=== PATIENT | male | born 1945 | race Caucasian/White ===

== ENCOUNTER 2018-03-13 15:01 | Inpatient (IN) | payer MEDICARE, OTHER ==
[2018-03-13] MEDS ORDERED: VANCOMYCIN IV PER PHARMACY 1 EACH MISC MISCELLANE PRN (15:20)
[2018-03-13] MEDS ORDERED: SODIUM CHLORIDE 0.9% 1,000 ML IV STA (15:20)
--- NOTE | 2018-03-13 15:24 | ED ---
General Adult HPI - General Chief complaint: Recheck/Abnormal Lab/Rx Stated complaint: Wounds on Feet-sent to get IV antibiotics Time Seen by Provider: 03/13/18 15:12 Source: patient, RN notes reviewed Mode of arrival: wheelchair Limitations: no limitations - History of Present Illness Initial comments: Patient 72-year-old male presenting to the emergency room from the wound clinic for admission for wounds to his feet bilaterally. Caregivers at bedside stating that symptoms started approximately a month ago. Patient does stay on a snf. Patient has been following wound care finished up a course of antibiotics of Bactrim. Was seen today and advised come here to the emergency room for admission for failure of outpatient treatment and increased infection. Patient denies any recent fever, chills, shortness of breath, chest pain, back pain, abdominal pain, nausea or vomiting, headaches or visual changes, or any other complaints. - Related Data Home Medications Medication Instructions Recorded Confirmed Acetaminophen Tab [Tylenol Tab] 650 mg PO Q4H PRN 02/06/18 03/13/18 Aspirin [Adult Low Dose Aspirin EC] 81 mg PO DAILY 02/06/18 03/13/18 Ketoconazole 2% Shampoo [Nizoral] 1 applic TOPICAL DIRECTED 02/06/18 03/13/18 Levothyroxine Sodium [Synthroid] 50 mcg PO DAILY 02/06/18 03/13/18 Lisinopril [Zestril] 2.5 mg PO DAILY 02/06/18 03/13/18 Metoprolol Succinate (ER) [Toprol 25 mg PO DAILY 02/06/18 03/13/18 Xl] Omeprazole 20 mg PO DAILY 02/06/18 03/13/18 Potassium Chloride ER [K-Dur 10] 10 meq PO BID 02/06/18 03/13/18 Pravastatin Sodium [Pravachol] 20 mg PO HS 02/06/18 03/13/18 Rivaroxaban [Xarelto] 15 mg PO HS 02/06/18 03/13/18 Torsemide [Demadex] 40 mg PO BID 02/06/18 03/13/18 HYDROcodone/APAP 7.5-325MG [[place] 1 tab PO BID 03/06/18 03/13/18 7.5-325] Amino Acids/Protein Hydrolys 30 ml PO BID 03/13/18 03/13/18 [Pro-Stat Supplement] HYDROcodone/APAP 7.5-325MG [[place] 1 tab PO Q4H PRN 03/13/18 03/13/18 7.5-325] Ketoconazole 2% Shampoo [Nizoral] 1 applic TOPICAL DIRECTED 03/13/18 03/13/18 Mylanta Susp 30 ml PO Q8HR PRN 03/13/18 03/13/18 Sertraline [Zoloft] 50 mg PO HS 03/13/18 03/13/18 Allergies Allergy/AdvReac Type Severity Reaction Status Date / Time No Known Allergies Allergy Verified 03/13/18 15:41 Review of Systems ROS Statement: Those systems with pertinent positive or pertinent negative responses have been documented in the HPI. ROS Other: All systems not noted in ROS Statement are negative. Past Medical History Past Medical History: Atrial Fibrillation, Deep Vein Thrombosis (DVT), GERD/ Reflux, Hyperlipidemia, Hypertension, Vascular Disorder Additional Past Medical History / Comment(s): anemia, 02 2l/min per n/c prn for shortness of breath,hypothyroidism, frequent micturation, wound bottom of left foot, dry skin dermatitis, uses walker History of Any Multi-Drug Resistant Organisms: None Reported Past Surgical History: Unable to Obtain Past Anesthesia/Blood Transfusion Reactions: Unable to Obtain Past Psychological History: Anxiety, Depression Smoking Status: Unknown if ever smoked Past Alcohol Use History: None Reported Past Drug Use History: None Reported - Past Family History Mother Family Medical History: Unable to Obtain General Exam - General Exam Comments Initial Comments: General: The patient is awake and alert, in no distress, and does not appear acutely ill. Eye: Pupils are equal, round and reactive to light, extra-ocular movements are intact. No nystagmus. There is normal conjunctiva bilaterally. No signs of icterus. Ears, nose, mouth and throat: There are moist mucous membranes and no oral lesions. Neck: The neck is supple, there is no tenderness or JVD. Cardiovascular: There is a regular rate and rhythm. No murmur, rub or gallop is appreciated. Respiratory: Lungs are clear to auscultation, respirations are non-labored, breath sounds are equal. No wheezes, stridor, rales, or rhonchi. Musculoskeletal: Normal ROM, no tenderness. Strength 5/5. Sensation intact. Pulses equal bilaterally 2+. Neurological: A&O x 3. CN II-XII intact, There are no obvious motor or sensory deficits. Coordination appears grossly intact. Speech is normal. Skin: Also reviewed lesions measures approximately 4-5 cm in length by 1 cm. There is redness and erythema locally to the top of the foot on the left. Small ulceration to left blakely area measures approximate centimeter across. Ulcer forming on the bottom of the left foot with no drainage. Psychiatric: Cooperative, appropriate mood & affect, normal judgment. Limitations: no limitations Course Vital Signs 03/13/18 15:04 Temperature 98.2 F Pulse Rate 73 Respiratory 18 Rate Blood Pressure 118/72 O2 Sat by Pulse 95 Oximetry Medical Decision Making - Medical Decision Making Patient's x-ray showing no evidence of an osteomyelitis. Patient's labs been reviewed. Cultures are pending. Patient started on Rocephin and vancomycin here in the emergency room. Patient sent in by Dr. Todd for admission for IV antibiotics and outpatient treatment failure. Was on Bactrim previously. Does have bilateral foot ulcers that are infected. Case was discussed with attending physician Dr. Hobbs did discuss the case with Dr. Jansen with the patient. - Lab Data Result diagrams: 03/13/18 15:28 03/13/18 15:28 Lab Results 03/13/18 03/13/18 03/13/18 Range/Units 15:28 15:28 15:28 WBC 7.6 (3.8-10.6) k/uL RBC 4.79 (4.30-5.90) m/uL Hgb 13.4 (13.0-17.5) gm/dL Hct 42.0 (39.0-53.0) % MCV 87.6 (80.0-100.0) fL MCH 27.9 (25.0-35.0) pg MCHC 31.8 (31.0-37.0) g/dL RDW 15.0 (11.5-15.5) % Plt Count 338 (150-450) k/uL Neutrophils % 66 % Lymphocytes % 25 % Monocytes % 5 % Eosinophils % 1 % Basophils % 1 % Neutrophils # 5.0 (1.3-7.7) k/uL Lymphocytes # 1.9 (1.0-4.8) k/uL Monocytes # 0.4 (0-1.0) k/uL Eosinophils # 0.1 (0-0.7) k/uL Basophils # 0.1 (0-0.2) k/uL PT 9.9 (9.0-12.0) sec INR 1.0 (<1.2) APTT 22.2 (22.0-30.0) sec Sodium 143 (137-145) mmol/L Potassium 4.5 (3.5-5.1) mmol/L Chloride 101 (98-107) mmol/L Carbon Dioxide 26 (22-30) mmol/L Anion Gap 16 mmol/L BUN 31 H (9-20) mg/dL Creatinine 1.14 (0.66-1.25) mg/dL Est GFR (CKD-EPI)AfAm 73 (>60 ml/min/1.73 sqM) Est GFR (CKD-EPI)NonAf 63 (>60 ml/min/1.73 sqM) Glucose 96 (74-99) mg/dL Calcium 9.3 (8.4-10.2) mg/dL Total Bilirubin 0.4 (0.2-1.3) mg/dL AST 38 (17-59) U/L ALT 40 (21-72) U/L Alkaline Phosphatase 72 (38-126) U/L Total Protein 7.1 (6.3-8.2) g/dL Albumin 4.0 (3.5-5.0) g/dL Disposition Clinical Impression: Skin ulcers of foot, bilateral, Cellulitis, Failure of outpatient treatment Disposition: ADMITTED IP TO THIS [facility] Condition: Stable Is patient prescribed a controlled substance at d/c from ED?: No Referrals: Chalino Allen MD [Primary Care Provider] - 1-2 days Time of Disposition: 16:37
[2018-03-13] MEDS ORDERED: cefTRIAXone IN SWFI 1,000 MG/10 ML SYRINGE IVP STA (15:29)
[2018-03-13 15:56] LABS: Basophils # (A) 0.1 k/uL (0-0.2); Basophils % (A) 1 %; Eosinophils # (A) 0.1 k/uL (0-0.7); Eosinophils % (A) 1 %; HGB 13.4 gm/dL (13.0-17.5); Lymphocytes # (A) 1.9 k/uL (1.0-4.8); Lymphocytes % (A) 25 %; MCH 27.9 pg (25.0-35.0); MCHC 31.8 g/dL (31.0-37.0); MCV 87.6 fL (80.0-100.0); Mean Platelet Volume 6.5; Monocytes # (A) 0.4 k/uL (0-1.0); Monocytes % (A) 5 %; Neutrophils % (A) 66 %; Platelet Count 338 k/uL (150-450); RBC 4.79 m/uL (4.30-5.90); WBC 7.6 k/uL (3.8-10.6)
[2018-03-13] MEDS ORDERED: VANCOMYCIN 1,750 MG in SODIUM CHLORIDE 0.9% 250 ML IVPB ONE (16:00)
[2018-03-13 16:03] LABS: Calcium 9.3 mg/dL (8.4-10.2); Potassium 4.5 mmol/L (3.5-5.1); Total Bilirubin 0.4 mg/dL (0.2-1.3); Total Protein 7.1 g/dL (6.3-8.2)
[2018-03-13 16:06] LABS: Partial Thromboplastin Time 22.2 sec (22.0-30.0); Prothrombin Time 9.9 sec (9.0-12.0)
--- NOTE | 2018-03-13 16:07 | XR ---
EXAMINATION TYPE: XR foot limited bilateral DATE OF EXAM: 03/13/2018 CLINICAL HISTORY: Nonhealing wounds bilaterally TECHNIQUE: Frontal, oblique, and lateral images of the bilateral feet are obtained. COMPARISON: None FINDINGS: There is no acute fracture/dislocation evident in either foot. The joint spaces in the bi lateral feet appear within normal limits. No suspicious cortical destruction or periosteal reaction i s seen. Symmetric small to moderate size inferior calcaneal spur is noted bilaterally. The overlying soft tissue appears unremarkable bilaterally. IMPRESSION: There is no convincing radiographic evidence for acute osteomyelitis in either foot.
[2018-03-13] MEDS ORDERED: ONDANSETRON 4 MG/2 ML VIAL IVP PRN (16:37)
[2018-03-13] MEDS ORDERED: MORPHINE SULFATE 2 MG/ML SYRINGE IV PRN (16:37)
[2018-03-13] MEDS ORDERED: NALOXONE 0.4 MG/ML 1 ML VIAL IV PRN (16:37)
[2018-03-13] MEDS ORDERED: ACETAMINOPHEN TAB 325 MG TAB PO PRN (16:37)
[2018-03-13] MEDS ORDERED: SODIUM CHLORIDE 0.9% 1,000 ML IV ONE (16:37)
[2018-03-13 20:34] LABS: Appearance,Urine Clear (Clear); Bilirubin,Urine Negative (Negative); Blood,Urine Small (Negative); Color,Urine Yellow; Glucose,Urine (UA) Negative (Negative); Ketones,Urine Negative (Negative); Leukocyte Esterase,Urine Negative (Negative); Nitrite,Urine Negative (Negative); Protein,Urine Trace (Negative); RBC,Urine 15 /hpf (0-5); Specific Gravity,Urine 1.014 (1.001-1.035); Squamous Epithelial Cell,Urine <1 /hpf (0-4); Urobilinogen,Urine <2.0 mg/dL (<2.0); WBC,Urine 2 /hpf (0-5)
[2018-03-13] MEDS: PRAVASTATIN SODIUM 20 MG TAB PO SCH (22:18)
[2018-03-13] MEDS: HYDROcodone/APAP 5-325MG 1 EACH TAB PO PRN (22:19)
[2018-03-13] MEDS: RIVAROXABAN 15 MG TAB PO SCH (22:19)
[2018-03-13] MEDS: SERTRALINE 50 MG TAB PO SCH (22:19)
--- NOTE | 2018-03-13 22:54 | P.HPIM ---
History of Present Illness H&P Date: 03/13/18 Chief Complaint: Bilateral LE ulcers Mr. Whaley is a 70 old white male with mental retardation and PMH of A.fib, DVT , hypothyroidism, hyperlipidemia, anemia , anxiety was sent from the wound care clinic for bilateral LE ulcers. Pt had the swelling on ad off for the past 1 month and was following with Wound care clinic. He was given Bactrim but they was no improvement in his ulcers and so sent here for IV Abx. Pt is mentaly retareded and canot provide much history. So most of it is gathered [facility]. He c/o pain and swelling of both legs and feet. No chest pain, SOB or palpitations. No abdominal pain, nausea ,vomiting or diarrhea. Pt wears diapers for urinary incontinence. Review of Systems REVIEW OF SYSTEMS: PSYCH: no anxiety NEURO:No c/o weakness of the extremties, No facial droop, No speech abnormalities. HEMATOLOGIC: No history of easy bleeding and bruising . No recent infections . RESPIRATORY: No cough, No SOB, No chest discomfort. INTEGUMENT: no rashes OPHTHALMOLOGIC: No blurry vision and no eye discharge : urinary incontinence CARDIAC: No chest pain , shortness of breath , paroxysmal nocturnal dyspnea MUSCULOSKELETAL : No Aches or pains in the joints or muscles. GI: No abdominal pain, nausea, vomiting or diarrhea Past Medical History Past Medical History: Atrial Fibrillation, Dementia, Deep Vein Thrombosis (DVT) , GERD/Reflux, Hyperlipidemia, Hypertension, Vascular Disorder Additional Past Medical History / Comment(s): anemia, 02 2l/min per n/c prn for shortness of breath,hypothyroidism, frequent micturation, wound josemanuel feet dry skin dermatitis, per [facility] pt had a pne vaccine in past but not sure of date. pt uses walker with 1 assist and a w/c chaser.pt has intellectual disabilty-formerly [facility] staff stated pt able to read/write some .needs assist to set up food tray and over see. use short simple instructions History of Any Multi-Drug Resistant Organisms: MRSA Date of last positivie culture/infection: per [facility] [place]- in the last 30- 45 days(?begining of january 2018) MDRO Source:: leg Past Surgical History: Unable to Obtain Additional Past Surgical History / Comment(s): called [facility] [place]- unable to obtain any sx hx. Past Anesthesia/Blood Transfusion Reactions: Unable to Obtain Past Psychological History: Anxiety, Depression Additional Psychological History / Comment(s): developmentally delayed, mentally challenged, dementia Smoking Status: Unknown if ever smoked Past Alcohol Use History: Unable to Obtain Past Drug Use History: Unable to Obtain - Past Family History Mother Family Medical History: Unable to Obtain Father Family Medical History: Unable to Obtain Medications and Allergies Home Medications Medication Instructions Recorded Confirmed Type Acetaminophen Tab [Tylenol Tab] 650 mg PO Q4H PRN 02/06/18 03/13/18 History Aspirin [Adult Low Dose Aspirin EC] 81 mg PO DAILY 02/06/18 03/13/18 History Ketoconazole 2% Shampoo [Nizoral] 1 applic TOPICAL DIRECTED 02/06/18 History Levothyroxine Sodium [Synthroid] 50 mcg PO DAILY 02/06/18 03/13/18 History Lisinopril [Zestril] 2.5 mg PO DAILY 02/06/18 03/13/18 History Metoprolol Succinate (ER) [Toprol 25 mg PO DAILY 02/06/18 03/13/18 History Xl] Omeprazole 20 mg PO DAILY 02/06/18 03/13/18 History Potassium Chloride ER [K-Dur 10] 10 meq PO BID 02/06/18 03/13/18 History Pravastatin Sodium [Pravachol] 20 mg PO HS 02/06/18 03/13/18 History Rivaroxaban [Xarelto] 15 mg PO HS 02/06/18 03/13/18 History Torsemide [Demadex] 40 mg PO BID 02/06/18 03/13/18 History HYDROcodone/APAP 7.5-325MG [[place] 1 tab PO BID 03/06/18 03/13/18 History 7.5-325] Amino Acids/Protein Hydrolys 30 ml PO BID 03/13/18 03/13/18 History [Pro-Stat Supplement] HYDROcodone/APAP 7.5-325MG [[place] 1 tab PO Q4H PRN 03/13/18 03/13/18 History 7.5-325] Ketoconazole 2% Shampoo [Nizoral] 1 applic TOPICAL DIRECTED 03/13/18 History Mylanta Susp 30 ml PO Q8HR PRN 03/13/18 03/13/18 History Sertraline [Zoloft] 50 mg PO HS 03/13/18 03/13/18 History Allergies Allergy/AdvReac Type Severity Reaction Status Date / Time No Known Allergies Allergy Verified 03/13/18 15:41 Physical Exam Vitals: Vital Signs Temp Pulse Pulse Resp BP BP Pulse Ox 03/13/18 18:48 97.4 F L 70 12 116/63 96 03/13/18 18:44 98.7 F 72 18 122/78 98 03/13/18 15:04 98.2 F 73 18 118/72 95 Intake and Output 03/13/18 03/13/18 03/13/18 06:59 14:59 22:59 Other: Weight 99.79 kg GENERAL : in no distress, and does not appear acutely ill. Eye: Pupils are equal, round and reactive to light, no pallor or icterus Ears, nose, mouth and throat: There are moist mucous membranes and no oral lesions. Neck: The neck is supple, there is no tenderness or JVD. Cardiovascular: There is a regular rate and rhythm. No murmur, rub or gallop is appreciated. Respiratory: Lungs are clear to auscultation, respirations are non-labored, breath sounds are equal. No wheezes, stridor, rales, or rhonchi. Musculoskeletal: Normal ROM, no tenderness. Strength 5/5. Sensation intact. Pulses equal bilaterally 2+. Neurological: A&O x 2. No focal deficits . Speech is normal. Lower Extremities - ulcer of 6/5 cm seen on the dorsum of the left foot - there is granulation tissue with surroundings erythema and + tenderness.There are multiple ulcers in different stages of healing with surroundings erythema on the right foot also. Psychiatric: Cooperative, appropriate mood & affect Results CBC & Chem 7: 03/13/18 15:28 03/13/18 15:28 Labs: Abnormal Lab Results - Last 24 Hours (Table) 03/13/18 03/13/18 Range/Units 15:28 20:00 BUN 31 H (9-20) mg/dL Urine Protein Trace H (Negative) Urine Blood Small H (Negative) Urine RBC 15 H (0-5) /hpf Thrombosis Risk Factor Assmnt - Choose All That Apply Any of the Below Risk Factors Present?: Yes Each Factor Represents 1 point: Medical pt on bed rest, Obesity (BMI >25), Swollen legs (current) Other Risk Factors: Yes Each Risk Factor Represents 2 Points: Age 61-74 years Each Risk Factor Represents 3 Points: History of DVT/PE Thrombosis Risk Factor Assessment Total Risk Factor Score: 8 Thrombosis Risk Factor Assessment Level: High Risk Assessment and Plan Assessment: ASSESSMENT Bilateral LE cellulitis - failed OP Abx therapy Atrial Fibrillation Mental retardation Deep Vein Thrombosis Hypothyrodism Urinary incontinence GERD/Reflux Hyperlipidemia Hypertension Peripheral Vascular Disorder Plan: Pt has been started on Vancomycin and a dose of Ceftriaxone was given in the ED. Vascular surgery Dr. Packer , who sent him to the ER has been consulted. Resume home meds and further recs to follow depending on the progress of the patient.
[2018-03-14] MEDS: LEVOTHYROXINE 50 MCG TAB PO SCH (05:54)
[2018-03-14] MEDS: VANCOMYCIN 1,500 MG in SODIUM CHLORIDE 0.9% 250 ML IVPB SCH ×2 (05:54→18:49)
[2018-03-14] MEDS: TORSEMIDE 20 MG TAB PO SCH ×2 (08:54→20:52)
[2018-03-14] MEDS: PANTOPRAZOLE 40 MG TABLET PO SCH (08:54)
[2018-03-14] MEDS: POTASSIUM CHLORIDE ER 10 MEQ TAB.ER.PRT PO SCH ×2 (08:54→20:52)
[2018-03-14] MEDS: LISINOPRIL 2.5 MG TAB PO SCH (08:55)
[2018-03-14] MEDS: ASPIRIN 81 MG PO SCH (08:55)
[2018-03-14] MEDS: METOPROLOL SUCCINATE (ER) 25 MG TAB.ER.24H PO SCH (08:56)
[2018-03-14] MEDS ORDERED: NON-FORMULARY DRUG (Amino Acids/Protein Hydrolys [Pro-Stat Supplement] 30 ML) PO SCH (09:00)
[2018-03-14] MEDS: HYDROcodone/APAP 5-325MG 1 EACH TAB PO PRN ×3 (09:08→20:51)
[2018-03-14 09:35] LABS: Basophils % (A) 1 %; Eosinophils # (A) 0.1 k/uL (0-0.7); Eosinophils % (A) 1 %; HCT 36.6 % (39.0-53.0); HGB 11.7 gm/dL (13.0-17.5); Lymphocytes # (A) 1.2 k/uL (1.0-4.8); Lymphocytes % (A) 20 %; MCH 27.8 pg (25.0-35.0); MCHC 31.9 g/dL (31.0-37.0); MCV 87.1 fL (80.0-100.0); Mean Platelet Volume 6.5; Monocytes # (A) 0.3 k/uL (0-1.0); Monocytes % (A) 5 %; Neutrophils # (A) 4.3 k/uL (1.3-7.7); Neutrophils % (A) 71 %; Platelet Count 258 k/uL (150-450); RBC 4.21 m/uL (4.30-5.90); RDW 15.2 % (11.5-15.5)
[2018-03-14 09:47] LABS: Anion Gap 14 mmol/L; Blood Urea Nitrogen 19 mg/dL (9-20); Carbon Dioxide 23 mmol/L (22-30); Chloride 104 mmol/L (98-107); Glucose 118 mg/dL (74-99); Potassium 4.7 mmol/L (3.5-5.1); Sodium 141 mmol/L (137-145)
[2018-03-14 10:09] VITALS: BMI 32.5
--- NOTE | 2018-03-14 14:01 | CONS ---
DATE OF CONSULTATION: 03/14/2018 This is a 70-year-old gentleman well known to me from the wound clinic. He came to the Wound Clinic yesterday. He has multiple ulcer on both lower extremities involving the dorsal aspect of the foot and down the heel area bilaterally. Patient has a foul odor smell noted from the wound. The patient has been admitted with IV antibiotic and local wound care. MEDICAL HISTORY: History of mental retardation, history of atrial fibrillation, history of hyperlipidemia, history of DVT in the past. PHYSICAL EXAMINATION: NECK: Supple. Trachea central. Chest is auscultation. ABDOMEN: Soft. Femorals are palpable. Patient has a bilateral lower extremity multiple ulcer involving the dorsum aspect of the foot and also involving the toes. PLAN: IV antibiotic and local wound care. Follow with you. Thank you very much. SHARRI / GMN: [id number] / MTDD
--- NOTE | 2018-03-14 16:16 | P.PN ---
Subjective Progress Note Date: 03/14/18 progress note being Dictated for Dr. Sanchez interval history:Mr. Whaley is a 70 old white male with mental retardation and PMH of A.fib, DVT, hypothyroidism, hyperlipidemia, anemia , anxiety was sent from the wound care clinic for bilateral LE ulcers. Pt had the swelling on ad off for the past 1 month and was following with Wound care clinic. He was given Bactrim but they was no improvement in his ulcers and so sent here for IV Abx. Pt is mentaly retareded and canot provide much history. So most of it is gathered from the care givers at the residential. He c/o pain and swelling of both legs and feet. No chest pain, SOB or palpitations. No abdominal pain, nausea ,vomiting or diarrhea. Pt wears diapers for urinary incontinence. Review of Systems REVIEW OF SYSTEMS: PSYCH: no anxiety NEURO:No c/o weakness of the extremties, No facial droop, No speech abnormalities. HEMATOLOGIC: No history of easy bleeding and bruising . No recent infections . RESPIRATORY: No cough, No SOB, No chest discomfort. INTEGUMENT: no rashes OPHTHALMOLOGIC: No blurry vision and no eye discharge : urinary incontinence CARDIAC: No chest pain , shortness of breath , paroxysmal nocturnal dyspnea MUSCULOSKELETAL : No Aches or pains in the joints or muscles. GI: No abdominal pain, nausea, vomiting or diarrhea 03/14/2018 no overnight events. maintained on IV antibiotics. local wound care as per vascular surgery.Afebrile, wound cultures pending.complains of right heel "aching" Objective - Vital Signs Vital signs: Vital Signs Temp 98.5 F 03/14/18 15:00 Pulse 80 03/14/18 15:00 Resp 18 03/14/18 15:00 BP 168/69 03/14/18 15:00 Pulse Ox 97 03/14/18 15:00 Intake & Output 03/13/18 03/14/18 03/14/18 18:59 06:59 18:59 Intake Total 1700 120 Output Total 300 Balance 1400 120 Weight 99.79 kg 99.79 kg Intake: Oral 1700 120 Output: Urine 300 Other: Voiding Method Incontinent Incontinent # Voids 3 3 # Bowel Movements 0 - Exam GENERAL : sitting up in bed, no acute distress Eye: Pupils are equal, round and reactive to light, no pallor or icterus Ears, nose, mouth and throat: There are moist mucous membranes and no oral lesions. Neck: The neck is supple, there is no tenderness or JVD. Cardiovascular: regular rate and rhythm. No murmur, rub or gallop is appreciated. Respiratory: Lungs are clear to auscultation, respirations are non-labored, breath sounds are equal. No wheezes, stridor, rales, or rhonchi. Musculoskeletal: Normal ROM, no tenderness. Strength 5/5. Sensation intact. Pulses equal bilaterally 2+. Neurological: A&O x 2. No focal deficits . Speech is normal. Lower Extremities - ulcer of 6/5 cm seen on the dorsum of the left foot - there is granulation tissue with surroundings erythema and + tenderness.There are multiple ulcers in different stages of healing with surroundings erythema on the right foot also, with foul odor. Psychiatric: Cooperative, appropriate mood & affect. mentally delayed. - Labs CBC & Chem 7: 03/14/18 08:55 03/14/18 08:55 Labs: Abnormal Lab Results - Last 24 Hours (Table) 03/13/18 03/13/18 03/14/18 Range/Units 15:28 20:00 08:55 RBC 4.21 L (4.30-5.90) m/uL Hgb 11.7 L (13.0-17.5) gm/dL Hct 36.6 L (39.0-53.0) % BUN 31 H (9-20) mg/dL Glucose (74-99) mg/dL Urine Protein Trace H (Negative) Urine Blood Small H (Negative) Urine RBC 15 H (0-5) /hpf 03/14/18 Range/Units 08:55 RBC (4.30-5.90) m/uL Hgb (13.0-17.5) gm/dL Hct (39.0-53.0) % BUN (9-20) mg/dL Glucose 118 H (74-99) mg/dL Urine Protein (Negative) Urine Blood (Negative) Urine RBC (0-5) /hpf Microbiology - Last 24 Hours (Table) 03/13/18 15:28 Gram Stain - Preliminary Foot - Left Wound Culture - Preliminary Assessment and Plan Assessment: ASSESSMENT multiple ulcers on bilateral lower extremities,bilateral feet.Bilateral LE cellulitis - failed OP Abx therapy Atrial Fibrillation Mental retardation Deep Vein Thrombosis Hypothyrodism Urinary incontinence GERD/Reflux Hyperlipidemia Hypertension Peripheral Vascular Disorder Plan: continue on current medication regime ,monitoring and symptomatic treatment. Maintain IV antibiotics, infectious disease consulted. Wound care as per vascular surgery. The impression and plan of care has been dictated as directed. : I performed a history and examination of this patient, discussed the same with the dictator. I agree with the dictator's note ,documented as a scribe. Any additional findings or plans will be noted.
[2018-03-14] MEDS: SERTRALINE 50 MG TAB PO SCH (20:52)
[2018-03-14] MEDS: RIVAROXABAN 15 MG TAB PO SCH (20:52)
[2018-03-14] MEDS: PRAVASTATIN SODIUM 20 MG TAB PO SCH (20:52)
[2018-03-15] MEDS: VANCOMYCIN 1,500 MG in SODIUM CHLORIDE 0.9% 250 ML IVPB SCH ×2 (06:00→17:44)
[2018-03-15] MEDS: LEVOTHYROXINE 50 MCG TAB PO SCH (06:00)
[2018-03-15] MEDS: TORSEMIDE 20 MG TAB PO SCH ×2 (08:15→21:35)
[2018-03-15] MEDS: PANTOPRAZOLE 40 MG TABLET PO SCH (08:15)
[2018-03-15] MEDS: POTASSIUM CHLORIDE ER 10 MEQ TAB.ER.PRT PO SCH ×2 (08:15→21:36)
[2018-03-15] MEDS: METOPROLOL SUCCINATE (ER) 25 MG TAB.ER.24H PO SCH (08:16)
[2018-03-15] MEDS: LISINOPRIL 2.5 MG TAB PO SCH (08:16)
[2018-03-15] MEDS: ASPIRIN 81 MG PO SCH (08:17)
[2018-03-15 10:01] LABS: Anion Gap 13 mmol/L; Blood Urea Nitrogen 18 mg/dL (9-20); Calcium 8.6 mg/dL (8.4-10.2); Carbon Dioxide 27 mmol/L (22-30); Chloride 100 mmol/L (98-107); Glucose 130 mg/dL (74-99); Potassium 4.3 mmol/L (3.5-5.1); Sodium 140 mmol/L (137-145)
--- NOTE | 2018-03-15 15:58 | CDI ---
Last Revision, September 2017 Documentation Clarification Form Date: 03/15/18 From: Shahnaz Padgett RN, CCDS Admit Date: 03/13/2018 5:47:00 PM Patient Name: Paco Whaley Visit Number: [id number] Discharge Date: ATTENTION: The Clinical Documentation Specialists (CDI) and [facility] Coding Staff appreciate your assistance in clarifying documentation. Please respond to the clarification below the line at the bottom and electronically sign. The CDI & [facility] Coding staff will review the response and follow-up if needed. Please note: Queries are made part of the Legal Health Record. If you have any questions, please contact the author of this message via ITS. Dr. Jennifer Janesn Atrial fibrillation is documented in the ER, H&P and and your progress notes. History/Risk Factors: A. Fibrillation, DVT, Hypothyroidism, Mental retardation, Anemia Clinical Indicators: Per past medical history and ongoing treatment. Treatment: ASA, Xarelto Monitor Labs In your professional opinion, can you please clarify the type of atrial fibrillation, if known? Chronic/Permanent Paroxysmal Persistent Other, please specify Unable to determine Please continue to document in your progress notes and discharge summary in order to capture severity of illness and risk of mortality. Include clinical findings that support your diagnosis. MTDD
[2018-03-15] MEDS ORDERED: VANCOMYCIN TROUGH DUE 1 EACH MISC MISCELLANE ONE (17:00)
--- NOTE | 2018-03-15 18:03 | P.PN ---
Subjective Progress Note Date: 03/15/18 progress note being Dictated for Dr. Sanchez interval history:Mr. Whaley is a 70 old white male with mental retardation and PMH of A.fib, DVT, hypothyroidism, hyperlipidemia, anemia , anxiety was sent from the wound care clinic for bilateral LE ulcers. Pt had the swelling on ad off for the past 1 month and was following with Wound care clinic. He was given Bactrim but they was no improvement in his ulcers and so sent here for IV Abx. Pt is mentaly retareded and canot provide much history. So most of it is gathered from the care givers at the custodial. He c/o pain and swelling of both legs and feet. No chest pain, SOB or palpitations. No abdominal pain, nausea ,vomiting or diarrhea. Pt wears diapers for urinary incontinence. Review of Systems REVIEW OF SYSTEMS: PSYCH: no anxiety NEURO:No c/o weakness of the extremties, No facial droop, No speech abnormalities. HEMATOLOGIC: No history of easy bleeding and bruising . No recent infections . RESPIRATORY: No cough, No SOB, No chest discomfort. INTEGUMENT: no rashes OPHTHALMOLOGIC: No blurry vision and no eye discharge : urinary incontinence CARDIAC: No chest pain , shortness of breath , paroxysmal nocturnal dyspnea MUSCULOSKELETAL : No Aches or pains in the joints or muscles. GI: No abdominal pain, nausea, vomiting or diarrhea 03/14/2018 no overnight events. maintained on IV antibiotics. local wound care as per vascular surgery.Afebrile, wound cultures pending.complains of right heel "aching" 03/15/2018 maintained on vancomycin. Infectious disease consult in place with further recommendations pending. Afebrile. Wound cultures growing gram- negative bacilli, presumptive MRSA. Objective - Vital Signs Vital signs: Vital Signs Temp 97.2 F L 03/15/18 14:25 Pulse 80 03/15/18 14:25 Resp 18 03/15/18 14:25 BP 141/68 03/15/18 14:25 Pulse Ox 97 03/15/18 14:25 Intake & Output 03/14/18 03/15/18 03/15/18 18:59 06:59 18:59 Intake Total 370 Output Total 300 525 Balance 70 -525 Weight 99.79 kg Intake: Intake, IV Titration 250 Amount Vancomycin 1,500 mg In 250 Sodium Chloride 0.9% 250 ml @ 125 mls/hr IVPB Q12H [facility] Rx#:[id number] Oral 120 Output: Urine 300 525 Other: Voiding Method Incontinent Incontinent Incontinent # Voids 2 2 2 # Bowel Movements 0 1 - Exam GENERAL : sitting up in bed, no acute distress Eye: Pupils are equal, round and reactive to light, no pallor or icterus Ears, nose, mouth and throat: There are moist mucous membranes and no oral lesions. Neck: The neck is supple, there is no tenderness or JVD. Cardiovascular: regular rate and rhythm. No murmur, rub or gallop is appreciated. Respiratory: Lungs are clear to auscultation, respirations are non-labored, breath sounds are equal. No wheezes, stridor, rales, or rhonchi. Musculoskeletal: Normal ROM, no tenderness. Strength 5/5. Sensation intact. Pulses equal bilaterally 2+. Neurological: A&O x 2. No focal deficits . Speech is normal. Lower Extremities - bilateral lower extremity dressings clean dry and intact Psychiatric: Cooperative, appropriate mood & affect. mentally delayed. Microbiology 03/13/18 15:28 Blood Blood Culture - Preliminary No Growth after 48 hours 03/13/18 15:28 Foot - Left Gram Stain - Preliminary 03/13/18 15:28 Foot - Left Wound Culture - Preliminary Gram Neg Bacilli Presumptive MRSA - Labs CBC & Chem 7: 03/14/18 08:55 03/15/18 09:01 Labs: Abnormal Lab Results - Last 24 Hours (Table) 03/15/18 Range/Units 09:01 Glucose 130 H (74-99) mg/dL Microbiology - Last 24 Hours (Table) 03/13/18 15:28 Blood Culture - Preliminary Blood No Growth after 48 hours 03/13/18 15:28 Gram Stain - Preliminary Foot - Left Wound Culture - Preliminary Gram Neg Bacilli Presumptive MRSA Assessment and Plan Assessment: ASSESSMENT multiple ulcers on bilateral lower extremities,bilateral feet.Bilateral LE cellulitis - failed OP Abx therapy . Wound cultures growing presumptive MRSA, gram-negative bacilli. Chronic Atrial Fibrillation Mental retardation Deep Vein Thrombosis Hypothyrodism Urinary incontinence GERD/Reflux Hyperlipidemia Hypertension Peripheral Vascular Disorder Plan: continue on current medication regime ,monitoring and symptomatic treatment. Maintain IV antibiotics as per ID. Await final culture results. Wound care as per vascular surgery. The impression and plan of care has been dictated as directed. : I performed a history and examination of this patient, discussed the same with the dictator. I agree with the dictator's note ,documented as a scribe. Any additional findings or plans will be noted.
[2018-03-15] MEDS: SERTRALINE 50 MG TAB PO SCH (21:36)
[2018-03-15] MEDS: PRAVASTATIN SODIUM 20 MG TAB PO SCH (21:36)
[2018-03-15] MEDS: RIVAROXABAN 15 MG TAB PO SCH (21:36)
[2018-03-15] MEDS: cefTRIAXone IN SWFI 2,000 MG/20 ML SYRINGE IVP SCH (23:22)
--- NOTE | 2018-03-15 23:41 | CONS ---
CONSULTATION DATE OF SERVICE: 03/15/2018 REASON FOR CONSULTATION: Bilateral lower extremity wounds and cellulitis. HISTORY OF PRESENT ILLNESS: The patient is a 72-year-old male with a past medical history significant for bilateral lower extremity venostasis ulcers, mostly involving the dorsal aspect of his bilateral feet, which the patient has had for more than a month as per documentation of the ER physician, as the patient himself was not able to tell me exactly when it started and for long he has had it. Patient follows with Dr. Maynard in the wound care center at [facility] and apparently he was noticed to have significant drainage from these wounds with concern about possible infection. He has been subsequently admitted to the hospital for IV antibiotic therapy. Patient is a very poor historian, so most of the information has been obtained from review of the chart and talking to nursing staff. Currently the patient has been afebrile and did not have any elevated white count. REVIEW OF SYSTEMS: Review of systems could not be reliably obtained. The positive points have been mentioned in HPI. PAST MEDICAL HISTORY: 1. Atrial fibrillation. 2. DVT. 3. Hyperlipidemia. 4. Hypertension. 5. Venous insufficiency. 6. Hypothyroidism. 7. Anxiety. 8. Depression. PAST SURGICAL HISTORY: No major surgery recorded in the chart. SOCIAL HISTORY: No history of smoking, drinking or drug use. FAMILY HISTORY: No pertinent findings noticed. ALLERGIES: NO KNOWN DRUG ALLERGIES. CURRENT MEDICATIONS: 1. Tylenol. 2. [place]. 3. Aspirin. 4. Synthroid. 5. Zestril. 6. Toprol XL. 7. Narcan. 8. Zofran. 9. Protonix. 10.K-Dur. 11.Pravachol. 12.Xarelto. 13.Zoloft. 14.Demadex. 15.Vancomycin, Pharmacy to dose. PHYSICAL EXAMINATION: Blood pressure is 141/68 with a pulse of 80, temperature 97.2. He is 97% on room air. General description is an elderly male lying in bed in no distress. No tachypnea or accessory muscle of respiration use. HEENT examination shows no pallor or scleral icterus. Oral mucosa membrane is moist. No pharyngeal erythema or thrush. NECK: Trachea is central. No thyromegaly. LUNGS: Unlabored breathing. Clear to auscultation anteriorly. No wheeze or crackle. HEART: S1, S2. Regular rate and rhythm. No added sound. ABDOMEN: Soft. No tenderness. No guarding or rigidity. EXTREMITIES: No edema of feet. On examination of the feet, the patient did have multiple wounds which did show some slough tissue, but no significant surrounding erythema or any foul-smelling drainage was noticed. Neurologically the patient is awake, alert, oriented x1. Mood and affect normal. LABS: Hemoglobin is 11.7, white count 6.0 with a BUN of 18, creatinine 0.85. Electrolytes have been normal. Urine has been negative. Wound culture is currently showing presumptive MRSA and Proteus mirabilis. DIAGNOSTIC IMPRESSION AND PLAN: Patient admitted to hospital with bilateral lower extremity venostasis ulcers with secondary cellulitis. Clinical suspicion is low for underlying deep infection. Apparently failing outpatient Bactrim DS therapy, with the wound culture now showing Proteus mirabilis and presumptive MRSA. PLAN: 1. Local wound care to continue with Medihoney. 2. Will keep the patient on vancomycin, Pharmacy to dose, watching his kidney function closely, and add Rocephin 2 grams daily. 3. Depending upon his clinical response in the next day or two, will determine his discharge antibiotic; more likely oral. Thank you for this consultation. Will follow this patient along with you. MMODL / IJN: [id number] /
[2018-03-16] MEDS: VANCOMYCIN 1,500 MG in SODIUM CHLORIDE 0.9% 250 ML IVPB SCH (05:36)
[2018-03-16] MEDS: LEVOTHYROXINE 50 MCG TAB PO SCH (06:59)
[2018-03-16] MEDS: METOPROLOL SUCCINATE (ER) 25 MG TAB.ER.24H PO SCH (07:53)
[2018-03-16] MEDS: ASPIRIN 81 MG PO SCH (07:54)
[2018-03-16] MEDS: PANTOPRAZOLE 40 MG TABLET PO SCH (07:54)
[2018-03-16] MEDS: LISINOPRIL 2.5 MG TAB PO SCH (07:54)
[2018-03-16] MEDS: TORSEMIDE 20 MG TAB PO SCH ×2 (07:55→20:52)
[2018-03-16] MEDS: POTASSIUM CHLORIDE ER 10 MEQ TAB.ER.PRT PO SCH ×2 (07:55→20:53)
[2018-03-16 09:03] LABS: Basophils # (A) 0.1 k/uL (0-0.2); Basophils % (A) 1 %; Eosinophils # (A) 0.2 k/uL (0-0.7); Eosinophils % (A) 3 %; HCT 40.3 % (39.0-53.0); Lymphocytes # (A) 1.3 k/uL (1.0-4.8); Lymphocytes % (A) 18 %; MCH 28.6 pg (25.0-35.0); MCHC 32.2 g/dL (31.0-37.0); MCV 88.8 fL (80.0-100.0); Mean Platelet Volume 6.7; Monocytes # (A) 0.3 k/uL (0-1.0); Monocytes % (A) 4 %; Neutrophils # (A) 5.3 k/uL (1.3-7.7); Neutrophils % (A) 73 %; Platelet Count 246 k/uL (150-450); RBC 4.54 m/uL (4.30-5.90); RDW 15.7 % (11.5-15.5); WBC 7.3 k/uL (3.8-10.6)
[2018-03-16 09:38] LABS: Anion Gap 16 mmol/L; Blood Urea Nitrogen 18 mg/dL (9-20); Calcium 8.9 mg/dL (8.4-10.2); Carbon Dioxide 22 mmol/L (22-30); Chloride 101 mmol/L (98-107); Glucose 176 mg/dL (74-99); Potassium 4.3 mmol/L (3.5-5.1); Sodium 139 mmol/L (137-145)
[2018-03-16] MEDS ORDERED: MORPHINE ORAL SOLN 10 MG/5 ML CUP PO PRN (14:09)
[2018-03-16] MEDS: VANCOMYCIN 1,250 MG in SODIUM CHLORIDE 0.9% 250 ML IVPB SCH (16:57)
--- NOTE | 2018-03-16 17:26 | P.PN ---
Subjective Progress Note Date: 03/16/18 progress note being Dictated for Dr. Sanchez interval history:Mr. Whaley is a 70 old white male with mental retardation and PMH of A.fib, DVT, hypothyroidism, hyperlipidemia, anemia , anxiety was sent from the wound care clinic for bilateral LE ulcers. Pt had the swelling on ad off for the past 1 month and was following with Wound care clinic. He was given Bactrim but they was no improvement in his ulcers and so sent here for IV Abx. Pt is mentaly retareded and canot provide much history. So most of it is gathered from the care givers at the half-way. He c/o pain and swelling of both legs and feet. No chest pain, SOB or palpitations. No abdominal pain, nausea ,vomiting or diarrhea. Pt wears diapers for urinary incontinence. Review of Systems REVIEW OF SYSTEMS: PSYCH: no anxiety NEURO:No c/o weakness of the extremties, No facial droop, No speech abnormalities. HEMATOLOGIC: No history of easy bleeding and bruising . No recent infections . RESPIRATORY: No cough, No SOB, No chest discomfort. INTEGUMENT: no rashes OPHTHALMOLOGIC: No blurry vision and no eye discharge : urinary incontinence CARDIAC: No chest pain , shortness of breath , paroxysmal nocturnal dyspnea MUSCULOSKELETAL : No Aches or pains in the joints or muscles. GI: No abdominal pain, nausea, vomiting or diarrhea 03/14/2018 no overnight events. maintained on IV antibiotics. local wound care as per vascular surgery.Afebrile, wound cultures pending.complains of right heel "aching" 03/15/2018 maintained on vancomycin. Infectious disease consult in place with further recommendations pending. Afebrile. Wound cultures growing gram- negative bacilli, presumptive MRSA. 03/16/2018 no overnight events. Wound cultures reporting Proteus mirabilis, presumptive MRSA. Antibiotics as per ID. Local wound care with medi-honey with moist gauze. Afebrile, normal WBC. Objective - Vital Signs Vital signs: Vital Signs Temp 97.9 F 03/16/18 16:04 Pulse 78 03/16/18 16:04 Resp 18 03/16/18 16:04 BP 144/95 03/16/18 16:04 Pulse Ox 93 L 03/16/18 16:04 Intake & Output 03/15/18 03/16/18 03/16/18 18:59 06:59 18:59 Output Total 725 200 Balance -725 -200 Weight 99.79 kg Output: Urine 725 200 Other: Voiding Method Incontinent Bedpan # Voids 1 1 5 # Bowel Movements 1 - Exam GENERAL : sitting up in bed, no acute distress Eye: Pupils are equal, round and reactive to light, no pallor or icterus Ears, nose, mouth and throat: There are moist mucous membranes and no oral lesions. Neck: The neck is supple, there is no tenderness or JVD. Cardiovascular: regular rate and rhythm. No murmur, rub or gallop is appreciated. Respiratory: Lungs are clear to auscultation, respirations are non-labored, breath sounds are equal. No wheezes, stridor, rales, or rhonchi. Musculoskeletal: Normal ROM, no tenderness. Strength 5/5. Sensation intact. Pulses equal bilaterally 2+. Neurological: A&O x 2. No focal deficits . Speech is normal. Lower Extremities - bilateral lower extremity dressings clean dry and intact Psychiatric: Cooperative, appropriate mood & affect. mentally delayed. Microbiology 03/13/18 15:28 Foot - Left Gram Stain - Preliminary 03/13/18 15:28 Foot - Left Wound Culture - Preliminary Proteus mirabilis Presumptive MRSA 03/13/18 15:28 Blood Blood Culture - Preliminary No Growth after 48 hours - Labs CBC & Chem 7: 03/16/18 08:41 03/16/18 08:41 Labs: Abnormal Lab Results - Last 24 Hours (Table) 03/16/18 03/16/18 Range/Units 08:41 08:41 RDW 15.7 H (11.5-15.5) % Glucose 176 H (74-99) mg/dL Microbiology - Last 24 Hours (Table) 03/13/18 15:28 Gram Stain - Preliminary Foot - Left Wound Culture - Preliminary Proteus mirabilis Presumptive MRSA 03/13/18 15:28 Blood Culture - Preliminary Blood No Growth after 48 hours Assessment and Plan Assessment: ASSESSMENT multiple ulcers on bilateral lower extremities,bilateral feet.Bilateral LE cellulitis - failed OP Abx therapy . Wound cultures growing presumptive MRSA, Proteus mirabilis Chronic Atrial Fibrillation Mental retardation Deep Vein Thrombosis Hypothyrodism Urinary incontinence GERD/Reflux Hyperlipidemia Hypertension Peripheral Vascular Disorder Plan: continue on current medication regime ,monitoring and symptomatic treatment. Maintain IV antibiotics/Wound Care as per ID. Final culture results pending. Discharge planning in progress for tomorrow to [facility]. The impression and plan of care has been dictated as directed. : I performed a history and examination of this patient, discussed the same with the dictator. I agree with the dictator's note ,documented as a scribe. Any additional findings or plans will be noted.
[2018-03-16] MEDS: SERTRALINE 50 MG TAB PO SCH (20:52)
[2018-03-16] MEDS: PRAVASTATIN SODIUM 20 MG TAB PO SCH (20:52)
[2018-03-16] MEDS: RIVAROXABAN 15 MG TAB PO SCH (20:52)
[2018-03-16] MEDS: cefTRIAXone IN SWFI 2,000 MG/20 ML SYRINGE IVP SCH (20:52)
[2018-03-16] MEDS: HYDROcodone/APAP 5-325MG 1 EACH TAB PO PRN (23:20)
--- NOTE | 2018-03-17 | PN ---
PROGRESS NOTE DATE OF SERVICE: 03/16/2018 REASON FOR FOLLOWUP: Bilateral foot ulcers and cellulitis. INTERVAL HISTORY: The patient is currently afebrile. He is breathing comfortably. Denies any chest pain, abdominal pain, or any worsening pain to the foot area. EXAMINATION: Blood pressure 144/95, pulse of 78, temperature 97.9. He is 93% on room air. General description is an elderly male lying in bed in no distress. RESPIRATORY SYSTEM: Unlabored breathing, clear to auscultation anteriorly. HEART: S1, S2. Regular rate and rhythm. ABDOMEN: Soft, no tenderness. Bilateral foot wound with minimal slough tissue. No signs of any foul smelling drainage. LABS: Hemoglobin is 13, white count 7.3. BUN of 18, creatinine 0.89. DIAGNOSTIC IMPRESSION AND PLAN: Patient with bilateral foot wound with secondary cellulitis, currently covered with Rocephin and vancomycin. Will continue waiting for the sensitivity on the to determine his oral antibiotics. Continue supportive care. MMODL / IJN: [id number] /
[2018-03-17] MEDS: VANCOMYCIN 1,250 MG in SODIUM CHLORIDE 0.9% 250 ML IVPB SCH ×2 (06:02→17:35)
[2018-03-17] MEDS: LEVOTHYROXINE 50 MCG TAB PO SCH (06:15)
[2018-03-17 07:51] LABS: Basophils # (A) 0.1 k/uL (0-0.2); Basophils % (A) 1 %; Eosinophils # (A) 0.2 k/uL (0-0.7); Eosinophils % (A) 3 %; HCT 38.7 % (39.0-53.0); HGB 12.6 gm/dL (13.0-17.5); Lymphocytes # (A) 1.4 k/uL (1.0-4.8); Lymphocytes % (A) 19 %; MCH 28.2 pg (25.0-35.0); MCHC 32.5 g/dL (31.0-37.0); MCV 86.7 fL (80.0-100.0); Mean Platelet Volume 6.5; Monocytes # (A) 0.6 k/uL (0-1.0); Monocytes % (A) 8 %; Neutrophils # (A) 4.9 k/uL (1.3-7.7); Neutrophils % (A) 68 %; Platelet Count 239 k/uL (150-450); RBC 4.46 m/uL (4.30-5.90); RDW 15.3 % (11.5-15.5); WBC 7.3 k/uL (3.8-10.6)
[2018-03-17] MEDS: LISINOPRIL 2.5 MG TAB PO SCH (07:52)
[2018-03-17] MEDS: PANTOPRAZOLE 40 MG TABLET PO SCH (07:52)
[2018-03-17] MEDS: ASPIRIN 81 MG PO SCH (07:52)
[2018-03-17] MEDS: TORSEMIDE 20 MG TAB PO SCH ×2 (07:52→20:16)
[2018-03-17] MEDS: METOPROLOL SUCCINATE (ER) 25 MG TAB.ER.24H PO SCH (07:52)
[2018-03-17] MEDS: POTASSIUM CHLORIDE ER 10 MEQ TAB.ER.PRT PO SCH ×2 (07:52→20:16)
[2018-03-17 08:15] LABS: Anion Gap 12 mmol/L; Blood Urea Nitrogen 18 mg/dL (9-20); Calcium 8.7 mg/dL (8.4-10.2); Carbon Dioxide 26 mmol/L (22-30); Chloride 103 mmol/L (98-107); Glucose 93 mg/dL (74-99); Potassium 4.3 mmol/L (3.5-5.1); Sodium 141 mmol/L (137-145)
--- NOTE | 2018-03-17 13:18 | P.DS ---
Providers Date of admission: 03/13/18 17:47 Expected date of discharge: 03/17/18 Attending physician: Jennifer Sanchez Consults: 03/13/18 16:37 Consult Physician Stat Consulting Provider: Mal Jackson Consult Reason/Comments: Foot ulcer Do you want consulting provider notified?: Yes 03/14/18 19:47 Consult Physician Urgent Consulting Provider: Jhon Felix Consult Reason/Comments: cellulitis/venous ulcers to b/l legs/feet Do you want consulting provider notified?: Yes Primary care physician: [facility] Course: Final Diagnoses: multiple ulcers on bilateral lower extremities,bilateral feet.Bilateral LE cellulitis - failed OP Abx therapy . Wound cultures growing presumptive MRSA, Proteus mirabilis Chronic Atrial Fibrillation Mental retardation Deep Vein Thrombosis Hypothyrodism Urinary incontinence GERD/Reflux Hyperlipidemia Hypertension Peripheral Vascular Disorder Hospital Course:Mr. Whaley is a 70 old white male with mental retardation and PMH of A.fib, DVT, hypothyroidism, hyperlipidemia, anemia , anxiety was sent from the wound care clinic for bilateral LE ulcers. Pt had the swelling on ad off for the past 1 month and was following with Wound care clinic. He was given Bactrim but they was no improvement in his ulcers and so sent here for IV Abx. Pt is mentaly retareded and canot provide much history. So most of it is gathered from the care givers at the longterm. He c/o pain and swelling of both legs and feet. No chest pain, SOB or palpitations. No abdominal pain, nausea ,vomiting or diarrhea. Pt wears diapers for urinary incontinence. Evaluated by both vascular surgery and infectious disease. maintained on vancomycin ,Rocephin and local wound care. Wound cultures reporting MRSA and Proteus Mirabilis. Significant clinical improvement. Patient has been cleared for discharge by all consults. Patient is being discharged [facility] EXAM: GENERAL : sitting up in bed, no acute distress Cardiovascular: regular rate and rhythm. No murmur, rub or gallop is appreciated. Respiratory: Lungs are clear to auscultation, respirations are non-labored, breath sounds are equal. No wheezes, stridor, rales, or rhonchi. Musculoskeletal: Normal ROM, no tenderness. Strength 5/5. Sensation intact. Pulses equal bilaterally 2+. Neurological: A&O x 2. No focal deficits . Speech is normal. Lower Extremities - bilateral lower extremity dressings clean dry and intact The impression and plan of care has been dictated as directed. : I performed a history and examination of this patient, discussed the same with the dictator. I agree with the dictator's note ,documented as a scribe. Any additional findings or plans will be noted. Time taken: 35 minutes Patient Condition at Discharge: Stable Plan - Discharge Summary Discharge Rx Participant: No New Discharge Prescriptions: New HYDROcodone/APAP 5-325MG [[place] 5-325] 1 each PO Q4HR PRN #18 tab PRN Reason: Moderate Pain Continue Rivaroxaban [Xarelto] 15 mg PO HS Torsemide [Demadex] 40 mg PO BID Acetaminophen Tab [Tylenol] 650 mg PO Q4H PRN PRN Reason: Pain Pravastatin Sodium [Pravachol] 20 mg PO HS Potassium Chloride ER [K-Dur 10] 10 meq PO BID Omeprazole 20 mg PO DAILY Metoprolol Succinate (ER) [Toprol XL] 25 mg PO DAILY Lisinopril [Zestril] 2.5 mg PO DAILY Levothyroxine Sodium [Synthroid] 50 mcg PO DAILY Ketoconazole 2% Shampoo [Nizoral] 1 applic TOPICAL DIRECTED Aspirin [Adult Low Dose Aspirin EC] 81 mg PO DAILY Amino Acids/Protein Hydrolys [Pro-Stat Supplement] 30 ml PO BID Sertraline [Zoloft] 50 mg PO HS Ketoconazole 2% Shampoo [Nizoral] 1 applic TOPICAL DIRECTED Mylanta Susp 30 ml PO Q8HR PRN PRN Reason: Indigestion Discontinued HYDROcodone/APAP 7.5-325MG [[place] 7.5-325] 1 tab PO BID HYDROcodone/APAP 7.5-325MG [[place] 7.5-325] 1 tab PO Q4H PRN PRN Reason: Pain Discharge Medication List Acetaminophen Tab [Tylenol] 650 mg PO Q4H PRN 02/06/18 [History] Aspirin [Adult Low Dose Aspirin EC] 81 mg PO DAILY 02/06/18 [History] Ketoconazole 2% Shampoo [Nizoral] 1 applic TOPICAL DIRECTED 02/06/18 [History ] Levothyroxine Sodium [Synthroid] 50 mcg PO DAILY 02/06/18 [History] Lisinopril [Zestril] 2.5 mg PO DAILY 02/06/18 [History] Metoprolol Succinate (ER) [Toprol XL] 25 mg PO DAILY 02/06/18 [History] Omeprazole 20 mg PO DAILY 02/06/18 [History] Potassium Chloride ER [K-Dur 10] 10 meq PO BID 02/06/18 [History] Pravastatin Sodium [Pravachol] 20 mg PO HS 02/06/18 [History] Rivaroxaban [Xarelto] 15 mg PO HS 02/06/18 [History] Torsemide [Demadex] 40 mg PO BID 02/06/18 [History] Amino Acids/Protein Hydrolys [Pro-Stat Supplement] 30 ml PO BID 03/13/18 [ History] Ketoconazole 2% Shampoo [Nizoral] 1 applic TOPICAL DIRECTED 03/13/18 [History ] Mylanta Susp 30 ml PO Q8HR PRN 03/13/18 [History] Sertraline [Zoloft] 50 mg PO HS 03/13/18 [History] HYDROcodone/APAP 5-325MG [[place] 5-325] 1 each PO Q4HR PRN #18 tab 03/17/18 [Rx] Follow up Appointment(s)/Referral(s): Chalino Allen MD [Primary Care Provider] - 3 Days Mal Jackson MD [STAFF PHYSICIAN] - 1 Week Jhon Felix MD [STAFF PHYSICIAN] - 1 Week Activity/Diet/Wound Care/Special Instructions: [facility] Antibx as per ID bilateral foot ulcer dressing change- cynthia mina kerlix DAILY cbc,bmp in 3 daYs Discharge Disposition: TRANSFER TO SNF/F
--- NOTE | 2018-03-17 15:36 | PN ---
PROGRESS NOTE DATE OF SERVICE: 03/17/2018 REASON FOR FOLLOWUP: Bilateral foot wound cellulitis. INTERVAL HISTORY: The patient is currently afebrile. He is breathing comfortably. Denies having any chest pain, no cough, no abdominal pain. Only pain to the bilateral leg wound area. PHYSICAL EXAMINATION: Blood pressure 119/64, pulse of 72, temperature 97.3, he is 91% on room air. General description is an elderly male, lying in bed in no distress. RESPIRATORY SYSTEM: Unlabored breathing, clear to auscultation anteriorly. HEART: S1, S2. Regular rate and rhythm. ABDOMEN: Soft, no tenderness. Bilateral feet wounds with no obvious drainage on the dressing. LABS: BUN of 18, creatinine 0.89. The patient wound culture with MRSA with no oral option of antibiotic. DIAGNOSTIC IMPRESSION AND PLAN: Patient with bilateral foot wound with secondary cellulitis with culture showing MRSA that is resistant to the Bactrim, tetracycline. Oral option will be which cannot be used because the patient is on Zoloft. Hence, we will get a PICC line for IV vancomycin, pharmacy to dose, target of 15 for about 10 days to 2 weeks along with IV Rocephin. Local wound care to continue with [facility]. Continue supportive care. MMODL / IJN: [id number] /
[2018-03-17] MEDS ORDERED: LIDOCAINE 2% INJ 20 MG/ML SQ ONE (17:07)
[2018-03-17] MEDS: SERTRALINE 50 MG TAB PO SCH (20:16)
[2018-03-17] MEDS: RIVAROXABAN 15 MG TAB PO SCH (20:16)
[2018-03-17] MEDS: PRAVASTATIN SODIUM 20 MG TAB PO SCH (20:16)
[2018-03-17] MEDS: cefTRIAXone IN SWFI 2,000 MG/20 ML SYRINGE IVP SCH (20:16)
[2018-03-18 06:19] VITALS: BP 133/82; PULSE 80; RESP 20; TEMP 99
[2018-03-18] MEDS: VANCOMYCIN 1,250 MG in SODIUM CHLORIDE 0.9% 250 ML IVPB SCH (06:30)
[2018-03-18] MEDS: LEVOTHYROXINE 50 MCG TAB PO SCH (06:30)
[2018-03-18 08:22] LABS: Basophils # (A) 0.1 k/uL (0-0.2); Basophils % (A) 1 %; Eosinophils # (A) 0.2 k/uL (0-0.7); Eosinophils % (A) 3 %; HCT 40.9 % (39.0-53.0); HGB 13.2 gm/dL (13.0-17.5); Lymphocytes # (A) 1.4 k/uL (1.0-4.8); Lymphocytes % (A) 18 %; MCH 28.5 pg (25.0-35.0); MCHC 32.4 g/dL (31.0-37.0); Mean Platelet Volume 6.3; Monocytes # (A) 0.5 k/uL (0-1.0); Monocytes % (A) 6 %; Neutrophils # (A) 5.6 k/uL (1.3-7.7); Neutrophils % (A) 71 %; Platelet Count 246 k/uL (150-450); RBC 4.65 m/uL (4.30-5.90); RDW 15.7 % (11.5-15.5); WBC 7.9 k/uL (3.8-10.6)
[2018-03-18] MEDS: PANTOPRAZOLE 40 MG TABLET PO SCH (08:58)
[2018-03-18] MEDS: POTASSIUM CHLORIDE ER 10 MEQ TAB.ER.PRT PO SCH (08:59)
[2018-03-18] MEDS: ASPIRIN 81 MG PO SCH (08:59)
[2018-03-18] MEDS: LISINOPRIL 2.5 MG TAB PO SCH (08:59)
[2018-03-18] MEDS: METOPROLOL SUCCINATE (ER) 25 MG TAB.ER.24H PO SCH (08:59)
[2018-03-18] MEDS: TORSEMIDE 20 MG TAB PO SCH (08:59)
[2018-03-18 09:38] LABS: Anion Gap 12 mmol/L; Blood Urea Nitrogen 19 mg/dL (9-20); Calcium 8.9 mg/dL (8.4-10.2); Carbon Dioxide 26 mmol/L (22-30); Chloride 104 mmol/L (98-107); Glucose 94 mg/dL (74-99); Potassium 4.2 mmol/L (3.5-5.1); Sodium 142 mmol/L (137-145)
--- NOTE | 2018-03-18 16:33 | P.DS ---
Providers Date of admission: 03/13/18 17:47 Attending physician: Jennifer Jansen Consults: 03/13/18 16:37 Consult Physician Stat Consulting Provider: Mal Jackson Consult Reason/Comments: Foot ulcer Do you want consulting provider notified?: Yes 03/14/18 19:47 Consult Physician Urgent Consulting Provider: Jhon Felix Consult Reason/Comments: cellulitis/venous ulcers to b/l legs/feet Do you want consulting provider notified?: Yes [facility] Course: Patient received Lasix stents vancomycin is being discharged in stable medical condition today patient was seen and examined today without any significant change in the clinical exam compared to yesterday. Patient ended up staying for the vancomycin dose. Please refer to my dictation of my nurse practitioner from yesterday for further details. Patient Condition at Discharge: Stable Plan - Discharge Summary Discharge Rx Participant: No New Discharge Prescriptions: New HYDROcodone/APAP 5-325MG [Cyrus 5-325] 1 each PO Q4HR PRN #18 tab PRN Reason: Moderate Pain cefTRIAXone [Rocephin] 2,000 mg IVP Q24HR #14 bag Vancomycin HCl in 5 % Dextrose [Vancomycin 1 Gram/250 ml-D5w] 1,250 mg IV BID #28 plast..bag Continue Rivaroxaban [Xarelto] 15 mg PO HS Torsemide [Demadex] 40 mg PO BID Acetaminophen Tab [Tylenol] 650 mg PO Q4H PRN PRN Reason: Pain Pravastatin Sodium [Pravachol] 20 mg PO HS Potassium Chloride ER [K-Dur 10] 10 meq PO BID Omeprazole 20 mg PO DAILY Metoprolol Succinate (ER) [Toprol XL] 25 mg PO DAILY Lisinopril [Zestril] 2.5 mg PO DAILY Levothyroxine Sodium [Synthroid] 50 mcg PO DAILY Ketoconazole 2% Shampoo [Nizoral] 1 applic TOPICAL DIRECTED Aspirin [Adult Low Dose Aspirin EC] 81 mg PO DAILY Amino Acids/Protein Hydrolys [Pro-Stat Supplement] 30 ml PO BID Sertraline [Zoloft] 50 mg PO HS Ketoconazole 2% Shampoo [Nizoral] 1 applic TOPICAL DIRECTED Mylanta Susp 30 ml PO Q8HR PRN PRN Reason: Indigestion Discontinued HYDROcodone/APAP 7.5-325MG [Cyrus 7.5-325] 1 tab PO BID HYDROcodone/APAP 7.5-325MG [Cyrus 7.5-325] 1 tab PO Q4H PRN PRN Reason: Pain Discharge Medication List Acetaminophen Tab [Tylenol] 650 mg PO Q4H PRN 02/06/18 [History] Aspirin [Adult Low Dose Aspirin EC] 81 mg PO DAILY 02/06/18 [History] Ketoconazole 2% Shampoo [Nizoral] 1 applic TOPICAL DIRECTED 02/06/18 [History ] Levothyroxine Sodium [Synthroid] 50 mcg PO DAILY 02/06/18 [History] Lisinopril [Zestril] 2.5 mg PO DAILY 02/06/18 [History] Metoprolol Succinate (ER) [Toprol XL] 25 mg PO DAILY 02/06/18 [History] Omeprazole 20 mg PO DAILY 02/06/18 [History] Potassium Chloride ER [K-Dur 10] 10 meq PO BID 02/06/18 [History] Pravastatin Sodium [Pravachol] 20 mg PO HS 02/06/18 [History] Rivaroxaban [Xarelto] 15 mg PO HS 02/06/18 [History] Torsemide [Demadex] 40 mg PO BID 02/06/18 [History] Amino Acids/Protein Hydrolys [Pro-Stat Supplement] 30 ml PO BID 03/13/18 [ History] Ketoconazole 2% Shampoo [Nizoral] 1 applic TOPICAL DIRECTED 03/13/18 [History ] Mylanta Susp 30 ml PO Q8HR PRN 03/13/18 [History] Sertraline [Zoloft] 50 mg PO HS 03/13/18 [History] HYDROcodone/APAP 5-325MG [Cyrus 5-325] 1 each PO Q4HR PRN #18 tab 03/17/18 [Rx] Vancomycin HCl in 5 % Dextrose [Vancomycin 1 Gram/250 ml-D5w] 1,250 mg IV BID # 28 plast..bag 03/17/18 [Rx] cefTRIAXone [Rocephin] 2,000 mg IVP Q24HR #14 bag 03/17/18 [Rx] Follow up Appointment(s)/Referral(s): Chalino Allen MD [Primary Care Provider] - 3 Days Mal Jackson MD [STAFF PHYSICIAN] - 03/20/18 (in wound care clinic) Jhon Felix MD [STAFF PHYSICIAN] - 1 Week () Ambulatory/Diagnostic Orders: Basic Metabolic Panel [LAB.AMB] Location: Determined By Patient Vancomycin,Trough [LAB.AMB] Location: Determined By Patient Activity/Diet/Wound Care/Special Instructions: [facility] Antibx as per ID bilateral foot ulcer dressing change- cynthia mina kerlix DAILY cbc,bmp in 3 daYs Discharge Disposition: TRANSFER TO SNF/F
--- NOTE | 2018-03-21 12:03 | CDI ---
Last Revision, September 2017 Documentation Clarification Form Date: 03/21/2018 From: Paulina Pascual Phone: If you have a question, please contact Sallie Loya Computer Typesetter at [phone] between 8am and 5pm. Admit Date: 03/13/2018 5:47:00 PM Patient Name: Paco Whaley Visit Number: [id number] Discharge Date: 03/18/2018 ATTENTION: The Clinical Documentation Specialists (CDI) and [facility] Coding Staff appreciate your assistance in clarifying documentation. Please respond to the clarification below the line at the bottom and electronically sign. The CDI & [facility] Coding staff will review the response and follow-up if needed. Please note: Queries are made part of the Legal Health Record. If you have any questions, please contact the author of this message via ITS. Dr. Jennifer Jansen Bilateral LE foot ulcers and cellulitis MRSA Proteus mirabilis is documented in the DCS . Patient history/risk factors: Patient has PVD and venous insufficiency In your professional opinion, can the etiology be further specified as one of the following? Non-pressure chronic ulcer due to PVD Non-pressure chronic ulcer due to venous insufficiency Non-pressure chronic ulcer due to trauma Other, Please specify Unable to determine Non-pressure chronic ulcer due to venous insufficiency Jennifer Jansen MTDD
--- NOTE | 2018-03-23 08:07 | IR ---
EXAMINATION TYPE: IR cvc insert >=5 years DATE OF EXAM: 03/17/2018 COMPARISON: NONE CLINICAL HISTORY: Infection Needs long-term intravenous access for antibiotics. PROCEDURE: After informed consent, the skin overlying the upper extremity vein was localized with ultrasound and noted to be compressible and patent. An ultrasound image was obtained and submitted on the patient' s chart. The overlying skin was prepped and draped and Lidocaine was used for local anesthesia. A s kin trudy was made with a scalpel. Access was gained to the vein under ultrasound guidance with a 21 gauge needle and a 0.018 inch wire was advanced. Access site was dilated with Peel-Away sheath and c atheter tailored to the appropriate length and advanced such that the distal tip is at the cavoatrial junction. Spot image was obtained verifying placement. Catheter was fixed to the skin and a steril e dressing was placed following hemostasis. Catheter was aspirated and flushed with saline. Patient was discharged in stable condition without complication. Maximal barrier technique is utilized. Ult rasound image is documented on the chart. Ultrasound used with sterile technique. Fluoro time and fluoroscopic images submitted to document procedure: 0.7 minutes fluoroscopy time, 27 3 intraoperative images IMPRESSION: STATUS POST ULTRASOUND AND FLUOROSCOPIC GUIDED PICC LINE PLACEMENT, READY FOR USE. THIS PROCEDURE WAS PERFORMED BY THE UNDERSIGNED.
== END 2018-03-18 13:40 | DRG 593 ==
LOC: EC 15:01 → 4MS4W 17:47
PROVIDERS: ADMIT Internal Medicine; ATTEND Internal Medicine
PROC: 02H633Z Insertion of Infusion Device into Right Atrium, Percutaneous Approach (ICD-10-PCS; principal; 2018-03-17 17:00)
PROC: B214YZZ Fluoroscopy of Right Heart using Other Contrast (ICD-10-PCS; 2018-03-17 17:00)
DX: L97.519 Non-pressure chronic ulcer of other part of right foot with unspecified severity (principal); L03.115 Cellulitis of right lower limb; L03.116 Cellulitis of left lower limb; L97.529 Non-pressure chronic ulcer of other part of left foot with unspecified severity; E03.9 Hypothyroidism, unspecified; E78.5 Hyperlipidemia, unspecified; F03.90 Unspecified dementia, unspecified severity, without behavioral disturbance, psychotic disturbance, mood disturbance, and anxiety; F32.9 Major depressive disorder, single episode, unspecified; F41.9 Anxiety disorder, unspecified; F79 Unspecified intellectual disabilities; I10 Essential (primary) hypertension; I48.2 Chronic atrial fibrillation; K21.9 Gastro-esophageal reflux disease without esophagitis; R32 Unspecified urinary incontinence; Z79.01 Long term (current) use of anticoagulants; Z79.82 Long term (current) use of aspirin; Z79.899 Other long term (current) drug therapy; Z86.718 Personal history of other venous thrombosis and embolism; I87.2 Venous insufficiency (chronic) (peripheral)
CPT/HCPCS: 36415; 36569; 76937; 77001; 80048; 80053; 80202; 81001; 85025; 85610; 85730; 87040; 87070; 87077; 87186; 87205; 96365; 96366; 96375; 99215; 99284

== ENCOUNTER 2025-03-16 11:53 | Inpatient (IN) | payer MEDICARE, OTHER ==
--- NOTE | 2025-03-16 12:19 | ED ---
General Adult HPI - General Stated complaint: Chest Pain Time Seen by Provider: 03/16/25 11:55 Source: patient, RN notes reviewed Mode of arrival: EMS Limitations: altered mental status - History of Present Illness Initial comments: Patient is an 79-year-old male present to the emergency department with concerns with chest discomfort. Onset of symptoms was this morning. Symptoms have resolved and currently symptom-free. Patient denies associated dyspnea. Patient states it did hurt bad earlier. Patient states he normally likes Mountain Dew in the morning. Patient is a poor historian. - Related Data Home Medications Medication Instructions Recorded Confirmed Acetaminophen Tab [Tylenol Tab] 500 mg PO Q4H 04/17/18 11/27/18 Levothyroxine Sodium [Synthroid] 50 mcg PO DAILY 04/17/18 11/27/18 Loratadine [Claritin] 10 mg PO DAILY 04/17/18 11/27/18 Metoprolol Succinate (ER) [Toprol 25 mg PO DAILY 04/17/18 11/27/18 XL] Omeprazole [PriLOSEC] 20 mg PO DAILY 04/17/18 11/27/18 Potassium Chloride [K-Tab ER] 10 meq PO DAILY 04/17/18 11/27/18 Pravastatin Sodium [Pravachol] 20 mg PO HS 04/17/18 11/27/18 Rivaroxaban [Xarelto] 15 mg PO DAILY 04/17/18 11/27/18 Torsemide [Demadex] 40 mg PO DAILY 04/17/18 11/27/18 lisinopriL [Zestril] 2.5 mg PO DAILY 04/17/18 11/27/18 Sertraline [Zoloft] 25 mg PO DAILY 06/19/18 11/27/18 Allergies Allergy/AdvReac Type Severity Reaction Status Date / Time No Known Allergies Allergy Verified 11/27/18 17:00 Review of Systems ROS Statement: Those systems with pertinent positive or pertinent negative responses have been documented in the HPI. ROS Other: All systems not noted in ROS Statement are negative. Constitutional: Denies: fever Eyes: Denies: eye pain ENT: Denies: ear pain Respiratory: Denies: cough Cardiovascular: Reports: as per HPI, chest pain Gastrointestinal: Denies: abdominal pain Musculoskeletal: Denies: back pain Past Medical History Past Medical History: Atrial Fibrillation, Dementia, Deep Vein Thrombosis (DVT), GERD/Reflux, Hyperlipidemia, Hypertension, Vascular Disorder Additional Past Medical History / Comment(s): anemia, 02 2l/min per n/c prn for shortness of breath,hypothyroidism, frequent micturation, wound josemanuel feet dry skin dermatitis, per [facility] pt had a pne vaccine in past but not sure of date. pt uses walker with 1 assist and a w/c chaser.pt has intellectual disabilty-f staff stated pt able to read/write some .needs assist to set up food tray and over see. use short simple instructions History of Any Multi-Drug Resistant Organisms: MRSA Date of last positivie culture/infection: 07/31/18 MDRO Source:: LEFT FOOT Past Surgical History: Unable to Obtain Additional Past Surgical History / Comment(s): brandon filter Past Anesthesia/Blood Transfusion Reactions: Unable to Obtain Past Psychological History: Anxiety, Depression Additional Psychological History / Comment(s): developmentally delayed, mentally challenged, dementia Past Alcohol Use History: None Reported Past Drug Use History: None Reported - Past Family History Mother Family Medical History: Unable to Obtain Father Family Medical History: Unable to Obtain General Exam Limitations: no limitations General appearance: alert, in no apparent distress Head exam: Present: normocephalic Eye exam: Present: normal appearance Neck exam: Present: normal inspection Respiratory exam: Present: normal lung sounds bilaterally. Absent: chest wall tenderness Cardiovascular Exam: Present: regular rate, normal rhythm Expanded Peripheral pulses: 2+: Radial (R), Radial (L), Dorsalis Pedis (R), Dorsalis Pedis (L) GI/Abdominal exam: Present: soft. Absent: tenderness Extremities exam: Present: pedal edema (More right-sided). Absent: calf tenderness Neurological exam: Present: alert Psychiatric exam: Present: normal affect, normal mood Skin exam: Present: normal color Course Vital Signs 03/16/25 11:57 Temperature 100.2 F H Pulse Rate 60 Pulse Rate [ 60 Point Of Sale Associate ] Respiratory 20 Rate Blood Pressure 140/53 O2 Sat by Pulse 97 Oximetry EKG Findings - EKG Results: EKG: interpreted by ERMD (Paced rhythm with a rate of 60. Superior axis. Wide- complex QRS. Nonspecific ST-T.) Medical Decision Making - Medical Decision Making Was pt. sent in by a medical professional or institution (Dr., PA, ACCOUNTING TEACHER, urgent care, hospital, or residential...) When possible be specific @ -Patient sent from nursing facility Did you speak to anyone other than the patient for history (EMS, parent, family, police, friend...)? What history was obtained from this source @ -No Did you review nursing and triage notes (agree or disagree)? Why? @ -I reviewed and agree with nursing and triage notes Were old charts reviewed (outside hosp., previous admission, EMS record, old EKG, old radiological studies, urgent care reports/EKG's, residential records)? Report findings @ -Chart reviewed from nursing facility Differential Diagnosis (chest pain, altered mental status, abdominal pain women, abdominal pain men, vaginal bleeding, weakness, fever, dyspnea, syncope, headache, dizziness, GI bleed, back pain, seizure, CVA, palpatations, mental health, musculoskeletal)? @ -Differential Chest Pain: Stable Angina, Unstable Angina, STEMI, NSTEMI Aortic Dissection, Pneumothorax, Musculoskeletal, Esophageal Spasm GERD, Cholecystitis, Pancreatitis, Zoster, this is not meant to be an all-inclusive list. EKG interpreted by me (3pts min.). @ -As above X-rays interpreted by me (1pt min.). @ -Chest x-ray without acute abnormality, questionable edema CT interpreted by me (1pt min.). @ -None done U/S interpreted by me (1pt. min.). @ -None done What testing was considered but not performed or refused? (CT, X-rays, U/S, labs)? Why? @ -Ultrasound ordered and pending What meds were considered but not given or refused? Why? @ -None Did you discuss the management of the patient with other professionals (professionals i.e. JESENIA Plascencia, ACCOUNTING TEACHER, lab, RT, psych nurse, social staff worker, paint line production supervisor, teacher, sea air land officer, case management specialist)? Give summary @ -Case discussed with Dr. Ramirez who will admit covering Dr. Darden Was smoking cessation discussed for >3mins.? @ -No Was critical care preformed (if so, how long)? @ -No Were there social determinants of health that impacted care today? How? (Homelessness, low income, unemployed, alcoholism, drug addiction, transpor tation, low edu. Level, literacy, decrease access to med. care, detention, rehab)? @ -No Was there de-escalation of care discussed even if they declined (Discuss DNR or withdrawal of care, Hospice)? DNR status @ -No What co-morbidities impacted this encounter? (DM, HTN, Smoking, COPD, CAD, Cancer, CVA, ARF, Chemo, Hep., AIDS, mental health diagnosis, sleep apnea, morbid obesity)? @ -None Was patient admitted / discharged? Hospital course, mention meds given and route, prescriptions, significant lab abnormalities, going to OR and other pertinent info. @ -Patient presents with chest discomfort with associated dyspnea this morning. First troponin unremarkable. Patient will be admitted with cardiac consult. Admission orders written. Patient reevaluated Undiagnosed new problem with uncertain prognosis? @ -No Drug Therapy requiring intensive monitoring for toxicity (Heparin, Nitro, Insulin, Cardizem)? @ -No Were any procedures done? @ -No Diagnosis/symptom? @ -Chest pain Acute, or Chronic, or Acute on Chronic? @ -Acute Uncomplicated (without systemic symptoms) or Complicated (systemic symptoms)? @ -Default Side effects of treatment? @ -No Exacerbation, Progression, or Severe Exacerbation? @ -No Poses a threat to life or bodily function? How? (Chest pain, [place], [place], pneumonia, PE, COPD, DKA, ARF, appy, cholecystitis, CVA, Diverticulitis, Homicidal, Suicidal, threat to staff... and all critical care pts) @ -No - Lab Data Result diagrams: 03/16/25 12:46 03/16/25 12:46 Lab Results 03/16/25 03/16/25 03/16/25 Range/Units 12:46 12:46 12:46 WBC 18.80 H (4.50-10.00) 10*3/uL RBC 5.50 (4.40-5.60) 10*6/uL Hgb 12.3 L (13.0-17.0) g/dL Hct 41.0 (39.6-50.0) % MCV 74.5 L (80.0-97.0) fL MCH 22.4 L (27.0-32.0) pg MCHC 30.0 L (32.0-37.0) g/dL Plt Count 288 (140-440) 10*3/uL MPV 10.2 (9.5-12.2) fL Immature Gran % (Auto) 0.5 % Neutrophils % 88.2 % Lymphocytes % 5.2 % Monocytes % 4.8 % Eosinophils % 0.8 % Basophils % 0.5 % Immature Gran # 0.10 H (0.00-0.04) 10*3/uL Neutrophils # 16.58 H (1.80-7.70) 10*3/uL Lymphocytes # 0.97 (0.90-5.00) 10*3/uL Monocytes # 0.91 (0.20-1.00) 10*3/uL Eosinophils # 0.15 (0.04-0.35) 10*3/uL Basophils # 0.09 (0.00-0.10) 10*3/uL PT 11.3 (10.0-12.5) sec INR 1.0 (<1.2) APTT 23.2 (22.0-30.0) sec D-Dimer 0.46 (<0.60) mg/L FEU Sodium 142 (137-145) mmol/L Potassium 4.2 (3.5-5.1) mmol/L Chloride 105 (98-107) mmol/L Carbon Dioxide 24 (22-30) mmol/L Anion Gap 13 mmol/L BUN 29 H (9-20) mg/dL Creatinine 1.14 (0.66-1.25) mg/dL Est GFR (CKD-EPI)AfAm 70 (>60 ml/min/1.73 sqM) Est GFR (CKD-EPI)NonAf 60 (>60 ml/min/1.73 sqM) Glucose 78 (74-99) mg/dL Calcium 8.8 (8.4-10.2) mg/dL Magnesium 2.0 (1.6-2.3) mg/dL Total Bilirubin 0.8 (0.2-1.3) mg/dL AST 40 (17-59) U/L ALT 30 (4-49) U/L Alkaline Phosphatase 109 (38-126) U/L Troponin I (0.000-0.034) ng/mL NT-Pro-B Natriuret Pep pg/mL Total Protein 8.0 (6.3-8.2) g/dL Albumin 4.4 (3.5-5.0) g/dL 03/16/25 03/16/25 Range/Units 12:46 12:46 WBC (4.50-10.00) 10*3/uL RBC (4.40-5.60) 10*6/uL Hgb (13.0-17.0) g/dL Hct (39.6-50.0) % MCV (80.0-97.0) fL MCH (27.0-32.0) pg MCHC (32.0-37.0) g/dL Plt Count (140-440) 10*3/uL MPV (9.5-12.2) fL Immature Gran % (Auto) % Neutrophils % % Lymphocytes % % Monocytes % % Eosinophils % % Basophils % % Immature Gran # (0.00-0.04) 10*3/uL Neutrophils # (1.80-7.70) 10*3/uL Lymphocytes # (0.90-5.00) 10*3/uL Monocytes # (0.20-1.00) 10*3/uL Eosinophils # (0.04-0.35) 10*3/uL Basophils # (0.00-0.10) 10*3/uL PT (10.0-12.5) sec INR (<1.2) APTT (22.0-30.0) sec D-Dimer (<0.60) mg/L FEU Sodium (137-145) mmol/L Potassium (3.5-5.1) mmol/L Chloride (98-107) mmol/L Carbon Dioxide (22-30) mmol/L Anion Gap mmol/L BUN (9-20) mg/dL Creatinine (0.66-1.25) mg/dL Est GFR (CKD-EPI)AfAm (>60 ml/min/1.73 sqM) Est GFR (CKD-EPI)NonAf (>60 ml/min/1.73 sqM) Glucose (74-99) mg/dL Calcium (8.4-10.2) mg/dL Magnesium (1.6-2.3) mg/dL Total Bilirubin (0.2-1.3) mg/dL AST (17-59) U/L ALT (4-49) U/L Alkaline Phosphatase (38-126) U/L Troponin I 0.015 (0.000-0.034) ng/mL NT-Pro-B Natriuret Pep 910 pg/mL Total Protein (6.3-8.2) g/dL Albumin (3.5-5.0) g/dL Disposition Clinical Impression: Chest pain Disposition: ADMITTED IP TO THIS HOSP Condition: Stable Is patient prescribed a controlled substance at d/c from ED?: No Referrals: Americo Darden MD [Primary Care Provider] - 1-2 days Time of Disposition: 14:21
[2025-03-16] MEDS: ASPIRIN 81 MG PO STA (12:38)
[2025-03-16 13:02] LABS: Basophils # (A) 0.09 10*3/uL (0.00-0.10); Basophils % (A) 0.5 %; Eosinophils # (A) 0.15 10*3/uL (0.04-0.35); Eosinophils % (A) 0.8 %; HGB 12.3 g/dL (13.0-17.0); Lymphocytes # (A) 0.97 10*3/uL (0.90-5.00); Lymphocytes % (A) 5.2 %; MCH 22.4 pg (27.0-32.0); MCV 74.5 fL (80.0-97.0); Mean Platelet Volume 10.2 fL (9.5-12.2); Monocytes # (A) 0.91 10*3/uL (0.20-1.00); Monocytes % (A) 4.8 %; Neutrophils # (A) 16.58 10*3/uL (1.80-7.70); Neutrophils % (A) 88.2 %; Platelet Count 288 10*3/uL (140-440); RDW 18.6 % (11.5-14.5)
--- NOTE | 2025-03-16 13:13 | XR ---
EXAMINATION TYPE: XR chest 2V DATE OF EXAM: 03/16/2025 12:58 PM COMPARISON: None CLINICAL INDICATION: Male, 79 years old with history of Chest Pain; [facility] TECHNIQUE: XR chest 2V Frontal and lateral views of the chest. FINDINGS: Lungs/Pleura: There is no evidence of pleural effusion, focal consolidation, or pneumothorax. Pulmonary vascularity: Pulmonary vascular congestion. Heart/mediastinum: Cardiomediastinal silhouette is enlarged. Three lead cardiac conduction device ove rlying the left hemithorax with lead tips projecting over the right ventricle, right atrium and coron samina sinus. Musculoskeletal: No acute osseous pathology. Other findings: None IMPRESSION: Cardiomegaly and mild pulmonary vascular congestion. Correlate with BNP for congestive heart failure. [facility], , 03/16/2025 1:11 PM
[2025-03-16 13:14] LABS: ALT 30 U/L (4-49); AST 40 U/L (17-59); African American GFR (CKD) 70 (>60 ml/min/1.73 sqM); Albumin 4.4 g/dL (3.5-5.0); Alkaline Phosphatase 109 U/L (38-126); Anion Gap 13 mmol/L; Blood Urea Nitrogen 29 mg/dL (9-20); Calcium 8.8 mg/dL (8.4-10.2); Carbon Dioxide 24 mmol/L (22-30); Chloride 105 mmol/L (98-107); Glucose 78 mg/dL (74-99); Non-African American GFR(CKD) 60 (>60 ml/min/1.73 sqM); Potassium 4.2 mmol/L (3.5-5.1); Sodium 142 mmol/L (137-145); Total Bilirubin 0.8 mg/dL (0.2-1.3)
[2025-03-16 13:18] LABS: Partial Thromboplastin Time 23.2 sec (22.0-30.0); Prothrombin Time 11.3 sec (10.0-12.5)
[2025-03-16] MEDS ORDERED: NITROGLYCERIN SL TABS 0.4 MG TAB SUBLINGUAL PRN (14:21)
--- NOTE | 2025-03-16 14:32 | US ---
EXAMINATION TYPE: US venous doppler duplex LE RT DATE OF EXAM: 03/16/2025 2:07 PM COMPARISON: NONE CLINICAL INDICATION: Male, 79 years old with history of pain, edema; Right leg pain, Pain TECHNIQUE: The lower extremity deep venous system is examined utilizing real time linear array sonog katy with graded compression, color doppler sonography, and spectral doppler. SIDE PERFORMED: right FINDINGS: VESSELS IMAGED: Common Femoral Vein Deep Femoral Vein Greater Saphenous Vein * Femoral Vein Popliteal Vein Small Saphenous Vein * Proximal Calf Veins (* superficial vessels) *Limitations due to patient's body habitus Right Leg: No evidence of DVT as visualized. Lymph nodes right groin, largest = 1.4 x 1.6 x 1.9cm, C olor Doppler imaging shows patency of the vessels. Spectral waveforms are within normal limits. IMPRESSION: 1. No ultrasound evidence for deep venous thrombosis. 2. Prominent right groin lymph nodes. [facility], , 03/16/2025 2:30 PM
[2025-03-16 15:09] LABS: Appearance,Urine Cloudy (Clear); Bacteria,Urine Occasional /hpf; Bilirubin,Urine Negative (Negative); Blood,Urine Trace (Negative); Budding Yeast,Urine Few /hpf; Color,Urine Colorless; Glucose,Urine (UA) 3+ (Negative); Ketones,Urine Negative (Negative); Leukocyte Esterase,Urine Large (Negative); Nitrite,Urine Positive (Negative); Protein,Urine Negative (Negative); RBC,Urine 4 /hpf (0-5); Specific Gravity,Urine 1.011 (1.001-1.035); Urobilinogen,Urine <2.0 mg/dL (<2.0); WBC,Urine >182 /hpf (0-5)
--- NOTE | 2025-03-16 15:42 | XR ---
EXAMINATION TYPE: XR tibia fibula RT DATE OF EXAM: 03/16/2025 3:19 PM COMPARISON: None CLINICAL INDICATION: Male, 79 years old with history of wound, pain TECHNIQUE: XR tibia fibula RT; examined in AP and lateral projections. FINDINGS: No evidence of any acute osseous pathology, joint dislocation, or soft tissue swelling is n oted. No evidence for osseous erosion. No radiopaque foreign body. Calcaneal plantar spurring. Athero sclerosis of the arterial vasculature. Well-corticated benign-appearing calcified lesion between the tibia and fibula. IMPRESSION: 1. No evidence of acute fracture. 2. No evidence for osseous erosion or subcutaneous gas. [facility], , 03/16/2025 3:40 PM
--- NOTE | 2025-03-16 15:44 | XR ---
EXAMINATION TYPE: XR foot complete RT DATE OF EXAM: 03/16/2025 3:19 PM COMPARISON: 03/13/2018. CLINICAL INDICATION: Male, 79 years old with history of wound; [facility], pain TECHNIQUE: XR foot complete RT examined in the AP, oblique, and lateral projections. FINDINGS: No evidence of any acute osseous pathology. Soft tissue swelling present. Dorsal foot soft tissue wo und no evidence for osseous erosion. No subcutaneous gas identified. Multifocal degeneration changes throughout the joints of the foot with osteophyte formation and joint space narrowing. Incidental no te is made of symphalangism of the fifth distal interphalangeal joint. IMPRESSION: 1. Soft tissue swelling with Dorsal foot soft tissue wound no evidence for osseous erosion. No subc utaneous gas visualized. 2. No evidence of acute fracture. 3. Multifocal degeneration changes throughout the joints of the foot. [facility], , 03/16/2025 3:41 PM
[2025-03-16] MEDS ORDERED: VANCOMYCIN IV PER PHARMACY 1 EACH MISC MISCELLANE PRN (18:03)
[2025-03-16] MEDS: ACETAMINOPHEN TAB 325 MG TAB PO PRN (18:10)
[2025-03-16] MEDS: IBUPROFEN 400 MG TAB PO PRN (18:10)
[2025-03-16] MEDS: VANCOMYCIN 1,500 MG in SODIUM CHLORIDE 0.9% 500 ML 500 ML IVPB ONE (19:54)
[2025-03-16] MEDS ORDERED: HEPARIN SODIUM 1,000 UN/ML (10ML VL) IV PRN (20:59)
[2025-03-16] MEDS ORDERED: ENOXAPARIN 100 MG/ML SYRINGE SQ SCH (21:00)
--- NOTE | 2025-03-16 21:03 | P.HPIM ---
History of Present Illness This is a pleasant 79 years old male who was sent from assisted for possible chest pain Patient admitted from ER for chest pain when I saw the patient he was awake alert calm however he looks confused and poor historian. He did not complain to me from chest pain actually could not provide information However his right leg looks swollen red and tender and there is superficial ulcer on the dorsum of the right foot with dressing in place and some purulent discharge On admission he had a fever of 103. Labs showed leukocytosis of 18,000, hemoglobin 12.3, BMP and LFT were unremarkable. Urinalysis suspicious for infection and UTI X-ray of the right foot and right leg showing soft tissue swelling of the right foot and ulcer on the dorsum of the right foot. No evidence of fracture or gas border in the leg or right foot Ultrasound of the right leg is negative for DVT but showing right groin lymphadenopathy Chest x-ray reported as cardiomegaly with mild pulmonary vascular congestion D-dimer is negative at 0.46. Troponin negative times two 0.015 and 0.03, third 1 came back mildly positive at 0.043. Review of Systems Review of systems CONSTITUTIONAL: No fever, no malaise, no fatigue. HEENT: No recent visual problems or hearing problems. Denied any sore throat. CARDIOVASCULAR: No orthopnea, PND, no palpitations, no syncope. PULMONARY: No shortness of breath, no cough, no hemoptysis. GASTROINTESTINAL: No diarrhea, no nausea, no vomiting, no abdominal pain. Normoactive bowel sounds. NEUROLOGICAL: No headaches, no weakness, no numbness. HEMATOLOGICAL: Denies any bleeding or petechiae. GENITOURINARY: Denies any burning micturition, frequency, or urgency. MUSCULOSKELETAL/RHEUMATOLOGICAL: Denies any joint pain, swelling, or any muscle pain. ENDOCRINE: Denies any polyuria or polydipsia. Past Medical History Past Medical History: Atrial Fibrillation, Dementia, Deep Vein Thrombosis (DVT), GERD/Reflux, Hyperlipidemia, Hypertension, Vascular Disorder Additional Past Medical History / Comment(s): anemia, 02 2l/min per n/c prn for shortness of breath,hypothyroidism, frequent micturation, wound josemanuel feet dry skin dermatitis, per [facility] pt had a pne vaccine in past but not sure of date. pt uses walker with 1 assist and a w/c chaser.pt has intellectual disabilty-ecf staff stated pt able to read/write some .needs assist to set up food tray and over see. use short simple instructions History of Any Multi-Drug Resistant Organisms: MRSA Date of last positivie culture/infection: 07/31/18 MDRO Source:: LEFT FOOT Past Surgical History: Unable to Obtain Additional Past Surgical History / Comment(s): brandon filter Past Anesthesia/Blood Transfusion Reactions: Unable to Obtain Past Psychological History: Anxiety, Depression Additional Psychological History / Comment(s): developmentally delayed, mentally challenged, dementia Past Alcohol Use History: None Reported Past Drug Use History: None Reported - Past Family History Mother Family Medical History: Unable to Obtain Father Family Medical History: Unable to Obtain Medications and Allergies Home Medications Medication Instructions Recorded Confirmed Type Levothyroxine Sodium [Synthroid] 50 mcg PO DAILY 04/17/18 03/16/25 History Potassium Chloride [K-Tab ER] 10 meq PO DAILY 04/17/18 03/16/25 History Torsemide [Demadex] 20 mg PO DAILY 04/17/18 03/16/25 History Sertraline [Zoloft] 25 mg PO DAILY 06/19/18 03/16/25 History Acetaminophen [Tylenol Arthritis] 650 mg PO Q6H PRN 03/16/25 03/16/25 History Apixaban [Eliquis] 5 mg PO BID 03/16/25 03/16/25 History Aspirin EC [Ecotrin Low Dose] 81 mg PO DAILY 03/16/25 03/16/25 History Empagliflozin [Jardiance] 10 mg PO DAILY 03/16/25 03/16/25 History Esomeprazole Magnesium [NexIUM] 20 mg PO DAILY 03/16/25 03/16/25 History Miconazole 2% Powder 1 applic TOPICAL BID 03/16/25 03/16/25 History Multivit-Min/FA/Lycopen/Lutein 1 tab PO DAILY 03/16/25 03/16/25 History [Centrum Silver Tablet] amLODIPine [Norvasc] 5 mg PO DAILY 03/16/25 03/16/25 History carvediloL [Coreg] 6.25 mg PO BID 03/16/25 03/16/25 History Allergies Allergy/AdvReac Type Severity Reaction Status Date / Time No Known Allergies Allergy Verified 03/16/25 17:54 Physical Exam Vitals: Vital Signs Temp Pulse Pulse Resp BP Pulse Ox 03/16/25 14:17 60 20 138/53 96 03/16/25 11:57 100.2 F H 60 60 20 140/53 97 Intake and Output 03/16/25 03/16/25 03/16/25 06:59 14:59 22:59 Other: Weight 104.326 kg -GENERAL: The patient is awake but confused, not in any acute distress. Well developed, well nourished. Obese HEENT: Pupils are round and equally reacting to light. EOMI. No scleral icterus. No conjunctival pallor. Normocephalic, atraumatic. No pharyngeal erythema. No thyromegaly. CARDIOVASCULAR: S1 and S2 present. No murmurs, rubs, or gallops. PULMONARY: Chest is clear to auscultation, no wheezing , no crackles. ABDOMEN: Soft, nontender, nondistended, normoactive bowel sounds. No palpable organomegaly. MUSCULOSKELETAL: No joint swelling or deformity. -EXTREMITIES: No cyanosis, clubbing, or pedal edema. Right leg and foot is red warm and tender and there is ulcer with mild purulent discharge on the dorsum of the right foot NEUROLOGICAL: Gross neurological examination did not reveal any focal deficits. SKIN: No rashes. no petechiae. Results CBC & Chem 7: 03/16/25 12:46 03/16/25 12:46 Labs: Abnormal Lab Results - Last 24 Hours (Table) 03/16/25 03/16/25 Range/Units 12:46 12:46 WBC 18.80 H (4.50-10.00) 10*3/uL Hgb 12.3 L (13.0-17.0) g/dL MCV 74.5 L (80.0-97.0) fL MCH 22.4 L (27.0-32.0) pg MCHC 30.0 L (32.0-37.0) g/dL Immature Gran # 0.10 H (0.00-0.04) 10*3/uL Neutrophils # 16.58 H (1.80-7.70) 10*3/uL BUN 29 H (9-20) mg/dL Assessment and Plan Assessment: Chest pain with mildly elevated troponin, could be related to infection and other medical problems, rule out non-STEMI Sepsis with fever and leukocytosis Right foot and leg cellulitis with infected wound on the dorsum of the right foot Hypothyroidism Paroxysmal atrial fibrillation Dementia Hypertension Hyperlipidemia Chronic anemia Chronic hypoxic respiratory failure Plan: Continue with IV vancomycin methotrexate Start normal sinus 75 mm/h Hold Eliquis and start heparin drip x 48 hours Continue with Coreg and torsemide Hold Norvasc and Jardiance Cardiology consult Infectious disease consult Follow-up culture results Labs and medication were reviewed.. Continue same treatment. Continue with symptomatic treatment. Resume home medication. Monitor labs and vitals. DVT and GI prophylaxis. Further recommendations as per clinical course of the patient DVT prophylaxis: Subcutaneous heparin GI Prophylaxis: P Protonix Prognosis is guarded
[2025-03-16 21:55] LABS: HCT 36.4 % (39.6-50.0); HGB 11.2 g/dL (13.0-17.0); MCH 22.6 pg (27.0-32.0); MCHC 30.8 g/dL (32.0-37.0); MCV 73.4 fL (80.0-97.0); Mean Platelet Volume 10.5 fL (9.5-12.2); Platelet Count 251 10*3/uL (140-440); RBC 4.96 10*6/uL (4.40-5.60); RDW 17.9 % (11.5-14.5); WBC 30.18 10*3/uL (4.50-10.00)
[2025-03-16 22:03] LABS: INR 1.1 (<1.2); Partial Thromboplastin Time 24.6 sec (22.0-30.0); Prothrombin Time 12.1 sec (10.0-12.5)
[2025-03-16] MEDS: HEPARIN SOD,PORK IN 0.45% NACL 25,000 UNIT in 0.45% NACL 1 250ML.BAG IV SCH (22:35)
[2025-03-16] MEDS: HEPARIN SODIUM 1,000 UN/ML (10ML VL) IV ONE (22:36)
[2025-03-16] MEDS: SODIUM CHLORIDE 0.9% 1,000 ML IV SCH (22:38)
[2025-03-16] MEDS: carvediloL 6.25 MG TAB PO SCH (22:38)
[2025-03-17 01:02] LABS: Band Neutrophils % 25 %; Monocytes # (M) 0.91 k/uL (0-1.0); Neutrophils # (M) 28.67 k/uL (1.3-7.7); Neutrophils % (M) 70 %; Nucleated Red Blood Cells 0 /100 WBC (0-0); Total Cells Counted 100
[2025-03-17] MEDS: LEVOTHYROXINE 50 MCG TAB PO SCH (06:13)
[2025-03-17] MEDS: VANCOMYCIN 1,500 MG in SODIUM CHLORIDE 0.9% 500 ML 500 ML IVPB SCH (08:57)
[2025-03-17] MEDS: TORSEMIDE 20 MG TAB PO SCH (08:59)
--- NOTE | 2025-03-17 10:05 | P.CONS ---
History of Present Illness - Reason for Consult Consult date: 03/16/25 Cellulitis Requesting physician: Amrik E Sheet - Chief Complaint Chest pain x 1 day - History of Present Illness Patient is a 59-year-old male with a past medical history significant forAtrial Fibrillation, Dementia, Deep Vein Thrombosis (DVT), GERD/Reflux, Hype rlipidemia, Hypertension, Vascular Disorder, Augmentin be changed, dementia [facility] resident patient has been sent to the concerning for chest discomfort that have been started the day of presentation to the hospital on arrival to the ER patient denied any chest pain to the ER physician or any shortness of breath during workup patient was noticed to have a right foot wound right lower extremity swelling and redness concerning for cellulitis prompting this consultation on presentation to the hospital patient did have a fever of 100.2 F subsequently spiked a temperature of 103.1 F patient was not tachycardic hypotensive or hypoxic no need for supplemental oxygen patient did have a white count of 30,000 with a left shift creatinine is 1.14 electrolytes are normal liver enzymes are normal troponin is elevated urine is positive patient did have a chest x-ray cardiomegaly mild pulmonary vascular congestion concerning for CHF venous Doppler right leg no DVT there was a enlarged lymph n ode in the right groin foot x-ray soft tissue swelling with the dorsal foot soft tissue wound no evidence of bony erosion no evidence of acute fracture patient has been admitted to the hospital infectious disease was consulted for further management of antibiotic therapy, most information has been obtained from review the chart as the patient was evaluated good historian cannot provide reliable hi story Review of Systems Positive points has been mentioned in HPI complete review could not be obtained because of his underlying mental status Past Medical History Past Medical History: Atrial Fibrillation, Dementia, Deep Vein Thrombosis (DVT), GERD/Reflux, Hyperlipidemia, Hypertension, Vascular Disorder Additional Past Medical History / Comment(s): anemia, 02 2l/min per n/c prn for shortness of breath,hypothyroidism, frequent micturation, wound josemanuel feet dry skin dermatitis, per [facility] pt had a pne vaccine in past but not sure of date. pt uses walker with 1 assist and a w/c chaser.pt has intellectual disabilty-f staff stated pt able to read/write some .needs assist to set up food tray and over see. use short simple instructions History of Any Multi-Drug Resistant Organisms: MRSA Year Discovered:: 10/29/18 MDRO Source:: LEFT FOOT Past Surgical History: Unable to Obtain Additional Past Surgical History / Comment(s): brandon filter Past Anesthesia/Blood Transfusion Reactions: Unable to Obtain Past Psychological History: Anxiety, Depression Additional Psychological History / Comment(s): developmentally delayed, mentally challenged, dementia Past Alcohol Use History: None Reported Past Drug Use History: None Reported - Past Family History Mother Family Medical History: Unable to Obtain Father Family Medical History: Unable to Obtain Medications and Allergies Home Medications Medication Instructions Recorded Confirmed Type Levothyroxine Sodium [Synthroid] 50 mcg PO DAILY 04/17/18 03/16/25 History Potassium Chloride [K-Tab ER] 10 meq PO DAILY 04/17/18 03/16/25 History Torsemide [Demadex] 20 mg PO DAILY 04/17/18 03/16/25 History Sertraline [Zoloft] 25 mg PO DAILY 06/19/18 03/16/25 History Acetaminophen [Tylenol Arthritis] 650 mg PO Q6H PRN 03/16/25 03/16/25 History Apixaban [Eliquis] 5 mg PO BID 03/16/25 03/16/25 History Aspirin EC [Ecotrin Low Dose] 81 mg PO DAILY 03/16/25 03/16/25 History Empagliflozin [Jardiance] 10 mg PO DAILY 03/16/25 03/16/25 History Esomeprazole Magnesium [NexIUM] 20 mg PO DAILY 03/16/25 03/16/25 History Miconazole 2% Powder 1 applic TOPICAL BID 03/16/25 03/16/25 History Multivit-Min/FA/Lycopen/Lutein 1 tab PO DAILY 03/16/25 03/16/25 History [Centrum Silver Tablet] amLODIPine [Norvasc] 5 mg PO DAILY 03/16/25 03/16/25 History carvediloL [Coreg] 6.25 mg PO BID 03/16/25 03/16/25 History Allergies Allergy/AdvReac Type Severity Reaction Status Date / Time No Known Allergies Allergy Verified 03/16/25 17:54 Physical Exam Vitals: Vital Signs Temp Pulse Pulse Resp BP Pulse Ox 03/16/25 14:17 60 20 138/53 96 03/16/25 11:57 100.2 F H 60 60 20 140/53 97 Intake and Output 03/16/25 03/16/25 03/16/25 06:59 14:59 22:59 Other: Weight 104.326 kg GENERAL DESCRIPTION: Elderly male lying in bed, no distress. No tachypnea or accessory muscle of respiration use. HEENT: Shows Pallor , no scleral icterus. Oral mucous membrane is dry. NECK: Trachea central, no thyromegaly. LUNGS: Unlabored breathing. Decreased breath sound at the base HEART: S1, S2, regular rate and rhythm. ABDOMEN: Soft, no tenderness , guarding or rigidity, no organomegaly EXTREMITIES: Right foot did have a superficial ulcer with surrounding redness that is spreading to the mid of the right lower leg no foul-smelling drainage was noticed SKIN: No rash, no masses palpable. NEUROLOGICAL: The patient is lethargic though arousable orientation could not be determined Results CBC & Chem 7: 03/16/25 21:42 03/16/25 12:46 Labs: Abnormal Lab Results - Last 24 Hours (Table) 03/16/25 03/16/25 03/16/25 Range/Units 12:46 12:46 14:51 WBC 18.80 H (4.50-10.00) 10*3/uL Hgb 12.3 L (13.0-17.0) g/dL MCV 74.5 L (80.0-97.0) fL MCH 22.4 L (27.0-32.0) pg MCHC 30.0 L (32.0-37.0) g/dL Immature Gran # 0.10 H (0.00-0.04) 10*3/uL Neutrophils # 16.58 H (1.80-7.70) 10*3/uL BUN 29 H (9-20) mg/dL Urine Glucose (UA) 3+ H (Negative) Urine Blood Trace H (Negative) Ur Leukocyte Esterase Large H (Negative) Urine WBC >182 H (0-5) /hpf Urine WBC Clumps Moderate H (None) /hpf Urine Bacteria Occasional H (None) /hpf Urine Yeast (Budding) Few H (None) /hpf Assessment and Plan (1) Sepsis Current Visit: Yes Status: Acute Code(s): A41.9 - SEPSIS, UNSPECIFIED ORGANISM SNOMED Code(s): 48982005 (2) Cellulitis of right leg Current Visit: Yes Status: Acute Code(s): L03.115 - CELLULITIS OF RIGHT LOWER LIMB SNOMED Code(s): 63381083819599265 (3) UTI (urinary tract infection) Current Visit: Yes Status: Acute Code(s): N39.0 - URINARY TRACT INFECTION, SITE NOT SPECIFIED SNOMED Code(s): 43731319 Plan: 1patient presented to hospital with sepsis in this patient who did have a fever elevated white count meeting criteria for the SIRS/sepsis source is the right foot wound with secondary cellulitis of the right lower extremity patient also have significantly positive UA with mental status changes a component of UTI not entirely excluded. Keeping in mind patient is a [facility] resident will need to cover for the MRSA 2patient will be started on vancomycin pharmacy to dose and Rocephin while waiting for the culture to finalize. 3mark area of the redness to the right lower extremity. We will follow on clinical condition and cultures to further adjust medication if needed Thank you for this consultation we will follow the patient along with you Dictation was produced using [employer] dictation software. please excuse any gramm atical, word or spelling errors. Time with Patient: Greater than 30
[2025-03-17] MEDS: SERTRALINE 25 MG TAB PO SCH (10:29)
[2025-03-17] MEDS: ASPIRIN 325 MG TAB PO SCH (10:29)
[2025-03-17] MEDS: SODIUM CHLORIDE 0.9% 500 ML 500 ML IV ONE (10:30)
[2025-03-17 10:32] LABS: VLDL Calculation 9.86 mg/dL (5.00-40.00)
[2025-03-17 11:04] LABS: Basophils # (A) 0.09 X 10*3/uL (0.00-0.10); Basophils % (A) 0.3 %; Eosinophils # (A) 0.01 X 10*3/uL (0.04-0.35); Eosinophils % (A) 0 %; HCT 37.1 % (39.6-50.0); HGB 10.9 g/dL (13.0-17.0); Lymphocytes # (A) 0.42 X 10*3/uL (0.90-5.00); Lymphocytes % (A) 1.6 %; MCHC 29.4 g/dL (32.0-37.0); MCV 74.9 FL (80.0-97.0); Monocytes # (A) 0.49 X 10*3/uL (0.20-1.00); Monocytes % (A) 1.9 %; NRBC Per 100 WBC 0 X 10*3/uL (0.00-0.01); Neutrophils # (A) 24.18 X 10*3/uL (1.80-7.70); Platelet Count 233 X 10*3/uL (140-440); RBC 4.95 X 10*6/uL (4.40-5.60); RDW 18.2 % (11.5-14.5); WBC 25.75 X 10*3/uL (4.50-10.00)
[2025-03-17 11:08] LABS: BUN/Creat Ratio 17.91 Ratio (12.00-20.00); Blood Urea Nitrogen 41.2 mg/dL (9.0-27.0); Calcium 7.6 mg/dL (8.7-10.3); Carbon Dioxide 17.1 mmol/L (21.6-31.8); Chloride 102 mmol/L (96-109); Chol/HDL Ratio 2.74 Ratio; Glucose 107 mg/dL (70-110); LDL Cholesterol,Calculated 61.9 mg/dL (0.0-131.0); Potassium 4.1 mmol/L (3.5-5.5); Sodium 137 mmol/L (135-145)
--- NOTE | 2025-03-17 12:42 | P.CRDCN ---
History of Present Illness Consult date: 03/17/25 Consult reason: chest pain History of present illness: This is an 79-year-old male patient does not follow with a registered dental assistant rda. He has a past medical history of atrial fibrillation, pacemaker implantation, hypertension, hypothyroidism. [facility] that had resolved by the time he arrived to the ER. Patient is unable to provide any history. His baseline mentation is oriented to 1. He is being treated for acute urinary tract infection and cellulitis of the right lower extremity. Patient denies chest pain, chest pressure. He denies shortness of breath. Blood pressure 90/50, heart rate 60, pulse ox 96% on room air. Patient has been started on high intensity heparin drip. -EKG: Ventricularly paced rhythm. -Chest x-ray: Cardiomegaly with mild pulmonary vascular congestion. -Venous duplex of the right lower extremity negative for DVT. -Laboratory studies: WBC 25.7, hemoglobin 10.9. D-dimer 0.46. BUN 41, creatinine initially 1.1 is now 2.3. Troponins 0.015, 0.03, 0.043. Triglycerid es 49, cholesterol 113, LDL 61. Urinalysis positive for UTI. -Home cardiac medications: Amlodipine 5 mg daily, Eliquis 5 mg twice daily, Coreg 6.25 mg twice daily, Jardiance 10 mg daily, torsemide 20 mg daily, also on levothyroxine. - Review Of Systems: At the time of my exam: CONSTITUTIONAL: Denies fever or chills. HEENT: Denies blurred vision, vision changes, or eye pain. Denies hemoptysis CARDIOVASCULAR: Denies chest pain. Denies orthopnea. Denies PND. Denies palpitations RESPIRATORY: Denies shortness of breath. GASTROINTESTINAL: Denies abdominal pain. Denies nausea or vomiting. HEMATOLOGIC: Denies bleeding disorders. GENITOURINARY: Denies any blood in urine. SKIN: Denies puritis. Denies rash. Physical examination: Gen: This is an 79-year-old male in no acute distress VS: reviewed HEENT: Head is atraumatic, normocephalic. Pupils equal, round. Sclerae is anicteric. NECK: Supple. No JVD. LUNGS: Clear to auscultation. No wheezes or rhonchi. No intercostal retractions. HEART: Regular rate and rhythm. No murmur. ABDOMEN: Soft No tenderness. EXTREMITIES: No pedal edema. No calf tenderness. NEUROLOGICAL: Patient is awake, alert to person only which is his baseline. Assessment: UTI Cellulitis of the right lower extremity Sepsis Atypical chest pain, acute coronary syndrome ruled out Elevated troponin secondary to acute kidney injury Acute NM has been ruled out Acute kidney injury Chronic atrial fibrillation on Eliquis Pacemaker implantation Hypertension Hypothyroidism [facility] Plan: Resume patient's home cardiac medications Discontinue heparin drip and start patient on subcu heparin Obtain 2-D echocardiogram and Doppler study to assess cardiac structure and function No plan for further cardiac workup if the echocardiogram is unremarkable Thank you kindly for this consultation. Nurse practitioner note has been reviewed, I agree with documented findings and plan of care. Patient was seen and examined. Past Medical History Past Medical History: Atrial Fibrillation, Dementia, Deep Vein Thrombosis (DVT), GERD/Reflux, Hyperlipidemia, Hypertension, Vascular Disorder Additional Past Medical History / Comment(s): anemia, 02 2l/min per n/c prn for shortness of breath,hypothyroidism, frequent micturation, wound josemanuel feet dry skin dermatitis, per [facility] pt had a pne vaccine in past but not sure of date. pt uses walker with 1 assist and a w/c chaser.pt has intellectual disabilty-[facility] staff stated pt able to read/write some .needs assist to set up food tray and over see. use short simple instructions History of Any Multi-Drug Resistant Organisms: MRSA Date of last positivie culture/infection: 07/31/18 MDRO Source:: LEFT FOOT Past Surgical History: Unable to Obtain Additional Past Surgical History / Comment(s): brandon filter Past Anesthesia/Blood Transfusion Reactions: Unable to Obtain Past Psychological History: Anxiety, Depression Additional Psychological History / Comment(s): developmentally delayed, mentally challenged, dementia Past Alcohol Use History: None Reported Past Drug Use History: None Reported - Past Family History Mother Family Medical History: Unable to Obtain Father Family Medical History: Unable to Obtain Medications and Allergies Home Medications Medication Instructions Recorded Confirmed Type Levothyroxine Sodium [Synthroid] 50 mcg PO DAILY 04/17/18 03/16/25 History Potassium Chloride [K-Tab ER] 10 meq PO DAILY 04/17/18 03/16/25 History Torsemide [Demadex] 20 mg PO DAILY 04/17/18 03/16/25 History Sertraline [Zoloft] 25 mg PO DAILY 06/19/18 03/16/25 History Acetaminophen [Tylenol Arthritis] 650 mg PO Q6H PRN 03/16/25 03/16/25 History Apixaban [Eliquis] 5 mg PO BID 03/16/25 03/16/25 History Aspirin EC [Ecotrin Low Dose] 81 mg PO DAILY 03/16/25 03/16/25 History Empagliflozin [Jardiance] 10 mg PO DAILY 03/16/25 03/16/25 History Esomeprazole Magnesium [NexIUM] 20 mg PO DAILY 03/16/25 03/16/25 History Miconazole 2% Powder 1 applic TOPICAL BID 03/16/25 03/16/25 History Multivit-Min/FA/Lycopen/Lutein 1 tab PO DAILY 03/16/25 03/16/25 History [Centrum Silver Tablet] amLODIPine [Norvasc] 5 mg PO DAILY 03/16/25 03/16/25 History carvediloL [Coreg] 6.25 mg PO BID 03/16/25 03/16/25 History Allergies Allergy/AdvReac Type Severity Reaction Status Date / Time No Known Allergies Allergy Verified 03/16/25 17:54 Physical Exam Vitals: Vital Signs Temp Pulse Pulse Resp BP BP BP 03/17/25 10:00 60 90/50 03/17/25 08:30 60 80/46 03/17/25 06:53 97.8 F 60 20 83/55 03/17/25 00:51 98.1 F 69 19 122/70 03/16/25 20:30 60 16 03/16/25 19:21 98.0 F 60 18 106/57 03/16/25 18:24 103 F H 69 18 123/58 03/16/25 17:33 103.1 F H 60 03/16/25 16:44 60 18 129/68 03/16/25 14:17 60 20 138/53 03/16/25 11:57 100.2 F H 60 60 20 140/53 Pulse Ox 03/17/25 10:00 03/17/25 08:30 03/17/25 06:53 96 03/17/25 00:51 95 03/16/25 20:30 03/16/25 19:21 97 03/16/25 18:24 94 L 03/16/25 17:33 03/16/25 16:44 96 03/16/25 14:17 96 03/16/25 11:57 97 Intake and Output 03/16/25 03/17/25 03/17/25 22:59 06:59 14:59 Intake Total 164.003 Output Total 100 Balance -100 164.003 Intake: Intake, IV Titration 164.003 Amount Heparin Sod,Pork in 0.45% 164.003 NaCl 25,000 unit In 0.45 % NaCl 1 250ml.bag @ 18 UNITS/KG/HR 18.779 mls/hr IV .[id number] [facility] Rx#: [id number] Output: Urine 100 Other: Voiding Method External Catheter External Catheter # Voids 2 1 # Bowel Movements 1 Weight 104.326 kg Results 03/17/25 05:57 03/17/25 05:57 Cardiac Enzymes 03/16/25 03/16/25 03/16/25 Range/Units 12:46 12:46 16:01 AST 40 (17-59) U/L Troponin I 0.015 0.030 (0.000-0.034) ng/mL 03/16/25 Range/Units 18:01 AST (17-59) U/L Troponin I 0.043 H* (0.000-0.034) ng/mL Coagulation 03/16/25 03/16/25 03/17/25 Range/Units 12:46 21:42 05:57 PT 11.3 12.1 (10.0-12.5) sec APTT 23.2 24.6 104.6 H* (22.0-30.0) sec Lipids 03/17/25 Range/Units 05:57 Triglycerides 49.30 (0.00-149.00) mg/dL CBC 03/16/25 03/16/25 Range/Units 12:46 21:42 WBC 18.80 H 30.18 H (4.50-10.00) 10*3/uL RBC 5.50 4.96 (4.40-5.60) 10*6/uL Hgb 12.3 L 11.2 L (13.0-17.0) g/dL Hct 41.0 36.4 L (39.6-50.0) % Plt Count 288 251 (140-440) 10*3/uL Comprehensive Metabolic Panel 03/16/25 Range/Units 12:46 Sodium 142 (137-145) mmol/L Potassium 4.2 (3.5-5.1) mmol/L Chloride 105 (98-107) mmol/L Carbon Dioxide 24 (22-30) mmol/L BUN 29 H (9-20) mg/dL Creatinine 1.14 (0.66-1.25) mg/dL Glucose 78 (74-99) mg/dL Calcium 8.8 (8.4-10.2) mg/dL AST 40 (17-59) U/L ALT 30 (4-49) U/L Alkaline Phosphatase 109 (38-126) U/L Total Protein 8.0 (6.3-8.2) g/dL Albumin 4.4 (3.5-5.0) g/dL Current Medications Generic Name Dose Route Start Last Admin Trade Name Freq PRN Reason Stop Dose Admin Acetaminophen 650 mg 03/16/25 20:50 Acetaminophen Tab 325 Mg Tab PO Q6H PRN Pain or Fever > 100.5 Aspirin 325 mg 03/17/25 09:00 03/17/25 10:29 Aspirin 325 Mg Tab PO 325 mg DAILY [facility] Administration Carvedilol 6.25 mg 03/16/25 21:00 03/17/25 06:13 Carvedilol 6.25 Mg Tab PO 6.25 mg BID-W/MEALS [facility] Administration Heparin Sodium (Porcine) 0 unit 03/16/25 20:59 Heparin Sodium 1,000 Un/Ml (10ml Vl) IV PER PROTOCOL PRN Low PTT Protocol Ceftriaxone Sodium 2 gm/ 50 mls @ 100 mls/hr 03/16/25 19:00 03/16/25 18:28 Sodium Chloride IVPB 100 mls/hr Q24H [facility] Administration Protocol Vancomycin HCl 1,500 mg/ 500 mls @ 167 mls/hr 03/17/25 10:00 03/17/25 08:57 Sodium Chloride IVPB 167 mls/hr Q16H [facility] Administration Sodium Chloride 1,000 mls @ 75 mls/hr 03/16/25 21:00 03/17/25 08:58 Saline 0.9% IV 03/18/25 20:59 75 mls/hr .[id number] [facility] Administration Heparin Sodium/Sodium Chloride 250 mls @ 18.779 mls/hr 03/16/25 21:00 03/17/25 08:15 25,000 unit/ Sodium Chloride IV 15 units/kg/hr .[id number] [facility] 15.649 mls/hr Titration Protocol 18 UNITS/KG/HR Ibuprofen 400 mg 03/16/25 17:38 03/16/25 18:10 Ibuprofen 400 Mg Tab PO 400 mg Q6HR PRN Administration Pain Levothyroxine Sodium 50 mcg 03/17/25 06:30 03/17/25 06:13 Levothyroxine 50 Mcg Tab PO 50 mcg 0630 [facility] Administration Midodrine 10 mg 03/17/25 12:30 Midodrine 5 Mg Tab PO 03/19/25 12:29 AC-TID [facility] Nitroglycerin 0.4 mg 03/16/25 14:21 Nitroglycerin Sl Tabs 0.4 Mg Tab SUBLINGUAL Q5M PRN Chest Pain Nystatin 1 applic 03/16/25 22:32 Nystatin 100,000 Unit/Gm Powd 15 Gm TOPICAL TID PRN See Comments Protocol Sertraline HCl 25 mg 03/17/25 09:00 03/17/25 10:29 Sertraline 25 Mg Tab PO 25 mg DAILY [facility] Administration Torsemide 20 mg 03/17/25 09:00 03/17/25 08:59 Torsemide 20 Mg Tab PO Not Given DAILY [facility] Intake and Output 03/16/25 03/17/25 03/17/25 22:59 06:59 14:59 Intake Total 164.003 Output Total 100 Balance -100 164.003 Intake: Intake, IV Titration 164.003 Amount Heparin Sod,Pork in 0.45% 164.003 NaCl 25,000 unit In 0.45 % NaCl 1 250ml.bag @ 18 UNITS/KG/HR 18.779 mls/hr IV .[id number] [facility] Rx#: [id number] Output: Urine 100 Other: Voiding Method External Catheter External Catheter # Voids 2 1 # Bowel Movements 1 Weight 104.326 kg 03/16/25 21:42 03/16/25 12:46
[2025-03-17] MEDS: MIDODRINE 5 MG TAB PO SCH (15:04)
--- NOTE | 2025-03-17 15:18 | P.PN ---
Subjective Progress Note Date: 03/17/25 Principal diagnosis: Reason for follow-up is sepsis/cellulitis/UTI Patient is a 59-year-old male with a past medical history significant forAtrial Fibrillation, Dementia, Deep Vein Thrombosis (DVT), GERD/Reflux, Hyperlipidemia, Hypertension, Vascular Disorder, Augmentin be changed, dementia longterm resident patient has been sent to the concerning for chest disco mfort patient also noted to be septic with concern for right lower extremity cellulitis plus concern for UTI prompting this consultation. On today's evaluation that is 03/17/2025, Patient did have resolution of his fever and is afebrile this morning patient is currently on room air and denies having any shortness of breath, the patient denies any chest pain or cough, the patient denies any nausea vomiting did not have any abdominal pain and no diarrhea reported by the nurse aide. Patient white count is down to 25.75, creatinine is 2.3 cultures are pending Objective - Vital Signs Vital signs: Vital Signs Temp 98.3 F 03/17/25 13:15 Pulse 60 03/17/25 13:15 Resp 20 03/17/25 13:15 BP 104/58 03/17/25 13:15 Pulse Ox 96 03/17/25 13:15 FiO2 Intake & Output 03/16/25 03/17/25 03/17/25 18:59 06:59 18:59 Intake Total 382.604 Output Total 100 Balance -100 382.604 Weight 104.326 kg 104.326 kg Intake: Intake, IV Titration 202.604 Amount Heparin Sod,Pork in 0.45% 202.604 NaCl 25,000 unit In 0.45 % NaCl 1 250ml.bag @ 18 UNITS/KG/HR 18.779 mls/hr IV .[id number] [facility] Rx#: [id number] Oral 180 Output: Urine 100 Other: Voiding Method External Catheter External Catheter # Voids 1 4 # Bowel Movements 1 2 - Exam GENERAL DESCRIPTION: An elderly male lying in bed in no distress RESPIRATORY SYSTEM: Unlabored breathing , decreased breath sounds at bases HEART: S1 S2 regular rate and rhythm , ABDOMEN: Soft , no tenderness EXTREMITIES: Right leg swelling redness slightly decreased - Labs CBC & Chem 7: 03/17/25 05:57 03/17/25 05:57 Labs: Abnormal Lab Results - Last 24 Hours (Table) 03/16/25 03/16/25 03/17/25 Range/Units 18:01 21:42 05:57 WBC 30.18 H (4.50-10.00) 10*3/uL Hgb 11.2 L (13.0-17.0) g/dL Hct 36.4 L (39.6-50.0) % MCV 73.4 L (80.0-97.0) fL MCH 22.6 L (27.0-32.0) pg MCHC 30.8 L (32.0-37.0) g/dL RDW 17.9 H (11.5-14.5) % Immature Gran # 0.60 H (0.00-0.04) 10*3/uL Neutrophils # (1.80-7.70) X 10*3/uL Neutrophils # (Manual) 28.67 H (1.3-7.7) k/uL Lymphocytes # (0.90-5.00) X 10*3/uL Lymphocytes # (Manual) 0.60 L (1.0-4.8) k/uL Eosinophils # (0.04-0.35) X 10*3/uL APTT (22.0-30.0) sec Carbon Dioxide 17.1 L (21.6-31.8) mmol/L Anion Gap 17.90 H (4.00-12.00) mmol/L BUN 41.2 H (9.0-27.0) mg/dL Creatinine 2.3 H (0.6-1.5) mg/dL Est GFR (CKD-EPI) 28 L (>=60) Calcium 7.6 L (8.7-10.3) mg/dL Troponin I 0.043 H* (0.000-0.034) ng/mL 03/17/25 03/17/25 Range/Units 05:57 05:57 WBC 25.75 H (4.50-10.00) 10*3/uL Hgb 10.9 L (13.0-17.0) g/dL Hct 37.1 L (39.6-50.0) % MCV 74.9 L (80.0-97.0) fL MCH 22.0 L (27.0-32.0) pg MCHC 29.4 L (32.0-37.0) g/dL RDW 18.2 H (11.5-14.5) % Immature Gran # 0.56 H (0.00-0.04) 10*3/uL Neutrophils # 24.18 H (1.80-7.70) X 10*3/uL Neutrophils # (Manual) (1.3-7.7) k/uL Lymphocytes # 0.42 L (0.90-5.00) X 10*3/uL Lymphocytes # (Manual) (1.0-4.8) k/uL Eosinophils # 0.01 L (0.04-0.35) X 10*3/uL APTT 104.6 H* (22.0-30.0) sec Carbon Dioxide (21.6-31.8) mmol/L Anion Gap (4.00-12.00) mmol/L BUN (9.0-27.0) mg/dL Creatinine (0.6-1.5) mg/dL Est GFR (CKD-EPI) (>=60) Calcium (8.7-10.3) mg/dL Troponin I (0.000-0.034) ng/mL Assessment and Plan (1) Sepsis Current Visit: Yes Status: Acute Code(s): A41.9 - SEPSIS, UNSPECIFIED ORGANISM SNOMED Code(s): 91330018 (2) Cellulitis of right leg Current Visit: Yes Status: Acute Code(s): L03.115 - CELLULITIS OF RIGHT LOWER LIMB SNOMED Code(s): 99422189244204820 (3) UTI (urinary tract infection) Current Visit: Yes Status: Acute Code(s): N39.0 - URINARY TRACT INFECTION, SITE NOT SPECIFIED SNOMED Code(s): 29666261 Plan: 1patient presented to hospital with sepsis in this patient who did have a fever elevated white count meeting criteria for the SIRS/sepsis source is the right foot wound with secondary cellulitis of the right lower extremity patient also have significantly positive UA with mental status changes a component of UTI not entirely excluded. Keeping in mind patient is a longterm resident will need to cover for the MRSA 2patient noticed to have worsening of his kidney function will discontinue vancomycin start the patient on daptomycin continue with Rocephin while waiting for the workup to be completed Dictation was produced using dragon dictation software. please excuse any gramm atical, word or spelling errors. Time with Patient: Less than 30
[2025-03-17] MEDS: DAPTOmycin 350 MG in SODIUM CHLORIDE 0.9% 50 ML IVPB SCH (19:58)
[2025-03-17] MEDS: HEPARIN SODIUM,PORCINE 5,000 UNIT/ML 1 ML VIAL SQ SCH (19:59)
[2025-03-17] MEDS: NYSTATIN 100,000 UNIT/GM POWD 15 GM TOPICAL PRN (20:04)
--- NOTE | 2025-03-18 06:08 | P.PN ---
Subjective This is a pleasant 79 years old male who was sent from correction for possible chest pain Patient admitted from ER for chest pain when I saw the patient he was awake alert calm however he looks confused and poor historian. He did not complain to me from chest pain actually could not provide information However his right leg looks swollen red and tender and there is superficial ulcer on the dorsum of the right foot with dressing in place and some purulent discharge On admission he had a fever of 103. Labs showed leukocytosis of 18,000, hemoglobin 12.3, BMP and LFT were unremarkable. Urinalysis suspicious for infection and UTI X-ray of the right foot and right leg showing soft tissue swelling of the right foot and ulcer on the dorsum of the right foot. No evidence of fracture or gas border in the leg or right foot Ultrasound of the right leg is negative for DVT but showing right groin lymphadenopathy Chest x-ray reported as cardiomegaly with mild pulmonary vascular congestion D-dimer is negative at 0.46. Troponin negative times two 0.015 and 0.03, third 1 came back mildly positive at 0.043. 03/18 Patient feels better Hypotension is improving His Norvasc Jardiance and Eliquis remains on hold Today heparin drip was discontinued therefore we are going to resume his Eliquis. Patient with no chest pain Continue with midodrine for 1-2 more days. Continue with IV fluid. Continue with antibiotics as per infectious disease team His urine culture is growing his gram-negative bacilli. His right leg and foot cellulitis and infected wound also improving slightly today. Active Medications Generic Name Dose Route Start Last Admin Trade Name Freq PRN Reason Stop Dose Admin Acetaminophen 650 mg 03/16/25 20:50 Acetaminophen Tab 325 Mg Tab PO Q6H PRN Pain or Fever > 100.5 Apixaban 5 mg 03/18/25 06:30 Apixaban 5 Mg Tab PO BID [facility] Protocol Carvedilol 6.25 mg 03/16/25 21:00 03/17/25 18:13 Carvedilol 6.25 Mg Tab PO Not Given BID-W/MEALS [facility] Heparin Sodium (Porcine) 5,000 unit 03/17/25 21:00 03/17/25 19:59 Heparin Sodium,Porcine 5,000 Unit/Ml 1 Ml Vial SQ 5,000 unit Q12HR [facility] Administration Ceftriaxone Sodium 2 gm/ 50 mls @ 100 mls/hr 03/16/25 19:00 03/17/25 18:21 Sodium Chloride IVPB 100 mls/hr Q24H [facility] Administration Protocol Sodium Chloride 1,000 mls @ 75 mls/hr 03/16/25 21:00 03/18/25 05:50 Saline 0.9% IV 03/18/25 20:59 75 mls/hr .[id number] [facility] Administration Daptomycin 350 mg/ Sodium 50 mls @ 100 mls/hr 03/17/25 21:00 03/17/25 19:58 Chloride IVPB 100 mls/hr Q48H [facility] Administration Protocol Ibuprofen 400 mg 03/16/25 17:38 03/16/25 18:10 Ibuprofen 400 Mg Tab PO 400 mg Q6HR PRN Administration Pain Levothyroxine Sodium 50 mcg 03/17/25 06:30 03/18/25 05:48 Levothyroxine 50 Mcg Tab PO 50 mcg 0630 [facility] Administration Midodrine 10 mg 03/17/25 12:30 03/18/25 05:48 Midodrine 5 Mg Tab PO 03/19/25 12:29 10 mg AC-TID [facility] Administration Nitroglycerin 0.4 mg 03/16/25 14:21 Nitroglycerin Sl Tabs 0.4 Mg Tab SUBLINGUAL Q5M PRN Chest Pain Nystatin 1 applic 03/16/25 22:32 03/17/25 20:04 Nystatin 100,000 Unit/Gm Powd 15 Gm TOPICAL 1 applic TID PRN Administration See Comments Protocol Sertraline HCl 25 mg 03/17/25 09:00 03/17/25 10:29 Sertraline 25 Mg Tab PO 25 mg DAILY [facility] Administration Torsemide 20 mg 03/17/25 09:00 03/17/25 08:59 Torsemide 20 Mg Tab PO Not Given DAILY [facility] Objective - Vital Signs Vital signs: Vital Signs Temp 97.8 F 03/17/25 06:53 Pulse 60 03/17/25 10:00 Resp 20 03/17/25 06:53 BP 90/50 03/17/25 10:00 Pulse Ox 96 03/17/25 06:53 FiO2 Intake & Output 03/16/25 03/17/25 03/17/25 18:59 06:59 18:59 Intake Total 202.604 Output Total 100 Balance -100 202.604 Weight 104.326 kg 104.326 kg Intake: Intake, IV Titration 202.604 Amount Heparin Sod,Pork in 0.45% 202.604 NaCl 25,000 unit In 0.45 % NaCl 1 250ml.bag @ 18 UNITS/KG/HR 18.779 mls/hr IV .[id number] [facility] Rx#: [id number] Output: Urine 100 Other: Voiding Method External Catheter External Catheter # Voids 1 # Bowel Movements 1 - Exam GENERAL: The patient is alert and oriented x3, not in any acute distress. Well developed, well nourished. HEENT: Pupils are round and equally reacting to light. EOMI. No scleral icterus. No conjunctival pallor. Normocephalic, atraumatic. No pharyngeal erythema. No t hyromegaly. CARDIOVASCULAR: S1 and S2 present. No murmurs, rubs, or gallops. PULMONARY: Chest is clear to auscultation, no wheezing , no crackles. ABDOMEN: Soft, nontender, nondistended, normoactive bowel sounds. No palpable organomegaly. MUSCULOSKELETAL: No joint swelling or deformity. -EXTREMITIES: No cyanosis, clubbing, or pedal edema. Right leg cellulitis including distal leg and right foot. Infected superficial wound on the dorsum of the right foot as well with minimal discharge NEUROLOGICAL: Gross neurological examination did not reveal any focal deficits. SKIN: No rashes. no petechiae. - Labs CBC & Chem 7: 03/17/25 05:57 03/17/25 05:57 Labs: Abnormal Lab Results - Last 24 Hours (Table) 03/16/25 03/16/25 03/16/25 Range/Units 12:46 12:46 14:51 WBC 18.80 H (4.50-10.00) 10*3/uL Hgb 12.3 L (13.0-17.0) g/dL Hct (39.6-50.0) % MCV 74.5 L (80.0-97.0) fL MCH 22.4 L (27.0-32.0) pg MCHC 30.0 L (32.0-37.0) g/dL RDW (11.5-14.5) % Immature Gran # 0.10 H (0.00-0.04) 10*3/uL Neutrophils # 16.58 H (1.80-7.70) 10*3/uL Neutrophils # (Manual) (1.3-7.7) k/uL Lymphocytes # (0.90-5.00) X 10*3/uL Lymphocytes # (Manual) (1.0-4.8) k/uL Eosinophils # (0.04-0.35) X 10*3/uL APTT (22.0-30.0) sec Carbon Dioxide (21.6-31.8) mmol/L Anion Gap (4.00-12.00) mmol/L BUN 29 H (9-20) mg/dL Creatinine (0.6-1.5) mg/dL Est GFR (CKD-EPI) (>=60) Calcium (8.7-10.3) mg/dL Troponin I (0.000-0.034) ng/mL Urine Glucose (UA) 3+ H (Negative) Urine Blood Trace H (Negative) Ur Leukocyte Esterase Large H (Negative) Urine WBC >182 H (0-5) /hpf Urine WBC Clumps Moderate H (None) /hpf Urine Bacteria Occasional H (None) /hpf Urine Yeast (Budding) Few H (None) /hpf 03/16/25 03/16/25 03/17/25 Range/Units 18:01 21:42 05:57 WBC 30.18 H (4.50-10.00) 10*3/uL Hgb 11.2 L (13.0-17.0) g/dL Hct 36.4 L (39.6-50.0) % MCV 73.4 L (80.0-97.0) fL MCH 22.6 L (27.0-32.0) pg MCHC 30.8 L (32.0-37.0) g/dL RDW 17.9 H (11.5-14.5) % Immature Gran # 0.60 H (0.00-0.04) 10*3/uL Neutrophils # (1.80-7.70) 10*3/uL Neutrophils # (Manual) 28.67 H (1.3-7.7) k/uL Lymphocytes # (0.90-5.00) X 10*3/uL Lymphocytes # (Manual) 0.60 L (1.0-4.8) k/uL Eosinophils # (0.04-0.35) X 10*3/uL APTT (22.0-30.0) sec Carbon Dioxide 17.1 L (21.6-31.8) mmol/L Anion Gap 17.90 H (4.00-12.00) mmol/L BUN 41.2 H (9-20) mg/dL Creatinine 2.3 H (0.6-1.5) mg/dL Est GFR (CKD-EPI) 28 L (>=60) Calcium 7.6 L (8.7-10.3) mg/dL Troponin I 0.043 H* (0.000-0.034) ng/mL Urine Glucose (UA) (Negative) Urine Blood (Negative) Ur Leukocyte Esterase (Negative) Urine WBC (0-5) /hpf Urine WBC Clumps (None) /hpf Urine Bacteria (None) /hpf Urine Yeast (Budding) (None) /hpf 03/17/25 03/17/25 Range/Units 05:57 05:57 WBC 25.75 H (4.50-10.00) 10*3/uL Hgb 10.9 L (13.0-17.0) g/dL Hct 37.1 L (39.6-50.0) % MCV 74.9 L (80.0-97.0) fL MCH 22.0 L (27.0-32.0) pg MCHC 29.4 L (32.0-37.0) g/dL RDW 18.2 H (11.5-14.5) % Immature Gran # 0.56 H (0.00-0.04) 10*3/uL Neutrophils # 24.18 H (1.80-7.70) 10*3/uL Neutrophils # (Manual) (1.3-7.7) k/uL Lymphocytes # 0.42 L (0.90-5.00) X 10*3/uL Lymphocytes # (Manual) (1.0-4.8) k/uL Eosinophils # 0.01 L (0.04-0.35) X 10*3/uL APTT 104.6 H* (22.0-30.0) sec Carbon Dioxide (21.6-31.8) mmol/L Anion Gap (4.00-12.00) mmol/L BUN (9-20) mg/dL Creatinine (0.6-1.5) mg/dL Est GFR (CKD-EPI) (>=60) Calcium (8.7-10.3) mg/dL Troponin I (0.000-0.034) ng/mL Urine Glucose (UA) (Negative) Urine Blood (Negative) Ur Leukocyte Esterase (Negative) Urine WBC (0-5) /hpf Urine WBC Clumps (None) /hpf Urine Bacteria (None) /hpf Urine Yeast (Budding) (None) /hpf Assessment and Plan Assessment: Sepsis with fever and leukocytosis Right foot and leg cellulitis with infected wound on the dorsum of the right foot Acute urinary tract infection secondary to gram-negative bacilli Chest pain with mildly elevated troponin, cardiac causes ruled out most likely secondary to infection. Hypothyroidism Paroxysmal atrial fibrillation Dementia Hypertension Hyperlipidemia Chronic anemia Chronic hypoxic respiratory failure Plan: Continue with IV ceftriaxone Start normal sinus 75 mm/h H resume Eliquis Continue with Coreg and torsemide Hold Norvasc and Jardiance Cardiology consult is appreciated. No further cardiac workup Infectious disease consult Follow-up culture results Labs and medication were reviewed.. Continue same treatment. Continue with symptomatic treatment. Resume home medication. Monitor labs and vitals. DVT and GI prophylaxis. Further recommendations as per clinical course of the patient DVT prophylaxis: Subcutaneous heparin GI Prophylaxis: P Protonix Prognosis is guarded
[2025-03-18] MEDS ORDERED: APIXABAN 5 MG TAB PO SCH (08:00)
--- NOTE | 2025-03-18 08:16 | P.PN ---
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 He has a past medical history of atrial fibrillation, pacemaker implantation, hypertension, hypothyroidism. Patient came in from the snf due to chest pain that had resolved by the time he arrived to the ER. Patient is unable to provide any history. His baseline mentation is oriented to 1. He is being treated for acute urinary tract infection and cellulitis of the right lower extremity. Patient denies chest pain, chest pressure. He denies shortness of breath. Blood pressure 90/50, heart rate 60, pulse ox 96% on room air. Patient has been started on high intensity heparin drip. -EKG: Ventricularly paced rhythm. -Chest x-ray: Cardiomegaly with mild pulmonary vascular congestion. -Venous duplex of the right lower extremity negative for DVT. -Laboratory studies: WBC 25.7, hemoglobin 10.9. D-dimer 0.46. BUN 41, creatinine initially 1.1 is now 2.3. Troponins 0.015, 0.03, 0.043. Triglycerides 49, cholesterol 113, LDL 61. Urinalysis positive for UTI. -Home cardiac medications: Amlodipine 5 mg daily, Eliquis 5 mg twice daily, Coreg 6.25 mg twice daily, Jardiance 10 mg daily, torsemide 20 mg daily, also on levothyroxine. 03/18 Patient seen and examined. Patient somewhat confused. He denies any chest pain or pressure however. Creatinine increased to 2.3. Nurse states he is somewhat incontinent and unclear if he is totally voiding. He did have some hypotensive episodes the prior day with blood pressures in the 80s over 40s. He denies any significant shortness of breath however wheezing on exam. No significant crackles auscultated. He is receiving IV fluids at 75 cc/h. Prior BNP in the 900 range on admission. Review Of Systems: At the time of my exam: CONSTITUTIONAL: Denies fever or chills. HEENT: Denies blurred vision, vision changes, or eye pain. Denies hemoptysis CARDIOVASCULAR: Denies chest pain. Denies orthopnea. Denies PND. Denies palpitations RESPIRATORY: Denies shortness of breath. GASTROINTESTINAL: Denies abdominal pain. Denies nausea or vomiting. HEMATOLOGIC: Denies bleeding disorders. GENITOURINARY: Denies any blood in urine. SKIN: Denies puritis. Denies rash. Physical examination: Gen: This is an 79-year-old male in no acute distress VS: reviewed HEENT: Head is atraumatic, normocephalic. Pupils equal, round. Sclerae is anicteric. NECK: Supple. No JVD. LUNGS: Clear to auscultation. No wheezes or rhonchi. No intercostal retractions. HEART: Regular rate and rhythm. No murmur. ABDOMEN: Soft No tenderness. EXTREMITIES: No pedal edema. No calf tenderness. NEUROLOGICAL: Patient is awake, alert to person only which is his baseline. Assessment: UTI Cellulitis of the right lower extremity Sepsis Atypical chest pain, acute coronary syndrome ruled out Elevated troponin secondary to acute kidney injury Acute NC has been ruled out Acute kidney injury Chronic atrial fibrillation on Eliquis Pacemaker implantation Hypertension Hypothyroidism Long-term snf resident Plan: Non-STEMI appears type II mechanism related to sepsis. Check 2D echo. He is receiving IV fluids with some acute kidney injury likely related to ATN from hypotensive episode. Discussed with nursing checking a bladder scan to ensure no obstructive uropathy. Decrease IV fluids to 40 cc/h and he is also receiving torsemide. Check chest x-ray given some tachypnea on exam and wheezing. If still hypotensive episodes patient may need more pressors than IV fluids. Recheck BNP. Objective - Vital Signs Vital signs: Vital Signs Temp 98.5 F 03/18/25 07:15 Pulse 68 03/18/25 07:15 Resp 20 03/18/25 07:15 BP 101/42 03/18/25 07:15 Pulse Ox 91 L 03/18/25 07:15 FiO2 Intake & Output 03/17/25 03/18/25 03/18/25 18:59 06:59 18:59 Intake Total 604.604 Balance 604.604 Intake: Intake, IV Titration 202.604 Amount Heparin Sod,Pork in 0.45% 202.604 NaCl 25,000 unit In 0.45 % NaCl 1 250ml.bag @ 18 UNITS/KG/HR 18.779 mls/hr IV .[id number] [facility] Rx#: [id number] Oral 402 Other: Voiding Method External Catheter External Catheter # Voids 4 2 # Bowel Movements 2 2 - Labs CBC & Chem 7: 03/17/25 05:57 03/17/25 05:57 Labs: Abnormal Lab Results - Last 24 Hours (Table) 03/17/25 03/17/25 Range/Units 05:57 05:57 WBC 25.75 H (4.50-10.00) X 10*3/uL Hgb 10.9 L (13.0-17.0) g/dL Hct 37.1 L (39.6-50.0) % MCV 74.9 L (80.0-97.0) FL MCH 22.0 L (27.0-32.0) pg MCHC 29.4 L (32.0-37.0) g/dL RDW 18.2 H (11.5-14.5) % Immature Gran # 0.56 H (0.00-0.04) X 10*3/uL Neutrophils # 24.18 H (1.80-7.70) X 10*3/uL Lymphocytes # 0.42 L (0.90-5.00) X 10*3/uL Eosinophils # 0.01 L (0.04-0.35) X 10*3/uL Carbon Dioxide 17.1 L (21.6-31.8) mmol/L Anion Gap 17.90 H (4.00-12.00) mmol/L BUN 41.2 H (9.0-27.0) mg/dL Creatinine 2.3 H (0.6-1.5) mg/dL Est GFR (CKD-EPI) 28 L (>=60) Calcium 7.6 L (8.7-10.3) mg/dL Microbiology - Last 24 Hours (Table) 03/16/25 18:01 Blood Culture - Preliminary Blood 03/16/25 14:51 Urine Culture - Preliminary Urine,Voided Gram Neg Bacilli
[2025-03-18 08:54] LABS: African American GFR (CKD) 43 (>60 ml/min/1.73 sqM); Non-African American GFR(CKD) 37 (>60 ml/min/1.73 sqM)
[2025-03-18 09:15] LABS: Vancomycin,Random 11.6 ug/mL
[2025-03-18] MEDS: IPRATROPIUM-ALBUTEROL 3 ML NEB INHALATION PRN (09:25)
[2025-03-18] MEDS: APIXABAN 2.5 MG TABLET PO SCH (10:16)
--- NOTE | 2025-03-18 11:47 | XR ---
EXAMINATION TYPE: XR chest 1V portable DATE OF EXAM: 03/18/2025 11:36 AM COMPARISON: None. CLINICAL INDICATION: Male, 79 years old with history of re: SOB, TECHNIQUE: XR chest 1V portable view(s) obtained. FINDINGS: The heart size is normal. Pacemaker over the left chest. The pulmonary vasculature is normal. The lungs are clear. IMPRESSION: 1. No acute pulmonary process. [facility], , 03/18/2025 11:44 AM
--- NOTE | 2025-03-18 12:11 | CA ---
Transthoracic Echo Report Name: Paco Whaley Age: 79 Gender: M : 1945 Exam Date: 03/18/2025 08:43 Exam Location: [facility] Ht (in): 70 Wt (lb): 230 Ordering Physician: Yenifer Mckeon Attending/Referring Phys: [id number], Linda Bus Attendant Arielle Gamez, JENNIFER Procedure CPT: Indications: LVF, elevated trops Cardiac Hx: Technical Quality: Poor Contrast 1: Definity Total Dose (mL): 2 Contrast 2: Total Dose (mL): MEASUREMENTS (Male / Female) Normal Values 2D ECHO LV Diastolic Diameter PLAX 4.1 cm 4.2 - 5.9 / 3.9 - 5.3 cm LV Systolic Diameter PLAX 3.2 cm IVS Diastolic Thickness 1.5 cm 0.6 - 1.0 / 0.6 - 0.9 cm LVPW Diastolic Thickness 1.5 cm 0.6 - 1.0 / 0.6 - 0.9 cm LV Relative Wall Thickness 0.7 RV Internal Dim ED PLAX 3.3 cm LVOT Diameter 2.1 cm LA Systolic Diameter LX 4.5 cm 3.0 - 4.0 / 2.7 - 3.8 cm M-MODE Aortic Root Diameter MM 3.1 cm LA Systolic Diameter MM 3.3 cm LA Ao Ratio MM 1.1 AV Cusp Separation MM 1.6 cm DOPPLER AV Peak Velocity 127.6 cm/s AV Peak Gradient 6.5 mmHg AV Mean Velocity 92.5 cm/s AV Mean Gradient 3.9 mmHg AV Velocity Time Integral 28.5 cm LVOT Peak Velocity 77.5 cm/s LVOT Peak Gradient 2.4 mmHg LVOT Velocity Time Integral 18.0 cm LVOT Stroke Volume 60.0 cm??? LVOT Stroke Volume Index 27.1 ml/m??? LVOT Cardiac Index 1797.5 cm???/min???m??? AV Area Cont Eq vti 2.1 cm??? AV Area Cont Eq pk 2.0 cm??? MV Area PHT 3.2 cm??? Mitral E Point Velocity 90.3 cm/s Mitral A Point Velocity 2.9 cm/s Mitral E to A Ratio 31.3 MV Deceleration Time 239.8 ms TR Peak Velocity 270.1 cm/s TR Peak Gradient 29.2 mmHg Right Ventricular Systolic Press 38.3 mmHg FINDINGS Left Ventricle Left ventricular ejection fraction is estimated at 40-45 %. Moderately increased septal wall thickness. Mildly reduced global left ventricular systolic function. Left ventricular cavity size normal. Right Ventricle Moderate right ventricular dilatation. Mild pulmonary hypertension. Right Atrium Mild right atrial dilatation. Catheter/pacemaker wire in the right atrial cavity. Left Atrium Mildly increased left atrial diameter. Mitral Valve Structurally normal mitral valve. Mild mitral regurgitation. No mitral stenosis. Aortic Valve Aortic valve not well visualized. No aortic stenosis. No aortic regurgitation. Tricuspid Valve Structurally normal tricuspid valve. Mild tricuspid regurgitation. No tricuspid stenosis. Pulmonic Valve Pulmonic valve not well visualized. Trace pulmonic regurgitation. No pulmonic stenosis. Pericardium No pericardial or pleural effusion. Echo free space anterior to the right ventricle likely represents a fat pad. Aorta Normal size aortic root and proximal ascending aorta. CONCLUSIONS Left ventricular ejection fraction 40 to 45% Moderately increased left ventricular wall thickness RVSP 38 Mild mitral regurgitation Mild tricuspid regurgitation Previewed by: Dr. Luis Manuel Ventura DO (Electronically Signed) Final Date: 18 March 2025 12:10
[2025-03-18] MEDS: DAPTOmycin 350 MG in SODIUM CHLORIDE 0.9% 50 ML IVPB SCH (21:51)
--- NOTE | 2025-03-18 22:26 | PN ---
PROGRESS NOTE DATE OF SERVICE: 03/18/2025 SUBJECTIVE: This is an 79-year-old gentleman, who was admitted with right foot cellulitis with infected wound on the dorsum, is on IV antibiotics. No chest pain. No palpitation. PHYSICAL EXAMINATION: VITAL SIGNS: Pulse is 68, blood pressure 101/42, and respirations 20. CHEST: Clear to auscultation. CARDIOVASCULAR: S1, S2. ABDOMEN: Soft. LEGS: Noted. LABORATORY DATA: WBC 25.75. Rest of the labs are noted. Cultures shows gram-negative bacilli in the urine. ASSESSMENT: 1. Sepsis with fever and leukocytosis. 2. Right foot and leg cellulitis with infected wound on the dorsum of the right foot. 3. Gram-negative bacilli with urinary tract infection, history chest pain with mildly elevated troponin. Myocardial infarction ruled out. Rule out coronary artery disease. 4. Hypothyroidism. 5. Paroxysmal atrial fibrillation. 6. Dementia. 7. Multiple complex medical issues. PLAN: Recommend to continue current management. Prognosis guarding. Continue with daptomycin and closely follow with Infectious Disease. Repeat labs. Continue with antibiotics. Guarded prognosis because of multiple complex medical issues. Further recommendations to follow. MMODL / IJN: [id number] /
[2025-03-19 08:02] LABS: Basophils # (A) 0.05 X 10*3/uL (0.00-0.10); Basophils % (A) 0.3 %; Eosinophils # (A) 0.12 X 10*3/uL (0.04-0.35); Eosinophils % (A) 0.8 %; HCT 31.5 % (39.6-50.0); HGB 9.5 g/dL (13.0-17.0); Lymphocytes # (A) 1.41 X 10*3/uL (0.90-5.00); Lymphocytes % (A) 9.4 %; MCH 22.3 pg (27.0-32.0); MCHC 30.2 g/dL (32.0-37.0); MCV 73.9 FL (80.0-97.0); Mean Platelet Volume 12.2 FL (9.5-12.2); Monocytes # (A) 0.72 X 10*3/uL (0.20-1.00); Monocytes % (A) 4.8 %; NRBC Per 100 WBC 0 X 10*3/uL (0.00-0.01); Neutrophils # (A) 12.53 X 10*3/uL (1.80-7.70); Neutrophils % (A) 83.8 %; Platelet Count 212 X 10*3/uL (140-440); RBC 4.26 X 10*6/uL (4.40-5.60); RDW 18.5 % (11.5-14.5); WBC 14.96 X 10*3/uL (4.50-10.00)
[2025-03-19 08:26] LABS: BUN/Creat Ratio 23.31 Ratio (12.00-20.00); Blood Urea Nitrogen 30.3 mg/dL (9.0-27.0); Calcium 7.3 mg/dL (8.7-10.3); Chloride 107 mmol/L (96-109); Glucose 93 mg/dL (70-110); Sodium 139 mmol/L (135-145)
--- NOTE | 2025-03-19 13:54 | P.PN ---
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 He has a past medical history of atrial fibrillation, pacemaker implantation, hypertension, hypothyroidism. Patient came in from the long term due to chest pain that had resolved by the time he arrived to the ER. Patient is unable to provide any history. His baseline mentation is oriented to 1. He is being treated for acute urinary tract infection and cellulitis of the right lower extremity. Patient denies chest pain, chest pressure. He denies shortness of breath. Blood pressure 90/50, heart rate 60, pulse ox 96% on room air. Patient has been started on high intensity heparin drip. -EKG: Ventricularly paced rhythm. -Chest x-ray: Cardiomegaly with mild pulmonary vascular congestion. -Venous duplex of the right lower extremity negative for DVT. -Laboratory studies: WBC 25.7, hemoglobin 10.9. D-dimer 0.46. BUN 41, creatini ne initially 1.1 is now 2.3. Troponins 0.015, 0.03, 0.043. Triglycerides 49, cholesterol 113, LDL 61. Urinalysis positive for UTI. -Home cardiac medications: Amlodipine 5 mg daily, Eliquis 5 mg twice daily, Coreg 6.25 mg twice daily, Jardiance 10 mg daily, torsemide 20 mg daily, also on levothyroxine. 03/18 Patient seen and examined. Patient somewhat confused. He denies any chest pain or pressure however. Creatinine increased to 2.3. Nurse states he is somewhat incontinent and unclear if he is totally voiding. He did have some hypotensive episodes the prior day with blood pressures in the 80s over 40s. He denies any significant shortness of breath however wheezing on exam. No significant crackles auscultated. He is receiving IV fluids at 75 cc/h. Prior BNP in the 900 range on admission. 03/19/2025 Patient examined this morning at the bedside. Patient denies chest pain or pre ssure. Denies SOB. Vital signs are stable. Creatinine improved today to 1.3 Chest x-ray completed yesterday was negative for acute process. Echocardiogram completed revealing ejection fraction 40 to 45%, mild pulmonary hypertension, mild tricuspid regurgitation, mild mitral regurgitation. Echo from the office earlier this year similar with EF 40-45% PHYSICAL EXAM: VITAL SIGNS: Reviewed. GENERAL: Well-developed in no acute distress. NECK: Supple. No JVD or thyromegaly LUNGS: Respirations even and unlabored. Lungs essentially clear to auscultation bilaterally. HEART: Regular rate and rhythm. S1 and S2 heard. EXTREMITIES: Normal range of motion. No clubbing or cyanosis. Peripheral pulses intact. No lower extremity edema ASSESSMENT: UTI Cellulitis of the right lower extremity Sepsis Atypical chest pain, acute coronary syndrome ruled out Elevated troponin secondary to acute kidney injury, no myocardial injury or ischemia Cardiomyopathy, 40 to 45%, ischemic versus nonischemic Acute [place] has been ruled out Acute kidney injury Chronic atrial fibrillation on Eliquis Pacemaker implantation Hypertension Hypothyroidism Long-term long term resident PLAN: Continue current cardiac medications Patient is stable from a cardiac standpoint with no further inpatient recommendations We will sign off. Please reconsult if needed. Nurse practitioner note has been reviewed by physician. Signing provider agrees with the documented findings, assessment, and plan of care documented by NEWSPAPER PRESS OPERATOR APPRENTICE as a scribe. Objective - Vital Signs Vital signs: Vital Signs Temp 98.3 F 03/19/25 07:00 Pulse 68 03/19/25 08:02 Resp 18 03/19/25 07:00 BP 136/66 03/19/25 07:00 Pulse Ox 93 L 03/19/25 07:00 FiO2 Intake & Output 03/18/25 03/19/25 03/19/25 18:59 06:59 18:59 Intake Total 826 Output Total 202 100 Balance 624 -100 Intake: Oral 826 Output: Urine 100 Post Void Residual 202 Other: Voiding Method External Catheter External Catheter # Voids 1 1 # Bowel Movements 1 1 - Labs CBC & Chem 7: 03/19/25 04:58 03/19/25 04:58 Labs: Abnormal Lab Results - Last 24 Hours (Table) 03/19/25 03/19/25 Range/Units 04:58 04:58 WBC 14.96 H (4.50-10.00) X 10*3/uL RBC 4.26 L (4.40-5.60) X 10*6/uL Hgb 9.5 L (13.0-17.0) g/dL Hct 31.5 L (39.6-50.0) % MCV 73.9 L (80.0-97.0) FL MCH 22.3 L (27.0-32.0) pg MCHC 30.2 L (32.0-37.0) g/dL RDW 18.5 H (11.5-14.5) % Immature Gran # 0.13 H (0.00-0.04) X 10*3/uL Neutrophils # 12.53 H (1.80-7.70) X 10*3/uL Potassium 3.0 L (3.5-5.5) mmol/L Carbon Dioxide 21.0 L (21.6-31.8) mmol/L BUN 30.3 H (9.0-27.0) mg/dL Est GFR (CKD-EPI) 55 L (>=60) BUN/Creatinine Ratio 23.31 H (12.00-20.00) Ratio Calcium 7.3 L (8.7-10.3) mg/dL Microbiology - Last 24 Hours (Table) 03/16/25 18:01 Blood Culture - Preliminary Blood 03/16/25 14:51 Urine Culture - Final Urine,Voided Proteus mirabilis
--- NOTE | 2025-03-19 14:14 | P.PN ---
Subjective Progress Note Date: 03/18/25 Principal diagnosis: Reason for follow-up is sepsis/cellulitis/UTI Patient is a 59-year-old male with a past medical history significant forAtrial Fibrillation, Dementia, Deep Vein Thrombosis (DVT), GERD/Reflux, Hyperlipidemia, Hypertension, Vascular Disorder, Augmentin be changed, dementia prison resident patient has been sent to the concerning for chest disco mfort patient also noted to be septic with concern for right lower extremity cellulitis plus concern for UTI prompting this consultation. On today's evaluation that is 03/18/2025, patient has been afebrile, patient is breathing comfortably and is currently on room air, patient is more awake and alert denies having any chest pain and cough, patient denies nausea vomiting or diarrhea and no abdominal pain or pain to the right lower extremity. No labs obtained today urine is growing gram-negative, blood cultures pending Objective - Vital Signs Vital signs: Vital Signs Temp 98.5 F 03/18/25 07:15 Pulse 60 03/18/25 09:33 Resp 18 03/18/25 09:33 BP 101/42 03/18/25 07:15 Pulse Ox 91 L 03/18/25 07:15 FiO2 Intake & Output 03/17/25 03/18/25 03/18/25 18:59 06:59 18:59 Intake Total 604.604 118 Output Total 202 Balance 604.604 -84 Intake: Intake, IV Titration 202.604 Amount Heparin Sod,Pork in 0.45% 202.604 NaCl 25,000 unit In 0.45 % NaCl 1 250ml.bag @ 18 UNITS/KG/HR 18.779 mls/hr IV .[id number] [facility] Rx#: [id number] Oral 402 118 Output: Post Void Residual 202 Other: Voiding Method External Catheter External Catheter External Catheter # Voids 4 2 2 # Bowel Movements 2 2 1 - Exam GENERAL DESCRIPTION: An elderly male lying in bed in no distress RESPIRATORY SYSTEM: Unlabored breathing , decreased breath sounds at bases HEART: S1 S2 regular rate and rhythm , ABDOMEN: Soft , no tenderness EXTREMITIES: Right leg swelling redness slightly decreased - Labs CBC & Chem 7: 03/19/25 04:58 03/19/25 04:58 Labs: Abnormal Lab Results - Last 24 Hours (Table) 03/18/25 Range/Units 08:05 Creatinine 1.70 H (0.66-1.25) mg/dL Microbiology - Last 24 Hours (Table) 03/16/25 18:01 Blood Culture - Preliminary Blood 03/16/25 14:51 Urine Culture - Preliminary Urine,Voided Gram Neg Bacilli Assessment and Plan (1) Sepsis Current Visit: Yes Status: Acute Code(s): A41.9 - SEPSIS, UNSPECIFIED ORGANISM SNOMED Code(s): 68302135 (2) Cellulitis of right leg Current Visit: Yes Status: Acute Code(s): L03.115 - CELLULITIS OF RIGHT LOWER LIMB SNOMED Code(s): 76541474393995310 (3) UTI (urinary tract infection) Current Visit: Yes Status: Acute Code(s): N39.0 - URINARY TRACT INFECTION, SITE NOT SPECIFIED SNOMED Code(s): 89634472 Plan: 1patient presented to hospital with sepsis in this patient who did have a fever elevated white count meeting criteria for the SIRS/sepsis source is the right foot wound with secondary cellulitis of the right lower extremity patient also have significantly positive UA with mental status changes a component of UTI not entirely excluded. Keeping in mind patient is a prison resident will need to cover for the MRSA 2patient noticed to have worsening of his kidney function currently being treated with daptomycin along with with Rocephin while waiting for urine culture to be finalized Dictation was produced using [employer] dictation software. please excuse any grammatical, word or spelling errors. Time with Patient: Less than 30
[2025-03-19] MEDS: PIPERACILLIN-TAZOBACTAM 3.375 GM in SODIUM CHLORIDE 0.9% 100 ML IVPB SCH (16:46)
[2025-03-19 16:59] LABS: Appearance,Urine Clear (Clear); Bacteria,Urine Rare /hpf; Bilirubin,Urine Negative (Negative); Blood,Urine Negative (Negative); Color,Urine Colorless; Glucose,Urine (UA) 3+ (Negative); Ketones,Urine Negative (Negative); Leukocyte Esterase,Urine Trace (Negative); Nitrite,Urine Negative (Negative); PH, Urine 5.5 (5.0-8.0); Protein,Urine Negative (Negative); RBC,Urine 1 /hpf (0-5); Specific Gravity,Urine 1.008 (1.001-1.035); Urobilinogen,Urine <2.0 mg/dL (<2.0); WBC,Urine 5 /hpf (0-5)
[2025-03-19] MEDS: POTASSIUM CHLORIDE ER 20 MEQ TAB.ER PO SCH (17:53)
--- NOTE | 2025-03-19 20:33 | PN ---
PROGRESS NOTE DATE OF SERVICE: 03/19/2025 SUBJECTIVE: This 79-year-old gentleman was admitted with sepsis, fever, also had right foot and leg cellulitis. The patient also had gram-negative from the UTI, which was proven to be Proteus mirabilis with some resistance. PHYSICAL EXAMINATION: VITAL SIGNS: Pulse is 67, blood pressure 130/60, and respirations 18. CHEST: Clear to auscultation. CARDIOVASCULAR: S1, S2. ABDOMEN: Soft. NERVOUS SYSTEM: Diffusely weak. LABORATORY DATA: WBC 14.9. Rest of the labs are noted. ASSESSMENT: 1. Sepsis with fever and leukocytosis from right foot cellulitis, rule out osteomyelitis. 2. Proteus mirabilis urinary tract infection. 3. History of chest pain. Mildly elevated troponin. Myocardial infarction ruled out. Rule out coronary artery disease. 4. Hypothyroidism. 5. Paroxysmal atrial fibrillation. 6. Dementia. 7. Multiple complex medical issues. RECOMMENDATIONS: Recommend to continue current management and symptomatic treatment. Continue the antibiotics, repeat labs. Replace potassium. Bone scan with possible osteomyelitis. Guarded prognosis. Further condition to follow. MMODL / IJN: [id number] /
[2025-03-19] MEDS: APIXABAN 5 MG TAB PO SCH (21:31)
[2025-03-20 08:11] LABS: Basophils # (A) 0.08 X 10*3/uL (0.00-0.10); Basophils % (A) 0.8 %; Eosinophils # (A) 0.25 X 10*3/uL (0.04-0.35); Eosinophils % (A) 2.4 %; HCT 32.7 % (39.6-50.0); HGB 9.5 g/dL (13.0-17.0); Lymphocytes # (A) 1.39 X 10*3/uL (0.90-5.00); Lymphocytes % (A) 13.6 %; MCH 22.1 pg (27.0-32.0); MCHC 29.1 g/dL (32.0-37.0); MCV 76.2 FL (80.0-97.0); Mean Platelet Volume 11.3 FL (9.5-12.2); Monocytes # (A) 0.82 X 10*3/uL (0.20-1.00); NRBC Per 100 WBC 0.02 X 10*3/uL (0.00-0.01); Neutrophils # (A) 7.56 X 10*3/uL (1.80-7.70); Neutrophils % (A) 74.1 %; Platelet Count 207 X 10*3/uL (140-440); RBC 4.29 X 10*6/uL (4.40-5.60); RDW 18.8 % (11.5-14.5); WBC 10.21 X 10*3/uL (4.50-10.00)
[2025-03-20 08:30] LABS: ALT 27 U/L (10-49); AST 32 U/L (14-35); Albumin 3.1 g/dL (3.8-4.9); Albumin/Globulin Ratio 1.11 Ratio (1.60-3.17); Alkaline Phosphatase 85 U/L (41-126); BUN/Creat Ratio 22.09 Ratio (12.00-20.00); Blood Urea Nitrogen 24.3 mg/dL (9.0-27.0); Calcium 7.4 mg/dL (8.7-10.3); Chloride 110 mmol/L (96-109); Globulin 2.8 g/dL (1.6-3.3); Glucose 90 mg/dL (70-110); Potassium 3.2 mmol/L (3.5-5.5); Sodium 143 mmol/L (135-145); Total Bilirubin 0.7 mg/dL (0.3-1.2); Total Protein 5.9 g/dL (6.2-8.2)
[2025-03-20] MEDS ORDERED: Potassium Replacement Protocol 1 EACH MISC MISCELLANE PRN ×2 (13:34→13:39)
[2025-03-20] MEDS ORDERED: Magnesium Replacement Protocol 1 EACH MISC MISCELLANE PRN (13:34)
--- NOTE | 2025-03-20 15:26 | NM ---
EXAMINATION TYPE: NM bone 3 phase DATE OF EXAM: 03/20/2025 COMPARISON: Plain film 03/16/2025 CLINICAL INDICATION: Male, 79 years old with history of osteo rt foot; Triple phase bone scintigraphy was performed following the injection of 24.2 mCi Tc 99m MDP. Immedia te images and 5.5 hours post injection images acquired. FINDINGS: Blood flow: There is increased blood flow to the right foot compared to the left. Blood pool: Diffuse uptake throughout the right foot compared to the left foot. This extends to the p roximal calf level.. Static images: Focal uptake are not identified on static images. Mild diffuse uptake is on the right compared to the left. IMPRESSION: 1. Clinical correlation for right lower extremity soft tissue infection. Differential diagnosis could include reflex sympathetic dystrophy [facility], , 03/20/2025 3:24 PM
--- NOTE | 2025-03-20 15:56 | P.PN ---
Subjective Progress Note Date: 03/19/25 Principal diagnosis: Reason for follow-up is sepsis/cellulitis/UTI Patient is a 59-year-old male with a past medical history significant forAtrial Fibrillation, Dementia, Deep Vein Thrombosis (DVT), GERD/Reflux, Hyperlipidemia, Hypertension, Vascular Disorder, Augmentin be changed, dementia [facility] resident patient has been sent to the concerning for chest disco mfort patient also noted to be septic with concern for right lower extremity cellulitis plus concern for UTI prompting this consultation. On today's evaluation that is 03/19/2025, Patient is afebrile this morning patient denies having any chest pain shortness of breath or cough, the patient is currently on room air, patient denies any abdominal pain no diarrhea no nausea no vomiting Urine is growing a drug-resistant Proteus mirabilis blood cultures are pending, white count did improve down to 14,000 Objective - Vital Signs Vital signs: Vital Signs Temp 98.3 F 03/19/25 07:00 Pulse 68 03/19/25 08:02 Resp 18 03/19/25 07:00 BP 136/66 03/19/25 07:00 Pulse Ox 93 L 03/19/25 07:00 FiO2 Intake & Output 03/18/25 03/19/25 03/19/25 18:59 06:59 18:59 Intake Total 826 Output Total 202 100 Balance 624 -100 Intake: Oral 826 Output: Urine 100 Post Void Residual 202 Other: Voiding Method External Catheter External Catheter Diaper External Catheter # Voids 1 1 # Bowel Movements 1 1 - Exam GENERAL DESCRIPTION: An elderly male lying in bed in no distress RESPIRATORY SYSTEM: Unlabored breathing , decreased breath sounds at bases HEART: S1 S2 regular rate and rhythm , ABDOMEN: Soft , no tenderness EXTREMITIES: Right leg swelling redness slightly decreased - Labs CBC & Chem 7: 03/19/25 04:58 03/19/25 04:58 Labs: Abnormal Lab Results - Last 24 Hours (Table) 03/19/25 03/19/25 Range/Units 04:58 04:58 WBC 14.96 H (4.50-10.00) X 10*3/uL RBC 4.26 L (4.40-5.60) X 10*6/uL Hgb 9.5 L (13.0-17.0) g/dL Hct 31.5 L (39.6-50.0) % MCV 73.9 L (80.0-97.0) FL MCH 22.3 L (27.0-32.0) pg MCHC 30.2 L (32.0-37.0) g/dL RDW 18.5 H (11.5-14.5) % Immature Gran # 0.13 H (0.00-0.04) X 10*3/uL Neutrophils # 12.53 H (1.80-7.70) X 10*3/uL Potassium 3.0 L (3.5-5.5) mmol/L Carbon Dioxide 21.0 L (21.6-31.8) mmol/L BUN 30.3 H (9.0-27.0) mg/dL Est GFR (CKD-EPI) 55 L (>=60) BUN/Creatinine Ratio 23.31 H (12.00-20.00) Ratio Calcium 7.3 L (8.7-10.3) mg/dL Microbiology - Last 24 Hours (Table) 03/16/25 18:01 Blood Culture - Preliminary Blood 03/16/25 14:51 Urine Culture - Final Urine,Voided Proteus mirabilis Assessment and Plan (1) Sepsis Current Visit: Yes Status: Acute Code(s): A41.9 - SEPSIS, UNSPECIFIED ORGANISM SNOMED Code(s): 77111154 (2) Cellulitis of right leg Current Visit: Yes Status: Acute Code(s): L03.115 - CELLULITIS OF RIGHT LOWER LIMB SNOMED Code(s): 53876436579548301 (3) UTI (urinary tract infection) Current Visit: Yes Status: Acute Code(s): N39.0 - URINARY TRACT INFECTION, SITE NOT SPECIFIED SNOMED Code(s): 16910605 Plan: 1patient presented to hospital with sepsis in this patient who did have a fever elevated white count meeting criteria for the SIRS/sepsis source is the right foot wound with secondary cellulitis of the right lower extremity patient also h ave significantly positive UA with mental status changes a component of UTI not entirely excluded. Keeping in mind patient is a [facility] resident will need to cover for the MRSA 2patient noticed to have worsening of his kidney function which did improve after antibiotic has been switched over to daptomycin urine is growing a drug- resistant Proteus we will repeat his UA switch antibiotic to Zosyn and monitor clinical course closely Dictation was produced using [employer] dictation software. please excuse any grammatical, word or spelling errors.
[2025-03-20] MEDS: POTASSIUM CHLORIDE ER 20 MEQ TAB.ER PO SCH (16:14)
[2025-03-20] MEDS: ACETAMINOPHEN TAB 325 MG TAB PO PRN (20:51)
--- NOTE | 2025-03-21 00:45 | PN ---
PROGRESS NOTE DATE OF SERVICE: 03/20/2025 SUBJECTIVE: This 79-year-old gentleman admitted with possible sepsis, is being evaluated to rule out the infection or cellulitis on the right foot. The patient is on broad-spectrum IV antibiotics. Urine culture showed Proteus. PHYSICAL EXAMINATION: VITAL SIGNS: Pulse is 60, mildly confused, blood pressure 108/52, respirations 18. CHEST: Clear to auscultation. CARDIOVASCULAR: S1, S2. ABDOMEN: Soft. LEGS: Right foot is edematous, cellulitis, redness, black discoloration and some necrotic area also present. LABORATORY DATA: WBC 10.21. Potassium noted. ASSESSMENT: 1. Sepsis with fever leukocytosis from the right foot, cellulitis rule out osteomyelitis or abscess. 2. Proteus mirabilis urinary tract infection. 3. History of chest pain with mildly elevated troponin. Myocardial infarction ruled out. Rule out coronary disease. 4. Hypothyroidism. 5. Paroxysmal atrial fibrillation. 6. Dementia. 7. Multiple complex medical issues. RECOMMENDATIONS: Recommend to continue current management and symptomatic treatment. Otherwise, at this time, continue the antibiotics. Repeat labs. Vascular Surgery, Infectious Disease evaluations. Guarded prognosis because of the multiple complex medical issues and further recommendations to follow. MMODL / IJN: [id number] /
--- NOTE | 2025-03-21 04:54 | PN ---
PROGRESS NOTE SUBJECTIVE: This is an 79-year-old gentleman known to me from the past. The patient came with history of chest pain. The patient has been evaluated by the Cardiology. I was consulted. The patient has marked cellulitis and swelling of the right lower extremity, and also there is a chronic wound on the dorsum aspect of the foot. MEDICAL HISTORY: History of AFib, on Eliquis, history of dementia. PHYSICAL EXAMINATION: GENERAL: On examination, the patient was seen in his room. NECK: Supple. No bruits appreciated. CHEST: Clear. Good air entry in both lungs. First and second sounds present. ABDOMEN: Soft, nontender. VASCULAR: Femorals are 1+ bilateral, DP 1+. Right lower extremity has marked swelling with marked cellulitis, and also there is a wound on the dorsum aspect of the foot with some drainage noted. PLAN: Debridement and deep culture. MMODL / IJN: [id number] /
[2025-03-21 08:37] LABS: BUN/Creat Ratio 19.85 Ratio (12.00-20.00); Blood Urea Nitrogen 25.8 mg/dL (9.0-27.0); Calcium 7.6 mg/dL (8.7-10.3); Carbon Dioxide 21.1 mmol/L (21.6-31.8); Chloride 110 mmol/L (96-109); Glucose 93 mg/dL (70-110); Magnesium 1.9 mg/dL (1.5-2.4); Potassium 3.6 mmol/L (3.5-5.5); Sodium 143 mmol/L (135-145)
--- NOTE | 2025-03-21 08:39 | PN ---
PROGRESS NOTE PREOPERATIVE DIAGNOSIS: Marked cellulitis of the right lower extremity with open wound on the dorsal aspect of the foot, measurement is 1 x 1 x 0.5 cm with some mild drainage noted. PROCEDURE: 1% lidocaine infiltrated in the wound using scissor. We did selective debridement down to subcutaneous tissue. Some of the tissue was taken for culture. Aerobic and anaerobic wound were clean, and this area irrigated with saline. No active bleeding was noted. We placed silver alginate and used Silvadene cream to the right lower extremity with the pressure dressing applied. Dressing should be changed every other day using Silvadene cream and silver alginate and 2 pillow elevation. The patient has ultrasound, which shows no evidence of DVT. MMODL / IJN: [id number] /
[2025-03-21 08:53] LABS: Basophils % (A) 1.2 %; Eosinophils # (A) 0.61 X 10*3/uL (0.04-0.35); Eosinophils % (A) 7.4 %; HGB 9.1 g/dL (13.0-17.0); Lymphocytes # (A) 1.57 X 10*3/uL (0.90-5.00); Lymphocytes % (A) 19.1 %; MCH 21.8 pg (27.0-32.0); MCHC 29.4 g/dL (32.0-37.0); MCV 74.3 FL (80.0-97.0); Mean Platelet Volume 11.6 FL (9.5-12.2); Monocytes # (A) 0.83 X 10*3/uL (0.20-1.00); Monocytes % (A) 10.1 %; NRBC Per 100 WBC 0.02 X 10*3/uL (0.00-0.01); Neutrophils # (A) 4.74 X 10*3/uL (1.80-7.70); Neutrophils % (A) 57.7 %; Platelet Count 217 X 10*3/uL (140-440); RBC 4.17 X 10*6/uL (4.40-5.60); RDW 18.7 % (11.5-14.5); WBC 8.22 X 10*3/uL (4.50-10.00)
--- NOTE | 2025-03-21 12:39 | P.PN ---
Subjective Progress Note Date: 03/20/25 Principal diagnosis: Reason for follow-up is sepsis/cellulitis/UTI Patient is a 59-year-old male with a past medical history significant forAtrial Fibrillation, Dementia, Deep Vein Thrombosis (DVT), GERD/Reflux, Hyperlipidemia, Hypertension, Vascular Disorder, Augmentin be changed, dementia long-term resident patient has been sent to the concerning for chest disco mfort patient also noted to be septic with concern for right lower extremity cellulitis plus concern for UTI prompting this consultation. On today's evaluation that is 03/20/2025,the patient denies any fever or any chills, patient is breathing comfortably on room air, the patient denies chest pain shortness of breath and no significant cough, patient denies abdominal pain, no nausea vomiting or diarrhea circumventing of pain to the right lower extremity. Patient white count is down to 10.21 creatinine is 1.1 Objective - Vital Signs Vital signs: Vital Signs Temp 97.9 F 03/20/25 14:31 Pulse 68 03/20/25 14:31 Resp 18 03/20/25 14:31 BP 119/82 03/20/25 14:31 Pulse Ox 97 03/20/25 14:31 FiO2 Intake & Output 03/19/25 03/20/25 03/20/25 18:59 06:59 18:59 Intake Total 118 Output Total 75 Balance -75 118 Intake: Oral 118 Output: Urine 75 Other: Voiding Method Diaper Diaper Diaper External Catheter # Voids 1 2 4 # Bowel Movements 1 - Exam GENERAL DESCRIPTION: An elderly male lying in bed in no distress RESPIRATORY SYSTEM: Unlabored breathing , decreased breath sounds at bases HEART: S1 S2 regular rate and rhythm , ABDOMEN: Soft , no tenderness EXTREMITIES: Right leg swelling redness slightly decreased - Labs CBC & Chem 7: 03/21/25 05:25 03/21/25 05:25 Labs: Abnormal Lab Results - Last 24 Hours (Table) 03/19/25 03/20/25 03/20/25 Range/Units 16:16 04:47 04:47 WBC 10.21 H (4.50-10.00) X 10*3/uL RBC 4.29 L (4.40-5.60) X 10*6/uL Hgb 9.5 L (13.0-17.0) g/dL Hct 32.7 L (39.6-50.0) % MCV 76.2 L (80.0-97.0) FL MCH 22.1 L (27.0-32.0) pg MCHC 29.1 L (32.0-37.0) g/dL RDW 18.8 H (11.5-14.5) % Immature Gran # 0.11 H (0.00-0.04) X 10*3/uL NRBC/100 WBC Diff 0.02 H (0.00-0.01) X 10*3/uL Potassium 3.2 L (3.5-5.5) mmol/L Chloride 110 H (96-109) mmol/L Carbon Dioxide 21.0 L (21.6-31.8) mmol/L BUN/Creatinine Ratio 22.09 H (12.00-20.00) Ratio Calcium 7.4 L (8.7-10.3) mg/dL Total Protein 5.9 L (6.2-8.2) g/dL Albumin 3.1 L (3.8-4.9) g/dL Albumin/Globulin Ratio 1.11 L (1.60-3.17) Ratio Urine Glucose (UA) 3+ H (Negative) Ur Leukocyte Esterase Trace H (Negative) Urine Bacteria Rare H (None) /hpf Microbiology - Last 24 Hours (Table) 03/16/25 18:01 Blood Culture - Preliminary Blood Assessment and Plan (1) Sepsis Current Visit: Yes Status: Acute Code(s): A41.9 - SEPSIS, UNSPECIFIED ORGANISM SNOMED Code(s): 04478459 (2) Cellulitis of right leg Current Visit: Yes Status: Acute Code(s): L03.115 - CELLULITIS OF RIGHT LOWER LIMB SNOMED Code(s): 40993376126904134 (3) UTI (urinary tract infection) Current Visit: Yes Status: Acute Code(s): N39.0 - URINARY TRACT INFECTION, SITE NOT SPECIFIED SNOMED Code(s): 57118253 Plan: 1patient presented to hospital with sepsis in this patient who did have a fever elevated white count meeting criteria for the SIRS/sepsis source is the right foot wound with secondary cellulitis of the right lower extremity patient also have significantly positive UA with mental status changes a component of UTI not entirely excluded. Keeping in mind patient is a long-term resident will need to cover for the MRSA 2local cultures obtained which are currently pending urine positive for drug- resistant Proteus 3patient is afebrile white count is trending down to continue with daptomycin and Zosyn and monitor clinical course closely Dictation was produced using [employer] dictation software. please excuse any grammatical, word or spelling errors. Time with Patient: Less than 30
--- NOTE | 2025-03-21 12:40 | P.PN ---
Subjective Progress Note Date: 03/21/25 Principal diagnosis: Reason for follow-up is sepsis/cellulitis/UTI Patient is a 59-year-old male with a past medical history significant forAtrial Fibrillation, Dementia, Deep Vein Thrombosis (DVT), GERD/Reflux, Hyperlipidemia, Hypertension, Vascular Disorder, Augmentin be changed, dementia [facility] resident patient has been sent to the concerning for chest disco mfort patient also noted to be septic with concern for right lower extremity cellulitis plus concern for UTI prompting this consultation. On today's evaluation that is 03/21/2025,the patient remains to be afebrile, patient is on room air not requiring supplemental oxygen and denies any shortness of breath no chest pain or cough.Patient denies having any nausea or vomiting, no abdominal pain and did have diarrhea reported by the nurse aide. Patient white count normalized to 8.22, creatinine is 1.3 Objective - Vital Signs Vital signs: Vital Signs Temp 98.0 F 03/21/25 07:13 Pulse 72 03/21/25 07:13 Resp 17 03/21/25 09:27 BP 105/59 03/21/25 07:13 Pulse Ox 99 03/21/25 07:13 FiO2 Intake & Output 03/20/25 03/21/25 03/21/25 18:59 06:59 18:59 Intake Total 236 Balance 236 Intake: Oral 236 Other: Voiding Method Diaper Diaper Diaper # Voids 4 1 # Bowel Movements 1 - Exam GENERAL DESCRIPTION: An elderly male lying in bed in no distress RESPIRATORY SYSTEM: Unlabored breathing , decreased breath sounds at bases HEART: S1 S2 regular rate and rhythm , ABDOMEN: Soft , no tenderness EXTREMITIES: Right leg swelling redness slightly decreased - Labs CBC & Chem 7: 03/21/25 05:25 03/21/25 05:25 Labs: Abnormal Lab Results - Last 24 Hours (Table) 03/21/25 03/21/25 Range/Units 05:25 05:25 RBC 4.17 L (4.40-5.60) X 10*6/uL Hgb 9.1 L (13.0-17.0) g/dL Hct 31.0 L (39.6-50.0) % MCV 74.3 L (80.0-97.0) FL MCH 21.8 L (27.0-32.0) pg MCHC 29.4 L (32.0-37.0) g/dL RDW 18.7 H (11.5-14.5) % Immature Gran # 0.37 H (0.00-0.04) X 10*3/uL Eosinophils # 0.61 H (0.04-0.35) X 10*3/uL NRBC/100 WBC Diff 0.02 H (0.00-0.01) X 10*3/uL Chloride 110 H (96-109) mmol/L Carbon Dioxide 21.1 L (21.6-31.8) mmol/L Est GFR (CKD-EPI) 55 L (>=60) Calcium 7.6 L (8.7-10.3) mg/dL Microbiology - Last 24 Hours (Table) 03/20/25 15:59 Gram Stain - Preliminary Foot - Right Wound Culture - Preliminary Assessment and Plan (1) Sepsis Current Visit: Yes Status: Acute Code(s): A41.9 - SEPSIS, UNSPECIFIED ORGANISM SNOMED Code(s): 83145742 (2) Cellulitis of right leg Current Visit: Yes Status: Acute Code(s): L03.115 - CELLULITIS OF RIGHT LOWER LIMB SNOMED Code(s): 75903864757980078 (3) UTI (urinary tract infection) Current Visit: Yes Status: Acute Code(s): N39.0 - URINARY TRACT INFECTION, SITE NOT SPECIFIED SNOMED Code(s): 48429602 Plan: 1patient presented to hospital with sepsis in this patient who did have a fever elevated white count meeting criteria for the SIRS/sepsis source is the right foot wound with secondary cellulitis of the right lower extremity patient also have significantly positive UA with mental status changes a component of UTI not entirely excluded. Keeping in mind patient is a [facility] resident will need to cover for the MRSA 2local cultures obtained which are currently pending urine positive for drug- resistant Proteus 3patient is afebrile white count has normalized 4patient continue with daptomycin and Zosyn while waiting for the right lower extremity cultures to be finalized to determine discharge antibiotics Dictation was produced using [employer] dictation software. please excuse any grammatical, word or spelling errors. Time with Patient: Less than 30
--- NOTE | 2025-03-21 13:42 | PN ---
PROGRESS NOTE DATE OF SERVICE: 03/21/2025 SUBJECTIVE: This is an 79-year-old gentleman admitted with right foot cellulitis, underwent bedside debridement by Dr. Jackson. Cultures are pending. PHYSICAL EXAMINATION: VITAL SIGNS: Pulse is 72, blood pressure 105/59, and respirations 17. CHEST: Clear to auscultation. CARDIOVASCULAR: S1, S2. ABDOMEN: Soft and obese. LEGS: Infection and cellulitis present. LABORATORY DATA: Reviewed. Urine culture showed Proteus. ASSESSMENT: 1. Sepsis with fever, leukocytosis, and the right foot cellulitis. 2. Proteus mirabilis urinary tract infection. 3. History of chest pain with mildly elevated troponin. Myocardial infarction ruled out. Rule out coronary artery disease. 4. Hypothyroidism. 5. Paroxysmal atrial fibrillation. 6. Dementia. 7. Multiple complex medical issues. RECOMMENDATIONS AND DISCUSSION: Recommend to continue current management and continue symptomatic treatment. Continue with the antibiotics. Closely follow with Infectious Disease and Vascular Surgery. Guarded prognosis, because of multiple complex medical issues. Further recommendations to follow. MMODL / IJN: [id number] /
--- NOTE | 2025-03-22 09:11 | P.CONS ---
History of Present Illness - Reason for Consult Consult date: 03/22/25 wound care - History of Present Illness This is a 79-year-old patient being seen on [address] for a pressure ulceration to the buttocks. At this time no open ulcerations noted there is excoriation and irritation present. Patient has a stage I pressure ulcer to the coccyx. Utilize zinc barrier cream as needed. Review Of Systems: Constitutional: No fever, no chills, no night sweats. No weight change. No weakness, fatigue or lethargy. No daytime sleepiness. Integumentary:reports wounds, no lesions. No rash or pruritus. No unusual bruising. No change in hair or nails. Physical exam: General Appearance: Alert, cooperative, no distress, appears stated age. Skin: See HPI all other Skin color, texture, tugor normal, no rashes or lesions. Neurologic: Alert oriented x3 Assessment: 1. Stage I pressure ulcer coccyx Plan: 1. Apply zinc barrier cream daily and as needed Thank you for the consultation any questions please contact the wound care center DNP note has been reviewed and discussed with Dr. Mccord and the impression and plan of care has been directed as dictated. Past Medical History Past Medical History: Atrial Fibrillation, Dementia, Deep Vein Thrombosis (DVT), GERD/Reflux, Hyperlipidemia, Hypertension, Vascular Disorder Additional Past Medical History / Comment(s): anemia, 02 2l/min per n/c prn for shortness of breath,hypothyroidism, frequent micturation, wound josemanuel feet dry skin dermatitis, per [facility] pt had a pne vaccine in past but not sure of date. pt uses walker with 1 assist and a w/c chaser.pt has intellectual disabilty-[facility] staff stated pt able to read/write some .needs assist to set up food tray and over see. use short simple instructions History of Any Multi-Drug Resistant Organisms: MRSA Year Discovered:: 07/31/18 MDRO Source:: LEFT FOOT Past Surgical History: Unable to Obtain Additional Past Surgical History / Comment(s): brandon filter Past Anesthesia/Blood Transfusion Reactions: Unable to Obtain Past Psychological History: Anxiety, Depression Additional Psychological History / Comment(s): developmentally delayed, mentally challenged, dementia Past Alcohol Use History: None Reported Past Drug Use History: None Reported - Past Family History Mother Family Medical History: Unable to Obtain Father Family Medical History: Unable to Obtain Medications and Allergies Home Medications Medication Instructions Recorded Confirmed Type Levothyroxine Sodium [Synthroid] 50 mcg PO DAILY 04/17/18 03/16/25 History Potassium Chloride [K-Tab ER] 10 meq PO DAILY 04/17/18 03/16/25 History Torsemide [Demadex] 20 mg PO DAILY 04/17/18 03/16/25 History Sertraline [Zoloft] 25 mg PO DAILY 06/19/18 03/16/25 History Acetaminophen [Tylenol Arthritis] 650 mg PO Q6H PRN 03/16/25 03/16/25 History Apixaban [Eliquis] 5 mg PO BID 03/16/25 03/16/25 History Aspirin EC [Ecotrin Low Dose] 81 mg PO DAILY 03/16/25 03/16/25 History Empagliflozin [Jardiance] 10 mg PO DAILY 03/16/25 03/16/25 History Esomeprazole Magnesium [NexIUM] 20 mg PO DAILY 03/16/25 03/16/25 History Miconazole 2% Powder 1 applic TOPICAL BID 03/16/25 03/16/25 History Multivit-Min/FA/Lycopen/Lutein 1 tab PO DAILY 03/16/25 03/16/25 History [Centrum Silver Tablet] amLODIPine [Norvasc] 5 mg PO DAILY 03/16/25 03/16/25 History carvediloL [Coreg] 6.25 mg PO BID 03/16/25 03/16/25 History Allergies Allergy/AdvReac Type Severity Reaction Status Date / Time No Known Allergies Allergy Verified 03/16/25 17:54 Physical Exam Vitals: Vital Signs Temp Pulse Resp BP Pulse Ox 03/22/25 07:15 97.8 F 67 17 115/59 98 03/22/25 02:00 97.7 F 77 16 97 03/21/25 20:00 16 03/21/25 19:41 98.5 F 60 15 118/60 96 03/21/25 13:10 97.5 F L 57 L 17 112/68 96 03/21/25 09:27 17 Intake and Output 03/21/25 03/22/25 03/22/25 22:59 06:59 14:59 Intake Total 600 Output Total 100 Balance 600 -100 Intake: Oral 600 Output: Urine 100 Other: Voiding Method Diaper # Voids 1 # Bowel Movements 3 Results CBC & Chem 7: 03/21/25 05:25 03/21/25 05:25 Labs: Microbiology - Last 24 Hours (Table) 03/16/25 18:01 Blood Culture - Final Blood 03/20/25 15:59 Gram Stain - Preliminary Foot - Right Wound Culture - Preliminary Assessment and Plan (1) Pressure ulcer of coccygeal region, stage 1 Current Visit: Yes Status: Acute Code(s): L89.151 - PRESSURE ULCER OF SACRAL REGION, STAGE 1 SNOMED Code(s): 67362448692083737
--- NOTE | 2025-03-22 16:09 | P.PN ---
Subjective Progress Note Date: 03/22/25 Principal diagnosis: Reason for follow-up is sepsis/cellulitis/UTI Patient is a 59-year-old male with a past medical history significant forAtrial Fibrillation, Dementia, Deep Vein Thrombosis (DVT), GERD/Reflux, Hyperlipidemia, Hypertension, Vascular Disorder, Augmentin be changed, dementia residential resident patient has been sent to the concerning for chest disco mfort patient also noted to be septic with concern for right lower extremity cellulitis plus concern for UTI prompting this consultation. On today's evaluation that is 03/22/2025, the patient continues to be afebrile, the patient is on room air and breathing comfortably, the Pt denies having any chest pain or cough, the patient denies having any abdominal pain no vomiting or any diarrhea and denies any worsening pain to the right lower extremity. No new lab has been obtained today culture from the right foot is growing presumptive MRSA Objective - Vital Signs Vital signs: Vital Signs Temp 97.8 F 03/22/25 07:15 Pulse 67 03/22/25 07:15 Resp 17 03/22/25 07:15 BP 115/59 03/22/25 07:15 Pulse Ox 98 03/22/25 07:15 FiO2 Intake & Output 03/21/25 03/22/25 03/22/25 18:59 06:59 18:59 Intake Total 840 480 Output Total 100 Balance 840 -100 480 Intake: Oral 840 480 Output: Urine 100 Other: Voiding Method Diaper Diaper Diaper # Voids 5 1 # Bowel Movements 3 - Exam GENERAL DESCRIPTION: An elderly male lying in bed in no distress RESPIRATORY SYSTEM: Unlabored breathing , decreased breath sounds at bases HEART: S1 S2 regular rate and rhythm , ABDOMEN: Soft , no tenderness EXTREMITIES: Right leg swelling redness slightly decreased - Labs CBC & Chem 7: 03/21/25 05:25 03/21/25 05:25 Labs: Microbiology - Last 24 Hours (Table) 03/16/25 18:01 Blood Culture - Final Blood 03/20/25 15:59 Gram Stain - Preliminary Foot - Right Wound Culture - Preliminary Assessment and Plan (1) Sepsis Current Visit: Yes Status: Acute Code(s): A41.9 - SEPSIS, UNSPECIFIED ORGANISM SNOMED Code(s): 19200082 (2) Cellulitis of right leg Current Visit: Yes Status: Acute Code(s): L03.115 - CELLULITIS OF RIGHT LOWER LIMB SNOMED Code(s): 64509700655134692 (3) UTI (urinary tract infection) Current Visit: Yes Status: Acute Code(s): N39.0 - URINARY TRACT INFECTION, SITE NOT SPECIFIED SNOMED Code(s): 91402504 Plan: 1patient presented to hospital with sepsis in this patient who did have a fever elevated white count meeting criteria for the SIRS/sepsis source is the right foot wound with secondary cellulitis of the right lower extremity patient also have significantly positive UA with mental status changes a component of UTI not entirely excluded. Keeping in mind patient is a residential resident will need to cover for the MRSA 2local cultures obtained which are currently pending urine positive for drug- resistant Proteus 3patient is afebrile white count has normalized 4patient right foot culture growing presumptive MRSA and stepped for the patient is currently being treated with daptomycin and Zosyn for his drug-res istant UTI Dictation was produced using [employer] dictation software. please excuse any grammatical, word or spelling errors. Time with Patient: Less than 30
--- NOTE | 2025-03-22 20:08 | CDI ---
Documentation Clarification Form Date: 03/22/2025 07:24:20 PM From: Shahnaz Padgett Phone: [phone] Admit Date: 03/18/2025 09:03:00 AM Patient Name: Paco Whaley Visit Number: [id number] Discharge Date: ATTENTION: The Clinical Documentation Specialists (CDI) and [facility] Coding Staff appreciate your assistance in clarifying documentation. Please respond to the clarification below the line at the bottom and electronically sign. The CDI & [facility] Coding staff will review the response and follow-up if needed. Please note: Queries are made part of the Legal Health Record. If you have any questions, please contact the author of this message via ITS. DoctorLeonardo Jackson A debridement is documented on in your progress on 03/20/25. Unfortunately, some required elements have not been documented. Additional clarification regarding the procedure is requested. History/Risk Factors: Chronic wound dorsum aspect of right foot, vascular disorder, dermatitis Clinical Indicators: Marked cellulitis of the right lower extremity with open wound on the dorsal aspect of measurement is 1 x 1 x 0.5 cm with some mild drainage noted. Treatment: 03/20 Debridement Dressing change every other day using Silvadene cream and silver alginate and 2 pillow elevation Please clarify the procedure performed: [ x] Excisional debridement (the removal of necrotic, devitalized tissue or slough by means of cutting away of tissue) Instrument: ___scalpel Nature of the tissue removed ___devitalized____ Appearance of the wound down to bleeding tissue____ [ ] Non-excisional debridement (the removal of necrotic, devitalized tissue or slough by means of flushing, brushing, or washing. (Irrigation) Instrument: Nature of the tissue removed Appearance of the wound [ ] Other; please specify Dr. Jackson Five elements required for accurate and compliant documentation of a debridement: -Technique used (e.g., excisional, excised, cutting, brushing, jet lavage etc.) -Instrument(s) used (e.g., scalpel, curette, etc.) -Nature of the tissue removed (e.g., necrotic, devitalized tissues, non-viable tissue, etc.) -Appearance and size of the wound (e.g., down to fresh bleeding tissue, 7cm x 10cm, etc.) -Depth of the debridement* (e.g., skin, subcutaneous tissue, fascia, muscle, bone, etc.) (Template Last Revised: June 2024) MTDD
--- NOTE | 2025-03-23 14:36 | P.PN ---
Subjective Progress Note Date: 03/23/25 Principal diagnosis: Reason for follow-up is sepsis/cellulitis/UTI Patient is a 59-year-old male with a past medical history significant forAtrial Fibrillation, Dementia, Deep Vein Thrombosis (DVT), GERD/Reflux, Hyperlipidemia, Hypertension, Vascular Disorder, Augmentin be changed, dementia [place] [facility] resident patient has been sent to the concerning for chest disco mfort patient also noted to be septic with concern for right lower extremity cellulitis plus concern for UTI prompting this consultation. On today's evaluation that is 03/23/2024, patient did have a temperature of 98.3 F this morning and denies having any chills, patient is on room air and breathing comfortably no chest pain or cough, the patient did not have any nausea vomiting abdominal pain or any diarrhea or any worsening pain in the right lower extremity. Patient did not have a lab draw today right leg culture with MRSA Objective - Vital Signs Vital signs: Vital Signs Temp 98.3 F 03/23/25 02:00 Pulse 68 03/23/25 07:35 Resp 17 03/23/25 07:35 BP 154/76 03/23/25 07:35 Pulse Ox 95 03/23/25 07:35 FiO2 Intake & Output 03/22/25 03/23/25 03/23/25 18:59 06:59 18:59 Intake Total 1260 Balance 1260 Intake: Oral 1260 Other: Voiding Method Diaper Diaper # Voids 2 1 # Bowel Movements 2 - Exam GENERAL DESCRIPTION: An elderly male lying in bed in no distress RESPIRATORY SYSTEM: Unlabored breathing , decreased breath sounds at bases HEART: S1 S2 regular rate and rhythm , ABDOMEN: Soft , no tenderness EXTREMITIES: Right leg swelling redness slightly decreased - Labs CBC & Chem 7: 03/21/25 05:25 03/21/25 05:25 Labs: Microbiology - Last 24 Hours (Table) 03/20/25 15:59 Gram Stain - Preliminary Foot - Right Wound Culture - Preliminary Methicillin resist S. aureus Strep A 03/20/25 15:59 Anaerobic Culture - Preliminary Foot - Right Assessment and Plan (1) Sepsis Current Visit: Yes Status: Acute Code(s): A41.9 - SEPSIS, UNSPECIFIED ORGANISM SNOMED Code(s): 51661221 (2) Cellulitis of right leg Current Visit: Yes Status: Acute Code(s): L03.115 - CELLULITIS OF RIGHT LOWER LIMB SNOMED Code(s): 74100238057594758 (3) UTI (urinary tract infection) Current Visit: Yes Status: Acute Code(s): N39.0 - URINARY TRACT INFECTION, SITE NOT SPECIFIED SNOMED Code(s): 25949579 Plan: 1patient presented to hospital with sepsis in this patient who did have a fever elevated white count meeting criteria for the SIRS/sepsis source is the right foot wound with secondary cellulitis of the right lower extremity patient also have significantly positive UA with mental status changes a component of UTI not entirely excluded. Keeping in mind patient is a [place] [facility] resident will need to cover for the MRSA 2local cultures obtained which are currently growing MRSA and strep, urine positive for drug-resistant Proteus 3patient is afebrile white count has normalized as of 03/21/2025 4patient is currently being treated with daptomycin and Zosyn for his drug- resistant UTI, will need midline and outpatient IV antibiotics on discharge Dictation was produced using [employer] dictation software. please excuse any gramm atical, word or spelling errors. Time with Patient: Less than 30
--- NOTE | 2025-03-23 17:58 | P.PN ---
Subjective Progress Note Date: 03/22/25 79 years old male who was sent from senior care for possible chest pain Patient admitted from ER for chest pain when I saw the patient he was awake alert calm however he looks confused and poor historian. He did not complain to me from chest pain actually could not provide information However his right leg looks swollen red and tender and there is superficial ulcer on the dorsum of the right foot with dressing in place and some purulent discharge On admission he had a fever of 103. Labs showed leukocytosis of 18,000, hemoglobin 12.3, BMP and LFT were unremarkable. Urinalysis suspicious for infection and UTI X-ray of the right foot and right leg showing soft tissue swelling of the right foot and ulcer on the dorsum of the right foot. No evidence of fracture or gas border in the leg or right foot Ultrasound of the right leg is negative for DVT but showing right groin lymphadenopathy Chest x-ray reported as cardiomegaly with mild pulmonary vascular congestion D-dimer is negative at 0.46. Troponin negative times two 0.015 and 0.03, third 1 came back mildly positive at 0.043. Objective - Vital Signs Vital signs: Vital Signs Temp 97.8 F 03/22/25 07:15 Pulse 67 03/22/25 07:15 Resp 17 03/22/25 07:15 BP 115/59 03/22/25 07:15 Pulse Ox 98 03/22/25 07:15 FiO2 Intake & Output 03/21/25 03/22/25 03/22/25 18:59 06:59 18:59 Intake Total 840 480 Output Total 100 Balance 840 -100 480 Intake: Oral 840 480 Output: Urine 100 Other: Voiding Method Diaper Diaper Diaper # Voids 5 1 # Bowel Movements 3 - Exam GENERAL: The patient is alert and oriented x3, not in any acute distress. Well developed, well nourished. HEENT: Pupils are round and equally reacting to light. EOMI. No scleral icterus. No conjunctival pallor. Normocephalic, atraumatic. No pharyngeal erythema. No thyromegaly. CARDIOVASCULAR: S1 and S2 present. No murmurs, rubs, or gallops. PULMONARY: Chest is clear to auscultation, no wheezing , no crackles. ABDOMEN: Soft, nontender, nondistended, normoactive bowel sounds. No palpable organomegaly. MUSCULOSKELETAL: No joint swelling or deformity. -EXTREMITIES: No cyanosis, clubbing, or pedal edema. Right leg cellulitis including distal leg and right foot. Infected superficial wound on the dorsum of the right foot as well with minimal discharge NEUROLOGICAL: Gross neurological examination did not reveal any focal deficits. SKIN: No rashes. no petechiae. - Labs CBC & Chem 7: 03/21/25 05:25 03/21/25 05:25 Labs: Microbiology - Last 24 Hours (Table) 03/20/25 15:59 Gram Stain - Preliminary Foot - Right Wound Culture - Preliminary Presumptive MRSA Strep A 03/16/25 18:01 Blood Culture - Final Blood Assessment and Plan Assessment: Sepsis with fever and leukocytosis Right foot and leg cellulitis with infected wound on the dorsum of the right fo ot Acute urinary tract infection secondary to gram-negative bacilli Chest pain with mildly elevated troponin, cardiac causes ruled out most likely secondary to infection. Hypothyroidism Paroxysmal atrial fibrillation Dementia Hypertension Hyperlipidemia Chronic anemia Chronic hypoxic respiratory failure Plan: Continue with IV ceftriaxone Start normal sinus 75 mm/h H resume Eliquis Continue with Coreg and torsemide Hold Norvasc and Jardiance Cardiology consult is appreciated. No further cardiac workup Infectious disease consult Follow-up culture results Labs and medication were reviewed.. Continue same treatment. Continue with symptomatic treatment. Resume home medication. Monitor labs and vitals. DVT and GI prophylaxis. Further recommendations as per clinical course of the patient DVT prophylaxis: Subcutaneous heparin GI Prophylaxis: P Protonix Prognosis is guarded
--- NOTE | 2025-03-23 18:01 | P.PN ---
Subjective Progress Note Date: 03/23/25 79 years old male who was sent from long-term for possible chest pain Patient admitted from ER for chest pain when I saw the patient he was awake alert calm however he looks confused and poor historian. He did not complain to me from chest pain actually could not provide information However his right leg looks swollen red and tender and there is superficial ulcer on the dorsum of the right foot with dressing in place and some purulent discharge On admission he had a fever of 103. Labs showed leukocytosis of 18,000, hemoglobin 12.3, BMP and LFT were unremarkable. Urinalysis suspicious for infection and UTI X-ray of the right foot and right leg showing soft tissue swelling of the right foot and ulcer on the dorsum of the right foot. No evidence of fracture or gas border in the leg or right foot Ultrasound of the right leg is negative for DVT but showing right groin lymphadenopathy Chest x-ray reported as cardiomegaly with mild pulmonary vascular congestion D-dimer is negative at 0.46. Troponin negative times two 0.015 and 0.03, third 1 came back mildly positive at 0.043. 03/23/2025 Patient is seen and evaluated with staff at bedside; patient wants to go home; no specific complaints reported Vital signs are reviewed and stable Lab review last done on 03/21/2025 revealed WBC of 8.22, hemoglobin of 9.1 and platelet count of 217, sodium 143, potassium 3.6, BUN/creatinine of 25/1.3 -Patient is currently on IV daptomycin and Zosyn for MDR Proteus; wound culture is growing MRSA and strep - ID on board; recommending IV antibiotics at time of discharge; patient will need PICC line Objective - Vital Signs Vital signs: Vital Signs Temp 98.3 F 03/23/25 02:00 Pulse 68 03/23/25 07:35 Resp 17 03/23/25 07:35 BP 154/76 03/23/25 07:35 Pulse Ox 95 03/23/25 07:35 FiO2 Intake & Output 03/22/25 03/23/25 03/23/25 18:59 06:59 18:59 Intake Total 1260 Balance 1260 Intake: Oral 1260 Other: Voiding Method Diaper Diaper # Voids 2 1 # Bowel Movements 2 - Exam GENERAL: The patient is alert and oriented x3, not in any acute distress. Well developed, well nourished. HEENT: Pupils are round and equally reacting to light. EOMI. No scleral icterus. No conjunctival pallor. Normocephalic, atraumatic. No pharyngeal erythema. No thyromegaly. CARDIOVASCULAR: S1 and S2 present. No murmurs, rubs, or gallops. PULMONARY: Chest is clear to auscultation, no wheezing , no crackles. ABDOMEN: Soft, nontender, nondistended, normoactive bowel sounds. No palpable organomegaly. MUSCULOSKELETAL: No joint swelling or deformity. -EXTREMITIES: No cyanosis, clubbing, or pedal edema. Right leg cellulitis including distal leg and right foot. Infected superficial wound on the dorsum of the right foot as well with minimal discharge NEUROLOGICAL: Gross neurological examination did not reveal any focal deficits. SKIN: No rashes. no petechiae. - Labs CBC & Chem 7: 03/21/25 05:25 03/21/25 05:25 Labs: Microbiology - Last 24 Hours (Table) 03/20/25 15:59 Gram Stain - Preliminary Foot - Right Wound Culture - Preliminary Methicillin resist S. aureus Strep A 03/20/25 15:59 Anaerobic Culture - Preliminary Foot - Right Assessment and Plan Assessment: Sepsis with fever and leukocytosis Right foot and leg cellulitis with infected wound on the dorsum of the right foot Acute urinary tract infection secondary to gram-negative bacilli Chest pain with mildly elevated troponin, cardiac causes ruled out most likely secondary to infection. Hypothyroidism Paroxysmal atrial fibrillation Dementia Hypertension Hyperlipidemia Chronic anemia Chronic hypoxic respiratory failure Plan: Continue with IV ceftriaxone Start normal sinus 75 mm/h H resume Eliquis Continue with Coreg and torsemide Hold Norvasc and Jardiance Cardiology consult is appreciated. No further cardiac workup Infectious disease consult Follow-up culture results Labs and medication were reviewed.. Continue same treatment. Continue with symptomatic treatment. Resume home medication. Monitor labs and vitals. DVT and GI prophylaxis. Further recommendations as per clinical course of the patient DVT prophylaxis: Subcutaneous heparin GI Prophylaxis: P Protonix Prognosis is guarded
[2025-03-24 07:28] LABS: Basophils # (A) 0.09 10*3/uL (0.00-0.10); Basophils % (A) 1.2 %; Eosinophils # (A) 0.59 10*3/uL (0.04-0.35); Eosinophils % (A) 8.1 %; HCT 31.2 % (39.6-50.0); Lymphocytes # (A) 1.39 10*3/uL (0.90-5.00); Lymphocytes % (A) 19.1 %; MCH 22.2 pg (27.0-32.0); MCHC 29.8 g/dL (32.0-37.0); MCV 74.6 fL (80.0-97.0); Mean Platelet Volume 10.6 fL (9.5-12.2); Monocytes # (A) 0.64 10*3/uL (0.20-1.00); Monocytes % (A) 8.8 %; Neutrophils # (A) 4.12 10*3/uL (1.80-7.70); Neutrophils % (A) 56.7 %; Platelet Count 265 10*3/uL (140-440); RBC 4.18 10*6/uL (4.40-5.60); RDW 19.2 % (11.5-14.5); WBC 7.27 10*3/uL (4.50-10.00)
[2025-03-24 07:42] LABS: HGB 9.3 g/dL (13.0-17.0)
[2025-03-24 07:58] LABS: African American GFR (CKD) >90 (>60 ml/min/1.73 sqM); Anion Gap 7 mmol/L; Blood Urea Nitrogen 9 mg/dL (9-20); Calcium 7.7 mg/dL (8.4-10.2); Carbon Dioxide 25 mmol/L (22-30); Chloride 107 mmol/L (98-107); Glucose 92 mg/dL (74-99); Non-African American GFR(CKD) 83 (>60 ml/min/1.73 sqM); Sodium 139 mmol/L (137-145)
--- NOTE | 2025-03-24 14:54 | P.PN ---
Subjective Progress Note Date: 03/24/25 Principal diagnosis: Reason for follow-up is sepsis/cellulitis/UTI Patient is a 59-year-old male with a past medical history significant forAtrial Fibrillation, Dementia, Deep Vein Thrombosis (DVT), GERD/Reflux, Hyperlipidemia, Hypertension, Vascular Disorder, Augmentin be changed, dementia long term resident patient has been sent to the concerning for chest disco mfort patient also noted to be septic with concern for right lower extremity cellulitis plus concern for UTI prompting this consultation. On today's evaluation that is 03/24/2025, Patient is afebrile patient is currently on room air and denies having any shortness of breath, the patient denies any chest pain or cough, the patient denies any nausea vomiting did not have any abdominal pain and no diarrhea pain to the right lower extremity has decreased in intensity. Patient white count 7.27, creatinine 0.81 Objective - Vital Signs Vital signs: Vital Signs Temp 97.4 F L 03/24/25 07:47 Pulse 70 03/24/25 08:45 Resp 19 03/24/25 07:47 BP 113/52 03/24/25 07:47 Pulse Ox 97 03/24/25 07:47 FiO2 Intake & Output 03/23/25 03/24/25 03/24/25 18:59 06:59 18:59 Intake Total 540 Balance 540 Intake: Oral 540 Other: Voiding Method Diaper # Voids 5 3 - Exam GENERAL DESCRIPTION: An elderly male lying in bed in no distress RESPIRATORY SYSTEM: Unlabored breathing , decreased breath sounds at bases HEART: S1 S2 regular rate and rhythm , ABDOMEN: Soft , no tenderness EXTREMITIES: Right leg swelling redness slightly decreased - Labs CBC & Chem 7: 03/24/25 07:09 03/24/25 07:09 Labs: Abnormal Lab Results - Last 24 Hours (Table) 03/24/25 03/24/25 Range/Units 07:09 07:09 RBC 4.18 L (4.40-5.60) 10*6/uL Hgb 9.3 L D (13.0-17.0) g/dL Hct 31.2 L (39.6-50.0) % MCV 74.6 L (80.0-97.0) fL MCH 22.2 L (27.0-32.0) pg MCHC 29.8 L (32.0-37.0) g/dL RDW 19.2 H (11.5-14.5) % Immature Gran # 0.44 H (0.00-0.04) 10*3/uL Eosinophils # 0.59 H (0.04-0.35) 10*3/uL Potassium 3.0 L (3.5-5.1) mmol/L Calcium 7.7 L (8.4-10.2) mg/dL Microbiology - Last 24 Hours (Table) 03/20/25 15:59 Gram Stain - Final Foot - Right Wound Culture - Final Methicillin resist S. aureus Strep A 03/20/25 15:59 Anaerobic Culture - Final Foot - Right Assessment and Plan (1) Sepsis Current Visit: Yes Status: Acute Code(s): A41.9 - SEPSIS, UNSPECIFIED ORGANISM SNOMED Code(s): 05399777 (2) Cellulitis of right leg Current Visit: Yes Status: Acute Code(s): L03.115 - CELLULITIS OF RIGHT LOWER LIMB SNOMED Code(s): 48500751210986675 (3) UTI (urinary tract infection) Current Visit: Yes Status: Acute Code(s): N39.0 - URINARY TRACT INFECTION, SITE NOT SPECIFIED SNOMED Code(s): 21108353 Plan: 1patient presented to hospital with sepsis in this patient who did have a fever elevated white count meeting criteria for the SIRS/sepsis source is the right foot wound with secondary cellulitis of the right lower extremity patient also have significantly positive UA with mental status changes a component of UTI not entirely excluded. Keeping in mind patient is a long term resident will need to cover for the MRSA 2local cultures obtained which are currently growing MRSA and strep, urine positive for drug-resistant Proteus 3patient is afebrile white count has normalized. 4patient to continue with daptomycin and Zosyn for his drug-resistant UTI, requested midline and continue with the IV antibiotic for about a week on discharge Dictation was produced using [employer] dictation software. please excuse any grammatical, word or spelling errors. Time with Patient: Less than 30
[2025-03-25] MEDS: ZINC OXIDE PASTE (Z-GUARD) 1 APPLIC TOPICAL PRN (09:52)
[2025-03-25 10:20] LABS: HCT 33.2 % (39.6-50.0); HGB 9.6 g/dL (13.0-17.0); MCHC 28.9 g/dL (32.0-37.0); MCV 76.1 FL (80.0-97.0); Mean Platelet Volume 10.6 FL (9.5-12.2); NRBC Per 100 WBC 0 X 10*3/uL (0.00-0.01); Platelet Count 279 X 10*3/uL (140-440); RBC 4.36 X 10*6/uL (4.40-5.60); RDW 19.4 % (11.5-14.5); WBC 8.16 X 10*3/uL (4.50-10.00)
[2025-03-25 10:21] LABS: Basophils # (A) 0.08 X 10*3/uL (0.00-0.10); Eosinophils # (A) 0.61 X 10*3/uL (0.04-0.35); Eosinophils % (A) 7.5 %; Lymphocytes # (A) 1.75 X 10*3/uL (0.90-5.00); Lymphocytes % (A) 21.4 %; Monocytes # (A) 0.57 X 10*3/uL (0.20-1.00); Neutrophils # (A) 4.86 X 10*3/uL (1.80-7.70); Neutrophils % (A) 59.5 %
[2025-03-25 10:24] LABS: Blood Urea Nitrogen 10.5 mg/dL (9.0-27.0); Calcium 7.7 mg/dL (8.7-10.3); Carbon Dioxide 24.3 mmol/L (21.6-31.8); Chloride 105 mmol/L (96-109); Glucose 84 mg/dL (70-110); Potassium 3.2 mmol/L (3.5-5.5); Sodium 141 mmol/L (135-145)
[2025-03-25] MEDS ORDERED: Potassium Replacement Protocol 1 EACH MISC MISCELLANE PRN (15:59)
[2025-03-25 16:03] VITALS: BMI 33.0
--- NOTE | 2025-03-25 16:22 | P.DS ---
Providers Date of admission: 03/18/25 09:03 Attending physician: Amrik Beltran MD Consults: 03/16/25 15:07 Consult Physician Routine Consulting Provider: Jhon Felix Consult Reason/Comments: cellulitis Do you want consulting provider notified?: Already Contacted 03/19/25 22:34 Consult Physician Urgent Consulting Provider: Mal Jackson Consult Reason/Comments: Right foot/lower extremity wounds, cellulitis ?? Debridement Do you want consulting provider notified?: Yes Primary care physician: [facility] Course: Diagnosis: Sepsis with fever and leukocytosis Right foot and leg cellulitis with infected wound on the dorsum of the right foot. Cultures growing MRSA and strep a Acute urinary tract infection secondary to Proteus, resistant to many antibiotics. Sensitive to Zosyn Chest pain with mildly elevated troponin, cardiac causes ruled out most likely secondary to infection. Hypothyroidism Paroxysmal atrial fibrillation Dementia Hypertension Hyperlipidemia Chronic anemia Chronic hypoxic respiratory failure Hospital course: 79 years old male who was sent from [facility] for possible chest pain. Patient evaluated by scalp treatment specialist and cardiac causes ruled out. Chest pain resolved. Patient was confused found to have metabolic encephalopathy secondary to right leg cellulitis with culture growing MRSA and acute urinary tract infection secondary to Proteus which is resistant. Patient was evaluated by ID team and he was placed on IV daptomycin and Zosyn. Patient showed interval improvement and mentation improved back to baseline. UTI and right leg cellulitis also improving. Right leg in a dressing. No significant urinary symptoms. No diarrhea or vomiting or abdominal pain. No chest pain or dyspnea. No other new complaints. Patient agreeable to go to his [facility] today Patient has left arm PICC line in place, patient will be discharged on IV antibiotics Zosyn and IV daptomycin both x [address] Gomez recommendation was confirmed today Problems and management plan were discussed with the patient and he verbalized understanding and acceptance Patient was found stable and can be discharged home in guarded prognosis however he needs follow-up as an outpatient. Patient was instructed to follow up with PCP within one week and patient agrees To follow-up with ID team in 1 week Physical exam Gen: patient is a AAOx3, no distress CVS: S1-S2, RRR, no murmur Lungs: B/L CTA, no wheezing Abdomen: soft, no distention, no tenderness, positive bowel sounds -Extremity: no leg edema or induration. Right leg cellulitis, with a dressing in place. Improving. Left arm PICC line in place Time spent more than 35 minutes Patient Condition at Discharge: Stable Plan - Discharge Summary New Discharge Prescriptions: New Nystatin 100,000 Unit/gm Powd [Mycostatin Powder] 1 applic TOPICAL TID PRN #5 each PRN Reason: See Comments DAPTOmycin [Cubicin] 350 mg IVPB Q24H 7 Days #7 each Piperacillin-Tazobactam [Zosyn] 3.375 gm IVPB Q8HR 7 Days #21 each Continue Torsemide [Demadex] 20 mg PO DAILY Potassium Chloride [K-Tab ER] 10 meq PO DAILY Levothyroxine Sodium [Synthroid] 50 mcg PO DAILY Sertraline [Zoloft] 25 mg PO DAILY Apixaban [Eliquis] 5 mg PO BID Aspirin EC [Ecotrin Low Dose] 81 mg PO DAILY Acetaminophen [Tylenol Arthritis] 650 mg PO Q6H PRN PRN Reason: Pain Or Fever > 100.5 Multivit-Min/FA/Lycopen/Lutein [Centrum Silver Tablet] 1 tab PO DAILY Esomeprazole Magnesium [NexIUM] 20 mg PO DAILY carvediloL [Coreg] 6.25 mg PO BID Miconazole 2% Powder 1 applic TOPICAL BID Discontinued amLODIPine [Norvasc] 5 mg PO DAILY Empagliflozin [Jardiance] 10 mg PO DAILY Discharge Medication List Levothyroxine Sodium [Synthroid] 50 mcg PO DAILY 04/17/18 [History] Potassium Chloride [K-Tab ER] 10 meq PO DAILY 04/17/18 [History] Torsemide [Demadex] 20 mg PO DAILY 04/17/18 [History] Sertraline [Zoloft] 25 mg PO DAILY 06/19/18 [History] Acetaminophen [Tylenol Arthritis] 650 mg PO Q6H PRN 03/16/25 [History] Apixaban [Eliquis] 5 mg PO BID 03/16/25 [History] Aspirin EC [Ecotrin Low Dose] 81 mg PO DAILY 03/16/25 [History] Esomeprazole Magnesium [NexIUM] 20 mg PO DAILY 03/16/25 [History] Miconazole 2% Powder 1 applic TOPICAL BID 03/16/25 [History] Multivit-Min/FA/Lycopen/Lutein [Centrum Silver Tablet] 1 tab PO DAILY 03/16/25 [History] carvediloL [Coreg] 6.25 mg PO BID 03/16/25 [History] DAPTOmycin [Cubicin] 350 mg IVPB Q24H 7 Days #7 each 03/25/25 [Rx] Nystatin 100,000 Unit/gm Powd [Mycostatin Powder] 1 applic TOPICAL TID PRN #5 each 03/25/25 [Rx] Piperacillin-Tazobactam [Zosyn] 3.375 gm IVPB Q8HR 7 Days #21 each 03/25/25 [Rx] Follow up Appointment(s)/Referral(s): Americo Darden MD [Primary Care Provider] - 1-2 days Activity/Diet/Wound Care/Special Instructions: heart healthy diet , chopped activity as tolerated Discharge Disposition: TRANSFER TO SNF/ECF
[2025-03-25 17:47] VITALS: TEMP 97.9
[2025-03-25 20:59] VITALS: BP 143/63; PULSE 63; RESP 17
--- NOTE | 2025-03-26 17:11 | P.PN ---
Subjective Progress Note Date: 03/25/25 Principal diagnosis: Reason for follow-up is sepsis/cellulitis/UTI Patient is a 59-year-old male with a past medical history significant forAtrial Fibrillation, Dementia, Deep Vein Thrombosis (DVT), GERD/Reflux, Hyperlipidemia, Hypertension, Vascular Disorder, Augmentin be changed, dementia alf resident patient has been sent to the concerning for chest disco mfort patient also noted to be septic with concern for right lower extremity cellulitis plus concern for UTI prompting this consultation. On today's evaluation that is 03/25/2025, patient has been afebrile, patient is breathing comfortably and is currently on room air, patient denies having any chest pain and cough, patient denies nausea vomiting or diarrhea and no abdominal pain denies pain to the right lower extremity wants to go home. Patient did have a white count of 8.16, creatinine is 1.0 Objective - Vital Signs Vital signs: Vital Signs Temp 96.9 F L 03/25/25 12:45 Pulse 60 03/25/25 12:45 Resp 18 03/25/25 12:45 BP 117/66 03/25/25 12:45 Pulse Ox 96 03/25/25 12:45 FiO2 Intake & Output 03/24/25 03/25/25 03/25/25 18:59 06:59 18:59 Weight 104.326 kg Other: Voiding Method Diaper Diaper # Voids 1 1 1 # Bowel Movements 1 - Exam GENERAL DESCRIPTION: An elderly male lying in bed in no distress RESPIRATORY SYSTEM: Unlabored breathing , decreased breath sounds at bases HEART: S1 S2 regular rate and rhythm , ABDOMEN: Soft , no tenderness EXTREMITIES: Right leg swelling redness slightly decreased - Labs CBC & Chem 7: 03/25/25 05:14 03/25/25 05:14 Labs: Abnormal Lab Results - Last 24 Hours (Table) 03/25/25 03/25/25 Range/Units 05:14 05:14 RBC 4.36 L (4.40-5.60) X 10*6/uL Hgb 9.6 L (13.0-17.0) g/dL Hct 33.2 L (39.6-50.0) % MCV 76.1 L (80.0-97.0) FL MCH 22.0 L (27.0-32.0) pg MCHC 28.9 L (32.0-37.0) g/dL RDW 19.4 H (11.5-14.5) % Immature Gran # 0.29 H (0.00-0.04) X 10*3/uL Eosinophils # 0.61 H (0.04-0.35) X 10*3/uL Potassium 3.2 L (3.5-5.5) mmol/L BUN/Creatinine Ratio 10.50 L (12.00-20.00) Ratio Calcium 7.7 L (8.7-10.3) mg/dL Assessment and Plan (1) Sepsis Status: Acute Code(s): A41.9 - SEPSIS, UNSPECIFIED ORGANISM SNOMED Code(s): 42388453 (2) Cellulitis of right leg Status: Acute Code(s): L03.115 - CELLULITIS OF RIGHT LOWER LIMB SNOMED Code(s): 46746554649761301 (3) UTI (urinary tract infection) Status: Acute Code(s): N39.0 - URINARY TRACT INFECTION, SITE NOT SPECIFIED SNOMED Code(s): 38011778 Plan: 1patient presented to hospital with sepsis in this patient who did have a fever elevated white count meeting criteria for the SIRS/sepsis source is the right foot wound with secondary cellulitis of the right lower extremity patient also have significantly positive UA with mental status changes a component of UTI not entirely excluded. Keeping in mind patient is a alf resident will need to cover for the MRSA 2local cultures obtained which are currently growing MRSA and strep, urine positive for drug-resistant Proteus 3patient is afebrile white count has normalized plan is to finish therapy with a total 7-day course of daptomycin and Zosyn on discharge and close outpatient follow-up Dictation was produced using [employer] dictation software. please excuse any grammatical, word or spelling errors. Time with Patient: Less than 30
--- NOTE | 2025-03-28 11:59 | CDI ---
Documentation Clarification Form Date: 03/28/2025 11:40:50 AM From: Anna Max Phone: Admit Date: 03/18/2025 09:03:00 AM Patient Name: Paco Whaley Visit Number: [id number] Discharge Date: 03/25/2025 08:15:00 PM ATTENTION: The Clinical Documentation Specialists (CDI) and [facility] Coding Staff appreciate your assistance in clarifying documentation. Please respond to the clarification below the line at the bottom and electronically sign. The CDI & [facility] Coding staff will review the response and follow-up if needed. Please note: Queries are made part of the Legal Health Record. If you have any questions, please contact the author of this message via ITS. Doctor/Provider: Amrik E Sheet Stage I pressure ulcer to the coccyx is documented per Consult 03/22. For each diagnosis, documentation must be clear to determine if the condition was present at the time of the patients inpatient admission or developed during the hospital stay. Additional clarification regarding the Stage I pressure ulcer to the coccyx is requested. History/Risk Factors: 79yo M, Sepsis w MRSA & Strep Am RLE cellulitis, PU dorsum RT foot, UTI w Proteus, > troponins, ELIS, chronic PAF, HTN, metabolic encephalopathy, HLD, CHRF on O2, dementia, chronicanemia Clinical Indicators: Seen on 6 N. for apressure ulcerationto the buttocks. At this time no openulcerationsnoted there isexcoriationand irritationpresent Treatment: Utilize zinc barrier cream as needed. Definition of Present on Admission (POA): A diagnosis present at the time the order for admission to inpatient status was written. Please clarify if the Stage I pressure ulcer to the coccyx was POA [ ] Y = Yes, the condition was present at the time of the order for inpatient admission. [ ] N = No, the condition was not present at the time of the order for inpatient admission. [ x] W = Clinically undetermined if the condition was present at the time of the order for inpatient admission. (Template Last Revised: December 2020) MTDD
== END 2025-03-25 20:15 | DRG 853 ==
LOC: EC 11:53 → 6NMEDSUR 14:21 → OBSVTOIN 03-18 09:03
PROVIDERS: ADMIT Internal Medicine; ATTEND Internal Medicine
PROC: 0JBQ0ZZ Excision of Right Foot Subcutaneous Tissue and Fascia, Open Approach (ICD-10-PCS; principal; 2025-03-20)
DX: A41.02 Sepsis due to Methicillin resistant Staphylococcus aureus (principal); G93.41 Metabolic encephalopathy; I25.5 Ischemic cardiomyopathy; L89.151 Pressure ulcer of sacral region, stage 1; F03.93 Unspecified dementia, unspecified severity, with mood disturbance; E03.9 Hypothyroidism, unspecified; I11.9 Hypertensive heart disease without heart failure; D64.9 Anemia, unspecified; J96.11 Chronic respiratory failure with hypoxia; F03.94 Unspecified dementia, unspecified severity, with anxiety; N39.0 Urinary tract infection, site not specified; L03.115 Cellulitis of right lower limb; N17.9 Acute kidney failure, unspecified; I48.0 Paroxysmal atrial fibrillation; L97.511 Non-pressure chronic ulcer of other part of right foot limited to breakdown of skin; B95.0 Streptococcus, group A, as the cause of diseases classified elsewhere; F89 Unspecified disorder of psychological development; B96.4 Proteus (mirabilis) (morganii) as the cause of diseases classified elsewhere; R79.89 Other specified abnormal findings of blood chemistry; E78.5 Hyperlipidemia, unspecified; B96.89 Other specified bacterial agents as the cause of diseases classified elsewhere; Z86.14 Personal history of Methicillin resistant Staphylococcus aureus infection; Z86.718 Personal history of other venous thrombosis and embolism; Z79.01 Long term (current) use of anticoagulants; Z79.890 Hormone replacement therapy; Z79.899 Other long term (current) drug therapy; Z79.82 Long term (current) use of aspirin; Z79.84 Long term (current) use of oral hypoglycemic drugs
CPT/HCPCS: 36410; 36415; 71045; 71046; 76937; 78315; 80048; 80053; 80061; 80202; 81001; 82565; 83735; 83880; 84484; 85025; 85379; 85610; 85730; 87040; 87070; 87075; 87077; 87086; 87186; 87205; 93005; 93306; 94640; 99285